=== PATIENT | male | born 1990 | race Caucasian/White ===

== ENCOUNTER 2020-11-21 18:09 | Emergency (ER) | payer OTHER, SELFPAY ==
--- NOTE | 2020-11-21 18:14 | ED.EYEPROB ---
HPI - Eye Problem General Chief complaint: Eye Problems Stated complaint: left eye Time Seen by Provider: 11/21/20 18:14 Source: patient and RN notes reviewed History of Present Illness HPI Narrative: Patient is a 30-year-old male who presents the urgent care with complaints of left eye redness and matted shut when he woke up this morning. Patient states he did not have time to be seen in the clinic earlier because he worked all day . Patient has not taken anything [id number] for his symptoms. States that he is having pain to the left eye. Denies of any known trauma or injury. No other acute complaints. No acute distress noted. Patient aware of the plan of care. Some parts of this dictation were generated by voice recognition software and may contain typographical and/or grammatical inaccuracies. Related Data Home Medications Medication Instructions Recorded Confirmed doxycycline hyclate 100 mg PO DAILY 11/21/20 11/21/20 ibuprofen 600 mg PO PRN PRN 11/21/20 11/21/20 sulfamethoxazole-trimethoprim 80 tablet PO DAILY 11/21/20 11/21/20 Allergies Allergy/AdvReac Type Severity Reaction Status Date / Time Penicillins Allergy Hives Verified 11/21/20 18:22 Review of Systems Review of Systems: CONSTITUTIONAL: Denies fever, chills, or sweats. EYES: Reports of redness, matting and pain to the left eye ENT: Denies rhinorrhea, congestion, sore throat, or otalgia. CARDIOVASCULAR: Denies chest pain, palpitations, or edema. RESPIRATORY: Denies cough or dyspnea. GASTROINTESTINAL: Denies abdominal pain, nausea, vomiting, or diarrhea. GENITOURINARY: Denies dysuria or hematuria. SKIN: Denies rash or itching. MUSCULOSKELETAL: Denies back pain, joint pain, or myalgia. NEUROLOGIC: Denies headache, numbness, or weakness. All other systems reviewed are negative, except as documented in HPI. PMFSH Comments At the time of my signature, I reviewed and agree with the nursing past medical, surgical, social, and family history. There is no relevant family history pertinent to the patient complaint. Exam Narrative: GENERAL: This is a well-nourished, well-developed patient, in no apparent distress. HEAD: normocephalic, atraumatic. EYES: PERRL. Sclera clear/white. Vision is grossly intact. Mild injected left conjunctive a with clear to yellow drainage from inner canthus lower lid hordeolum EARS: External ears normal NOSE: External nose normal with no obvious nasal discharge, nares without redness, no rhinorrhea. THROAT: Mucous membranes moist NECK: Neck supple CARDIOVASCULAR: Regular rate and rhythm without murmurs, gallops, or rubs. RESPIRATORY: Clear to auscultation. Breath sounds equal bilaterally. No wheezes, rales, or rhonchi. SKIN: warm, intact with no suspicious lesions or rash, good texture and turgor. NEURO: awake, alert, and oriented to person, place and time. There were no obvious focal neurologic abnormalities. EXTREMITIES: No clubbing, cyanosis, or edema. Course Vital Signs Vital signs: Vital Signs Temperature 99.3 F 11/21/20 18:25 Pulse Rate 78 11/21/20 18:25 Respiratory Rate 16 11/21/20 18:25 Blood Pressure 141/78 H 11/21/20 18:25 Pulse Oximetry 100 11/21/20 18:25 Temperature 99.3 F 11/21/20 18:25 Pulse Rate 78 11/21/20 18:25 Respiratory Rate 16 11/21/20 18:25 Blood Pressure 141/78 H 11/21/20 18:25 Pulse Oximetry 100 11/21/20 18:25 Reviewed-patient is informed that they may have pre-hypertension or hypertension based on a blood pressure reading in the department. I recommend the patient call the primary care provider listed on their discharge instructions or a physician of their choice this week to arrange follow-up for further evaluation of possible pre-hypertension or hypertension. MDM - Eye Problem MDM Narrative Medical decision making narrative: Advised patient to use a warm compress to the left eye. Make sure you are using a new wash rag with each application. Use the drops to
[2020-11-21 18:25] VITALS: BP 141/78; PULSE 78; RESP 16; TEMP 37.4; O2SAT 100
== END 2020-11-21 18:48 | disposition home or self-care (01) ==
PROVIDERS: Emergency Provider Nurse Practitioner Family
DX: H00.015 Hordeolum externum left lower eyelid (principal); Z79.1 Long term (current) use of non-steroidal anti-inflammatories (NSAID)
CPT/HCPCS: 99213; G0463

== ENCOUNTER 2021-07-12 18:15 | Emergency (ER) | payer OTHER, SELFPAY ==
--- NOTE | ~2021-07-12 | XR_ITS ---
EXAMINATION: XR chest 2V DATE: 07/12/2021 18:58 INDICATION: Cough and fever TECHNIQUE: PA and lateral views of the chest are obtained. COMPARISON: None available FINDINGS: There are minimal patchy bilateral airspace opacities in the mid and lower lung zones. Ther e is no pleural effusion or pneumothorax. The cardiomediastinal silhouette is normal. The visualized bones and soft tissues are unremarkable. IMPRESSION: 1. Minimal patchy airspace opacities of the mid and lower lung zones, consistent with atelectasis [place] pneumonia. Reviewed, dictated and finalized at location F. IMPRESSION: 1. Minimal patchy airspace opacities of the mid and lower lung zones, consisten t with atelectasis versus pneumonia.
[2021-07-12 18:20] VITALS: BP 140/86; PULSE 101; RESP 14; TEMP 37.6; O2SAT 98
--- NOTE | 2021-07-12 18:21 | ED.URI ---
HPI - URI/Sore Throat General Chief Complaint: Upper Respiratory Infection Stated Complaint: Fever/Sore Throat Time Seen by Provider: 07/12/21 18:44 Source: patient and RN notes reviewed Mode of arrival: ambulatory Limitations: no limitations History of Present Illness HPI Narrative: 30-year-old male presents with concern for fever up to 103, cough, chest tightness, sweats shortness of breath, scratchy throat. Reports he coughed 2 days ago causing a sudden pain in his mid upper back. Reports back pain is exacerbated by certain movements. Reports is relieved by laying on his side. He reports he has been taking DayQuil with minimal relief. He is a heavy smoker. MD elicited complaint: fever and cough Related Data Home Medications Medication Instructions Recorded Confirmed diazepam [Valium] 5 mg PO DAILY 07/12/21 07/12/21 divalproex [Depakote] 125 mg PO DAILY 07/12/21 07/12/21 Allergies Allergy/AdvReac Type Severity Reaction Status Date / Time Penicillins Allergy Hives Verified 07/12/21 18:39 Review of Systems Review of Systems: CONSTITUTIONAL: Reports malaise, chills, sweats, fever. EYES: Denies visual changes, redness, or discharge. ENT: Reports rhinorrhea, congestion, scratchy throat. Denies sinus pain, otalgia and sore throat. CARDIOVASCULAR: Denies chest pain, palpitations, or edema. RESPIRATORY: Reports cough. Denies dyspnea. GASTROINTESTINAL: Denies abdominal pain, nausea, vomiting, diarrhea SKIN: Denies rash or itching. MUSCULOSKELETAL: Denies myalgia. Reports back pain NEUROLOGIC: Denies headache. All systems reviewed & are unremarkable except as noted in HPI and below PMFSH Comments At time of signature, agree with nursing past medical, surgical, social and family history. There is no relevant family history pertinent to the presenting complaint Exam Narrative: GENERAL: Nontoxic-appearing and in no acute distress. HEAD: Normocephalic EYES: PERRLA, conjunctivae clear ENT: Nares clear, clear discharge. Mucous membranes moist. TM pearly morales with dull light reflex bilaterally; no tragal tenderness. Oropharynx erythematous without lesions. Tonsils enlarged and without exudate, no drooling, no hoarseness, no trismus, uvula midline. NECK: Supple. No lymphadenopathy CHEST: Clear to auscultation, breath sounds equal. No wheezing, rhonchi, rales, or stridor. No respiratory distress, speaks in full sentences. HEART: Regular rate and rhythm. No murmur heard. SKIN: Warm, no rash. Diaphoresis noted NEURO: Alert and oriented x3. PSYCH: Normal mood and affect Course Course Emergency Course: Patient is aware of diagnosis, understands and agrees to treatment plan. Anticipatory guidance given. Patient agrees to follow-up as directed and is aware of reasons to seek care at the emergency department. Portions of this record may have been created with voice recognition software Level of Care: Express Care Visit Vital Signs Vital signs: Reviewed. MDM - URI/Sore Throat MDM Narrative Medical decision making narrative: Differential diagnosis considered: Diallo virus, strep pharyngitis, allergic rhinitis, upper respiratory tract infection, sinusitis, rhinosinusitis, nasopharyngitis. viral pharyngitis, otitis media, otitis externa, pneumonia, bronchitis, viral cough syndrome, viral syndrome, and influenza. Exam findings show no acute concerns or changes; patient is non-toxic appearing and is in no distress. Patient is appropriate for outpatient treatment and follow-up. Lab Data Attestation: I reviewed the patient's lab results. Imaging Data My impression: Images reviewed, interpreted by radiologist, agree, see report. Radiologist's impression: EXAMINATION: XR chest 2V DATE: 07/12/2021 18:58 INDICATION: Cough and fever TECHNIQUE: PA and lateral views of the chest are obtained. COMPARISON: None available FINDINGS: There are minimal patchy bilateral airspace opacities in the mid and lower lung zones. There is no pleural
== END 2021-07-12 19:23 | disposition home or self-care (01) ==
PROVIDERS: Emergency Provider Nurse Practitioner; PCP Nurse Practitioner Family
DX: J18.1 Lobar pneumonia, unspecified organism (principal); K21.9 Gastro-esophageal reflux disease without esophagitis; E11.9 Type 2 diabetes mellitus without complications; F41.9 Anxiety disorder, unspecified
CPT/HCPCS: 71046; 87804; 99213; G0463

== ENCOUNTER 2023-06-18 14:59 | Emergency (ER) | payer OTHER, SELFPAY ==
[2023-06-18 15:10] VITALS: BP 137/88; PULSE 73; RESP 18; TEMP 37.2; O2SAT 100
--- NOTE | 2023-06-18 15:20 | ED.EYEPROB ---
HPI - Eye Problem General Chief complaint: Eye Problems Stated complaint: Eye Problem History of Present Illness HPI Narrative: Pt is a 32 y/o male, presents to with right eye crusting, mattering and itching since waking this morning. He denies vision changes or pain to the eye, he has no photophobia and he does not wear contact lenses or have hx of injury. He is caring for his son with pink eye and feels he must have contaminated his own eye, prompting his visit. He has no other complaints. Related Data Allergies Allergy/AdvReac Type Severity Reaction Status Date / Time Penicillins Allergy Swelling Verified 06/18/23 15:16 of Lip/Tongue/Throat Review of Systems Eyes: Comments: refer to HPI Exam Const: General: healthy appearing and no acute distress Nutritional Appearance: well nourished Orientation/consciousness: patient oriented x3 Limitations: no limitations HENMT: Head: normal to inspection Ears: external ears normal and TM's normal bilaterally Face and sinus: normal facial exam and sinuses nontender Mouth: Yes Normal oral and palatal mucosa present Throat: posterior oropharynx normal and uvula midline Eyes: Conjunctivae: conjunctival abnormality right conjunctival injection and discharge purulent Other: no periorbital swelling or erythema, no TTP Neck: Neck: normal visual inspection, no lymphadenopathy and no meningeal signs Resp: Effort & Inspection: normal respiratory effort Auscultation: clear to auscultation bilaterally Cardio: Rate: regular rate Rhythm: regular rhythm Neuro: General: patient oriented x3, moves all extremities, no meningeal signs, no focal motor deficits and CN's II-XI intact bilaterally Cranial nerves: Yes Nystagmus not present Speech: normal speech Gait exam (Neuro): Normal gait present Extrem: General: normal to inspection Course Course Emergency Course: plan to treat with abx eye drops, good hand washing stressed, FU with optometry or PCP if symptoms are not resolving Level of Care: Express Care Visit ([id number]) MDM - Eye Problem MDM Narrative Medical decision making narrative: plan to treat with abx eye drops, good hand washing stressed, FU with optometry or PCP if symptoms are not resolving, ER if pain or vision changes arise Differential Diagnosis Differential diagnosis: Likely conjunctivitis Discharge Plan Discharge Clinical Impression: Bacterial conjunctivitis Patient Disposition: Home, Self-Care Condition: Stable Instructions: Antibiotic Form, Conjunctivitis (ED) Additional Instructions: WASH HANDS WELL BEFORE AND AFTER INSTILLING EYE DROPS, USE DIRECTED, SEE YOUR EYE DOCTOR FOR FOLLOW UP IF SYMPTOMS ARE NOT RESOLVING IN 2 DAYS Prescriptions: New tobramycin 0.3 % drops 1 drp RIGHT EYE Q4H 5 Days Qty: 5 0RF Follow-up/Referrals: Luevano,Arleth Brooke APN [Primary Care Provider] - Stand Alone Forms: Work/School Release IP Time of Disposition: 15:36
== END 2023-06-18 15:42 | disposition home or self-care (01) ==
PROVIDERS: Emergency Provider Nurse Practitioner Family; PCP Nurse Practitioner Family
DX: H10.9 Unspecified conjunctivitis (principal)
CPT/HCPCS: 99213; G0463

== ENCOUNTER 2023-10-28 08:40 | Emergency (ER) | payer OTHER, SELFPAY ==
[2023-10-28 08:45] VITALS: BP 151/79; PULSE 85; RESP 18; TEMP 36.7; O2SAT 100
--- NOTE | 2023-10-28 08:48 | ED.ABDPAIN ---
HPI - Abdominal Pain General Chief Complaint: Abdominal Pain Stated Complaint: Abdominal Pain Time Seen by Provider: 10/28/23 08:48 Source: patient and RN notes reviewed Mode of arrival: ambulatory Limitations: no limitations History of Present Illness HPI narrative: 33 year old male presented for complaint of left-sided abdominal pain for 5 days. At the onset he reports vomiting which has resolved. Endorses diarrhea over the last 2 days. He denies hematochezia or melena. Denies chest pain, palpitations, dizziness, fevers or chills. He has been able to tolerate oral intake. Pain is described as sharp and stabbing occurring every 5 minutes. Has not taken anything for symptoms. Related Data Allergies Allergy/AdvReac Type Severity Reaction Status Date / Time Penicillins Allergy Swelling Verified 06/18/23 15:16 of Lip/Tongue/Throat Review of Systems Review of Systems: CONSTITUTIONAL: Denies body aches, fever, chills ENT: Denies rhinorrhea, congestion CARDIOVASCULAR: Denies chest pain, palpitations, or edema. RESPIRATORY: Denies cough or dyspnea. GASTROINTESTINAL: Endorses abdominal pain, nausea, vomiting, diarrhea. Denies hematochezia, melena, hematemesis GENITOURINARY: Denies dysuria, hematuria, or CVA tenderness. SKIN: Denies rash, itching, or wounds. MUSCULOSKELETAL: Denies back pain, joint pain, or myalgia. NEUROLOGIC: Denies headache, numbness, tingling, or weakness. All systems reviewed & are unremarkable except as noted in HPI and below PMFSH Social History Social History (Updated 10/28/23 @ 09:40 by Flora Sr, YENIFER) Smoking status: Current every day smoker Tobacco type: cigarettes Substance use type: marijuana Comments At time of signature, I have reviewed and agree with nursing past medical, surgical, social and family history unless otherwise noted. Please see nursing chart for further information. There is no relevant family history pertinent to the presenting complaint Exam Narrative: GENERAL: Well-appearing, and in no acute distress. EYES: EOMI. Conjunctivae normal. ENT: Mucous membranes pink and moist. CHEST: No respiratory distress. Clear to auscultation. HEART: Regular rate and rhythm. No murmur appreciated. Normal peripheral pulses. ABDOMEN: abd soft, nondistended, normal active bowel sounds. Tender abdomen LUQ and LLQ; No guarding, rebound tenderness, asymmetry SKIN: Warm, dry, no rash. Capillary refill normal. Normal skin turgor. NEURO: No focal deficits. Alert and oriented x3. PSYCH: Normal affect. Course Course Emergency Course: Patient is aware of diagnosis, understands and agrees to treatment plan. Anticipatory guidance given. Patient agrees to follow-up as directed and is aware of reasons to seek care at the emergency department. Portions of this record may have been created with voice recognition software Level of Care: Express Care Visit Vital Signs Vital signs: Vital Signs Temperature 98.1 F 10/28/23 08:45 Pulse Rate 85 10/28/23 08:45 Respiratory Rate 18 10/28/23 08:45 Blood Pressure 151/79 H 10/28/23 08:45 Pulse Oximetry 100 10/28/23 08:45 Oxygen Delivery Room Air 10/28/23 08:45 Temperature 98.1 F 10/28/23 08:45 Pulse Rate 85 10/28/23 08:45 Respiratory Rate 18 10/28/23 08:45 Blood Pressure 151/79 H 10/28/23 08:45 Pulse Oximetry 100 10/28/23 08:45 Oxygen Delivery Room Air 10/28/23 08:45 Transfer Transfered to: [facility]) Transportation: Other ( Private vehicle) Transfer rationale: Pt is agreeable to transfer. Requests transfer to [facility] via private vehicle/ ambulance. Risks of transportation reviewed with pt including injury, worsening of condition and . v/u. Report called to hospital, spoke with Lisa Silva NP, accepting physician. Pt is in stable condition at time of transfer. Advised to remain NPO and go directly to the hospital. MDM -
== END 2023-10-28 09:09 | disposition short-term general hospital (02) ==
PROVIDERS: Emergency Provider Nurse Practitioner Family; PCP Nurse Practitioner Family
DX: R10.32 Left lower quadrant pain (principal); F17.210 Nicotine dependence, cigarettes, uncomplicated; F12.90 Cannabis use, unspecified, uncomplicated
CPT/HCPCS: 99212; G0463

== ENCOUNTER 2024-03-21 11:33 | Emergency (ER) | payer SELFPAY ==
[2024-03-21 11:40] VITALS: BP 145/91; PULSE 101; RESP 16; TEMP 37.3; O2SAT 100
--- NOTE | 2024-03-21 13:09 | ED.GENADULT ---
HPI - General Adult General Chief complaint: Upper Respiratory Infection Stated complaint: Sore Throat Source: patient Mode of arrival: ambulatory Limitations: no limitations History of Present Illness HPI narrative: Patient presents for evaluation of sick symptoms since yesterday. Symptoms include fever, nasal congestion, thick green nasal discharge, cough, sore throat, bilateral otalgia and nausea. No chills, vomiting, diarrhea, shortness of breath. He smokes 1 ppd. He is not taking any medication to assist with his symptoms. A few of his family members have been sick recently. Related Data Allergies Allergy/AdvReac Type Severity Reaction Status Date / Time Penicillins Allergy Swelling Verified 03/21/24 12:35 of Lip/Tongue/Throat Review of Systems Review of Systems: CONSTITUTIONAL: Reports fever. Denies chills, or sweats. EYES: Denies visual changes, redness, or discharge. ENT: Reports sinus congestion, thick green drainage from the nares, sore throat, bilateral otalgia CARDIOVASCULAR: Denies chest pain, palpitations, or edema. RESPIRATORY: Reports cough. Denies shortness of breath. GASTROINTESTINAL: Reports nausea. Denies abdominal pain, vomiting, or diarrhea. GENITOURINARY: Denies dysuria or hematuria. SKIN: Denies rash or itching. MUSCULOSKELETAL: Denies back pain, joint pain, or myalgia. NEUROLOGIC: Denies headache, numbness, dizziness, or weakness. PSYCHIATRIC: Denies anxiety or depression. [facility] Past Medical History Medical History No pertinent past medical history Surgical History Surgical History History of tonsillectomy Family History Family History Mother Family history non-contributory Social History Social History Smoking packs per day: 1 Smoking cigarettes per day: 20.0 Smoking status: Current every day smoker Tobacco type: cigarettes Substance use type: marijuana Living arrangements: with family Gender identity (if verbalized by the patient): Male Spiritual care concerns: No Exam Narrative: GENERAL: Well-appearing, well-nourished, and in no acute distress. HEAD: Normocephalic, atraumatic. EYES: PERRLA and EOMI. ENT: Nares clear, no rhinorrhea or epistaxis. Mucous membranes moist. There is posterior pharyngeal erythema. Bilateral TMs pearly morales nonbulging NECK: Supple. No adenopathy or masses. No carotid bruits or JVD CHEST: Clear to auscultation. No respiratory distress. No wheezes rales or rhonchi HEART: Regular rate and rhythm. No murmur heard. Normal peripheral pulses. ABDOMEN: Soft, nontender, nondistended, normal active bowel sounds. EXTREMITIES: Normal range of motion. No edema. SKIN: Warm, dry, no rash. NEURO: No focal deficits. Alert and oriented x3. PSYCH: Normal mood and affect. Course Course Emergency Course: This is a 33-year-old male who presented for evaluation of sick symptoms. He meets criteria for bacterial sinusitis based upon mucopurulent discharge. Will discharge with azithromycin due to penicillin allergy. Will avoid a cephalosporins as his reaction to penicillins is angioedema. Advised smoking cessation. Follow up with primary provider. Go to the ER for worsening symptoms. Patient in agreement with plan of care. Level of Care: Express Care Visit Vital Signs Vital signs: Vital Signs Temperature 37.3 C 03/21/24 11:40 Pulse Rate 101 H 03/21/24 11:40 Respiratory Rate 16 03/21/24 11:40 Blood Pressure 145/91 H 03/21/24 11:40 Pulse Oximetry 03/21/24 11:40 Oxygen Delivery Room Air 03/21/24 11:40 Temperature 37.3 C 03/21/24 11:40 Pulse Rate 101 H 03/21/24 11:40 Respiratory Rate 16 03/21/24 11:40 Blood Pressure 145/91 H 03/21/24 11:40 Pulse Oximetry 100 03/21/24 11:40 Oxygen Delivery Room Air 03/21/24 11:40 Medical Decision Making Vital Signs Vital Signs: Vital Signs Temperature 37.3 C 03/21/24 11:40 Pulse Rate 101 H 03/21/24 11:40 Respiratory Rate 16 03/21/24 11:40 Blood Pressure 145/91 H 03/21/24 11:40 Pulse Oximetry 100 03/21/24 11:40 Oxygen Delivery Room Air 03/21/24 11:40 Temperature 37.3 C 03/21/24 11:40 Pulse Rate 101 H 03/21/24 11:40 Respiratory Rate 16 03/21/24 11:40 Blood Pressure 145/91 H 03/21/24 11:40 Pulse Oximetry 100 03/21/24 11:40 Oxygen Delivery Room Air 03/21/24 11:40 Lab Data Labs: Lab Results 03/21/24 Range/Units 13:10 POC Grp A Strep Screen Negative (Negative) Discharge Plan Discharge Clinical Impression: Sinusitis Patient Disposition: Home, Self-Care Condition: Stable Instructions: Antibiotic Form, Sinusitis (ED) Patient Language: Macedonian Prescriptions: New azithromycin 250 mg tablet See Rx Instructions .ROUTE .COMPLEX Qty: 6 0RF Rx Instructions: For 250 mg dose pack: take 500 mg today (day 1), then 250 mg for 4 days (days 2-5) Follow-up/Referrals: Luevano,Arleth Brooke APN [Primary Care Provider] - Stand Alone Forms: Work/School Release IP Time of Disposition: 13:07
[2024-03-21 13:12] LABS: EDSTREPNEGPOS1 Negative (Negative)
--- OUTSIDE RECORDS SUMMARY | 2024-03-28 06:36 | XMS_ITS | Data Portability ---
Author Organization [facility] [place] [facility] Address [address] [facility] [place] [address] Care Team Providers Care Professor Of Anthropology Name Role Phone ARLETH PATEL Primary Care Provider Assessment No assessment recorded. Plan of Treatment Reminders Order Date Submit Date Provider Last Modified By Organization Details Last Modified Time Details Appointments None recorded. Lab HbA1c (hemoglobin A1c), blood 2021 022 LEATHA In-Office Order, Internal Use Only DO Not Attach Compendium DO Not Attach Compendium, Do Not Delete/merge, [id number] 12:18:51 amylase + lipase, serum 2021 022 LEAT[facility], [address] [facility], [facility] [address], [place], [address], 08:08:44 H pylori urea breath test, co2 infrared 2021 022 LEATHA [facility], [address] [facility], [facility], [place], [address], 08:08:42 CMP, serum or plasma 2021 022 LE[facility]HA [facility], [address] [facility], [facility], [place], [address], 08:08:42 CBC w/ auto diff 2021 022 LE[facility], [address] [facility], [facility], [place], [address], 10/02/202 2 08:08:43 TSH, ultra-sensi tive, serum 2022 023 [facility], [address], [place], [address], 3 04:20:50 CMP, serum or plasma 2022 023 [facility], [address], [place], [address], 3 20:08:58 lipid panel, serum 2022 023 [facility] [facility], [address], [place], [address], 3 20:08:58 CBC 2022 023 [facility], [address], [place], [address], 3 20:08:59 Referral general surgeon referral 2023 024 [email or web address] [facility], [address] [facility], [address], [facility] Medical Office [facility], [place], [address], 4 12:11:18 Procedures None recorded. Surgeries None recorded. Imaging XR, abdomen 2021 022 [email or web address] [facility]) Scheduling, 2 [place], [address], 3 08:32:37 XR, knee, 3 view 2022 023 LEATHA [facility] ([facility]) Scheduling, 2 [place], [address], 3 03:07:18 XR, chest, 2 view 2022 023 LEATHA [facility] ([facility]) Scheduling, 2 [facility] [place], [address], 3 03:07:09 Medication Orders neomycin-po lymyxin-hyd rocort 3.5 mg-10,000 unit/mL-1 % ear drops,susp 2021 022 [email or web address] [facility] [id number], [address], 3 11:28:54 butalbital- acetaminoph en-caffeine 50 mg-325 mg-40 mg tablet 2021 022 [email or web address] [facility] [id number] In [facility], [address] [place] [address], [address], 3 11:28:48 albuterol sulfate HFA 90 mcg/actuati on aerosol inhaler 2022 024 [facility] [id number], [address], 4 11:30:45 ondansetron HCl 8 mg tablet 2023 024 [facility] [id number], [address], 4 11:56:57 Patient TargetsNo targets recorded. Patient Instructions Encounter Date Encounter Id Patient Instructions Last Modified By Organization Details Last Modified Time 07/27/2021 [id number] Quitting Tobacco : Care Instructions Not available 07/27/2021 15:42:05 When You Want to Lose Weight: Care Instructions Not available 07/27/2021 15:42:05 Take all antibiotics prescribed to you. If any fever or increase in pain, call/return to office. Not available 07/27/2021 15:41:58 keep f/u as planned Not available 07/27/2021 15:42:03 10/26/2021 [id number] learning about high blood sugar Not available 10/26/2021 12:05:20 Quitting Tobacco : Care Instructions Not available 10/26/2021 12:05:20 Learning About Benefits of Quitting Smoking Not available 10/26/2021 12:05:20 tobacco cessation Not availabl e 10/26/2021 12:05:20 When You Want to Lose Weight: Care Instructions Not available 10/26/2021 12:05:20 back care and preventing injuries: care instructions Not available 10/26/2021 12:05:20 tension headache : care instructions Not available 10/26/2021 12:05:20 Cont on current medications. Not available 10/26/2021 12:05:36 f/u 6 months DWP barriers to care: none Not available 10/26/2021 12:05:45 12/18/2021 [id number] Quitting Tobacco : Care Instructions Not available 12/18/2021 15:55:56 When You Want to Lose Weight: Care Instructions Not available 12/18/2021 15:52:48 abdominal pain: care instructions Not available 12/18/2021 15:52:48 Increase clear fluids. BRAT (bananas, rice, applesauce, toast) diet. If pain increases or if fever, go to ER. May need to f/u with GI if persists medical terminologist. Keep log of foods/symptoms. Not available 12/18/2021 15:55:39 Plan pending imaging and lab results. f/u as needed DWP barriers to care: none Not available 12/18/2021 15:55:32 12/07/2022 [id number] A healthy lifestyle: care instructions Not available 12/07/2022 16:38:33 Quitting Tobacco : Care Instructions Not available 12/07/2022 11:51:20 cough: care instructions Not available 12/07/2022 11:51:19 Increase intake of fresh fruits,?? and vegetables. Avoid packaged foods and fast foods. ?? Follow a low salt diet, drink at least 8-10 8oz glasses of water a day, exercise most days of the week. Take all medications as prescribed. Keep appointments with PCP and all specialists. [facility] Not available 12/07/2022 11:53:17 Plan pending imaging results. f/u as needed DWP barriers to care: none [facility] Not available 12/07/2022 11:53:11 11/24/2023 [id number] nausea and vomiting: care instructions s4 Not available 11/24/2023 11:56:53 A healthy lifestyle: care instructions s4 Not available 11/24/2023 11:56:53 Quitting Tobacco : Care Instructions [facility] Not available 11/24/2023 11:59:50 How can you care for yourself at home? Eat many small meals and snacks each day instead of three large meals. Choose lean meats. Eat no more than 5 to 6?? ounces of meat a day. Cut off all fat you can see. Eat chicken and turkey without the skin. Many types of fish, such as salmon, lazo trout, tuna, and elkins, provide healthy omega-3 fat. But, avoid fish canned in oil, such as sardines in olive oil. Bake, broil, or grill meats, poultry, or fish instead of frying them in butter or fat. Drink or eat nonfat or low-fat milk, yogurt, cheese, or other milk products each day. Read the labels on cheeses, and choose those with less than 5 grams of fat an ounce. Try fat-free sour cream, cream cheese, or yogurt. Avoid cream soups and cream sauces on pasta. Eat low-fat ice cream, frozen yogurt, or sorbet. Avoid regular ice cream. Eat whole-grain cereals, breads, crackers, rice, or pasta. Avoid high-fat foods such as croissants, scones, biscuits, waffles, doughnuts, muffins, granola, and high-fat breads. Flavor your foods with herbs and spices (such as basil, tarragon, or mint), fat-free sauces, or lemon juice instead of butter. You can also use butter substitutes, fat-free mayonnaise, or fat-free dressing. Try applesauce, prune puree, or mashed bananas to replace some or all of the fat when you bake. Limit fats and oils, such as butter, margarine, mayonnaise, and salad dressing, to no more than 1 tablespoon a meal. Avoid high-fat foods, such as: Chocolate, whole milk, ice cream, and processed cheese. Fried or buttered foods. Sausage, salami, and nguyen. Cinnamon rolls, cakes, pies, cookies, and other pastries. Prepared snack foods, such as potato chips, nut and granola bars, and mixed nuts. Coconut and avocado. Learn how to read food labels for serving sizes and ingredients. Fast-food and convenience-food meals often have lots of fat. Not available 11/24/2023 11:59:32 follow up as needed Not available 11/24/2023 11:59:50 Reason for Referral General Surgeon Referral for Cholelithiasis without obstruction Referring Physician: Arleth Patel, Family Medicine, Encounter Date: 11/24/2023 Results Created Date Observation Date Name Description Value Unit Range Abnormal Flag Note LastModifiedBy Organization Detail LastModifiedTime 10/27/19 22 10/26/2021 HbA1c (hemo globi n A1c), blood HbA1c 5.6 Not Available In-Office Order Internal Use Only DO Not Attach Compendium DO Not Attach Compendium, Do Not Delete/merge, [id number] 10/26/2021 11:57:31 12/19/19 22 12/20/2021 H PYLOR I BREAT H TEST H pylori breath test Negati ve negati ve Not Available [facility] ([facility]) [address] [facility], [place], [address], 12/20/2021 08:08:42 12/19/19 22 12/19/2021 COMP. METAB OLIC PANEL (14) glucose 86 mg/dL 70-99 Ple ase note refer ence inter roxann stephany e Not Available [facility] ([facility]) [address] [facility], [place], [address], 12/20/2021 08:08:42 12/19/19 22 12/19/2021 COMP. METAB OLIC PANEL (14) BUN 12 mg/dL 6-20 Not Available [facility] ([facility]) [address] [facility], [place], [address], 12/20/2021 08:08:42 12/19/19 22 12/19/2021 COMP. METAB OLIC PANEL (14) creatinine 0.79 mg/dL 0.76-1 .27 Not Available [facility] ([facility]) [address] [facility], [place], [address], 12/20/2021 08:08:42 12/19/19 22 12/19/2021 COMP. METAB OLIC PANEL (14) eGFR 121 mL/mi n/1.7 3 >59 Not Available [facility] ([facility]) [address] [facility], [place], [address], 12/20/2021 08:08:42 12/19/19 22 12/19/2021 COMP. METAB OLIC PANEL (14) BUN/creatini ne ratio 15 9-20 Not Available [facility] ([facility]) [address] [facility], [place], [address], 12/20/2021 08:08:42 12/19/19 22 12/19/2021 COMP. METAB OLIC PANEL (14) sodium 145 mmol/ L 134-14 4 above high normal Not Available [facility] ([facility]) [address] [facility], [place], [address], 12/20/2021 08:08:42 12/19/19 22 12/19/2021 COMP. METAB OLIC PANEL (14) potassium 4.0 mmol/ L 3.5-5. 2 Not Available [facility] ([facility]) [address] [facility], [place], [address], 12/20/2021 08:08:42 12/19/19 22 12/19/2021 COMP. METAB OLIC PANEL (14) chloride 104 mmol/ L 96-106 Not Available [facility] ([facility]) [address] [place], [address], 12/20/2021 08:08:42 12/19/19 22 12/19/2021 COMP. METAB OLIC PANEL (14) carbon dioxide, total 23 mmol/ L 20-29 Not Available [facility] ([facility]) [address] [place], [address], 12/20/2021 08:08:42 12/19/19 22 12/19/2021 COMP. METAB OLIC PANEL (14) calcium 9.5 mg/dL 8.7-10 .2 Not Available [facility] ([facility]) [address] [place], [address], 12/20/2021 08:08:42 12/19/19 22 12/19/2021 COMP. METAB OLIC PANEL (14) protein, total 7.1 g/dL 6.0-8. 5 Not Available [facility] ([facility]) [address] [place], [address], 12/20/2021 08:08:42 12/19/19 22 12/19/2021 COMP. METAB OLIC PANEL (14) albumin 5.0 g/dL 4.0-5. 0 Not Available [facility] ([facility]) [address] [place], [address], 12/20/2021 08:08:42 12/19/19 22 12/19/2021 COMP. METAB OLIC PANEL (14) globulin, total 2.1 g/dL 1.5-4. 5 Not Available [facility] ([facility]) [address] [place], [address], 12/20/2021 08:08:42 12/19/19 22 12/19/2021 COMP. METAB OLIC PANEL (14) A/G ratio 2.4 1.2-2. 2 above high normal Not Available [facility] ([facility]) [address] [place], [address], 12/20/2021 08:08:42 12/19/19 22 12/19/2021 COMP. METAB OLIC PANEL (14) bilirubin, total 0.2 mg/dL 0.0-1. 2 Not Available [facility] ([facility]) [address] [place], [address], 12/20/2021 08:08:42 12/19/19 22 12/19/2021 COMP. METAB OLIC PANEL (14) alkaline phosphatase 81 IU/L 44-121 Not Available [facility] ([facility]) [address] [facility], [place], [address], 12/20/2021 08:08:42 12/19/19 22 12/19/2021 COMP. METAB OLIC PANEL (14) AST (SGOT) 14 IU/L 0-40 Not Available [facility] ([facility]) [address] [facility], [place], [address], 12/20/2021 08:08:42 12/19/19 22 12/19/2021 COMP. METAB OLIC PANEL (14) ALT (SGPT) 17 IU/L 0-44 Not Available [facility] ([facility]) [address] [facility], [place], [address], 12/20/2021 08:08:42 12/19/19 22 12/19/2021 CBC WITH DIFFE RENTI AL/PL ATELE T WBC 10.2 x10e3 /uL 3.4-10 .8 Not Available [facility] ([facility]) [address] [facility], [place], [address], 12/20/2021 08:08:43 12/19/19 22 12/19/2021 CBC WITH DIFFE RENTI AL/PL ATELE T RBC 5.03 x10e6 /uL 4.14-5 .80 Not Available [facility] ([facility]) [address] [facility], [place], [address], 12/20/2021 08:08:43 12/19/19 22 12/19/2021 CBC WITH DIFFE RENTI AL/PL ATELE T hemoglobin 14.9 g/dL 13.0-1 7.7 Not Available [facility] ([facility]) [address] [facility], [place], [address], 12/20/2021 08:08:43 12/19/19 22 12/19/2021 CBC WITH DIFFE RENTI AL/PL ATELE T hematocrit 45.0 % 37.5-5 1.0 Not Available [facility] ([facility]) [address] [facility], [place], [address], 12/20/2021 08:08:43 12/19/19 22 12/19/2021 CBC WITH DIFFE RENTI AL/PL ATELE T MCV 90 fL 79-97 Not Available [facility] ([facility]) [address] [facility], [place], [address], 12/20/2021 08:08:43 12/19/19 22 12/19/2021 CBC WITH DIFFE RENTI AL/PL ATELE T MCH 29.6 pg 26.6-3 3.0 Not Available [facility] ([facility]) [address] [facility], [place], [address], 12/20/2021 08:08:43 12/19/19 22 12/19/2021 CBC WITH DIFFE RENTI AL/PL ATELE T MCHC 33.1 g/dL 31.5-3 5.7 Not Available [facility] ([facility]) [address] [place], [address], 12/20/2021 08:08:43 12/19/19 22 12/19/2021 CBC WITH DIFFE RENTI AL/PL ATELE T RDW 13.1 % 11.6-1 5.4 Not Available [facility] ([facility]) [address] [facility], [place], [address], 12/20/2021 08:08:43 12/19/19 22 12/19/2021 CBC WITH DIFFE RENTI AL/PL ATELE T platelets 265 x10e3 /uL 150-45 0 Not Available [facility] ([facility]) [address] [facility], [place], [address], 12/20/2021 08:08:43 12/19/19 22 12/19/2021 CBC WITH DIFFE RENTI AL/PL ATELE T neutrophils 51 % notest ab. Not Available [facility] ([facility]) [address] [facility], [place], [address], 12/20/2021 08:08:43 12/19/19 22 12/19/2021 CBC WITH DIFFE RENTI AL/PL ATELE T lymphs 35 % notest ab. Not Available [facility] ([facility]) [address] [facility], [place], [address], 12/20/2021 08:08:43 12/19/19 22 12/19/2021 CBC WITH DIFFE RENTI AL/PL ATELE T monocytes 7 % notest ab. Not Available [facility] ([facility]) [address] [facility], [place], [address], 12/20/2021 08:08:43 12/19/19 22 12/19/2021 CBC WITH DIFFE RENTI AL/PL ATELE T eos 5 % notest ab. Not Available [facility] ([facility]) [address] [facility], [place], [address], 12/20/2021 08:08:43 12/19/19 22 12/19/2021 CBC WITH DIFFE RENTI AL/PL ATELE T basos 1 % notest ab. Not Available [facility] ([facility]) [address] [facility], [place], [address], 12/20/2021 08:08:43 12/19/19 22 12/19/2021 CBC WITH DIFFE RENTI AL/PL ATELE T neutrophils (absolute) 5.3 x10e3 /uL 1.4-7. 0 Not Available [facility] ([facility]) [address] [place], [address], 12/20/2021 08:08:43 12/19/19 22 12/19/2021 CBC WITH DIFFE RENTI AL/PL ATELE T lymphs (absolute) 3.6 x10e3 /uL 0.7-3. 1 above high normal Not Available [facility] ([facility]) [address] [place], [address], 12/20/2021 08:08:43 12/19/19 22 12/19/2021 CBC WITH DIFFE RENTI AL/PL ATELE T monocytes(ab solute) 0.7 x10e3 /uL 0.1-0. 9 Not Available [facility] ([facility]) [address] [place], [address], 12/20/2021 08:08:43 12/19/19 22 12/19/2021 CBC WITH DIFFE RENTI AL/PL ATELE T eos (absolute) 0.5 x10e3 /uL 0.0-0. 4 above high normal Not Available [facility] ([facility]) [address] [place], [address], 12/20/2021 08:08:43 12/19/19 22 12/19/2021 CBC WITH DIFFE RENTI AL/PL ATELE T baso (absolute) 0.1 x10e3 /uL 0.0-0. 2 Not Available [facility] ([facility]) [address] [place], [address], 12/20/2021 08:08:43 12/19/19 22 12/19/2021 CBC WITH DIFFE RENTI AL/PL ATELE T immature granulocytes 1 % notest ab. Not Available [facility] ([facility]) [address] [facility], [place], [address], 12/20/2021 08:08:43 12/19/19 22 12/19/2021 CBC WITH DIFFE RENTI AL/PL ATELE T immature grans (abs) 0.1 x10e3 /uL 0.0-0. 1 Not Available [facility] ([facility]) [address] [facility], [place], [address], 12/20/2021 08:08:43 12/19/19 22 12/19/2021 BISHOP+L IPASE amylase 24 U/L 31-110 below low normal Not Available [facility] ([facility]) [address] [facility], [place], [address], 12/20/2021 08:08:44 12/19/19 22 12/19/2021 BISHOP+L IPASE lipase 48 U/L 13-78 Not Available [facility] ([facility]) [address] [facility], [place], [address], 12/20/2021 08:08:44 12/10/19 23 12/09/2022 LIPID PANEL cholesterol, total 142 mg/dL 100-19 9 Not Available [facility] [address] [place], [address], 12/09/2022 20:08:58 12/10/19 23 12/09/2022 LIPID PANEL triglyceride s 104 mg/dL 0-149 Not Available [facility] Department [address] [place], [address], 12/09/2022 20:08:58 12/10/19 23 12/09/2022 LIPID PANEL HDL cholesterol 35 mg/dL 40-999 below low normal Not Available [facility] [address] [place], [address], 12/09/2022 20:08:58 12/10/19 23 12/09/2022 LIPID PANEL VLDL cholesterol faviola 21 mg/dL 5-40 Not Available [facility] Department [address] [place] [address], [address], 12/09/2022 20:08:58 12/10/19 23 12/09/2022 LIPID PANEL LDL chol calc (nih) 99 mg/dL 0-99 Not Available [facility] Department [address] [place] [address], [address], 12/09/2022 20:08:58 12/10/19 23 12/09/2022 COMP. METAB OLIC PANEL (14) glucose 118 mg/dL 70-99 above high normal Not Available [facility] [address] [place] [address], [address], 12/09/2022 20:08:58 12/10/19 23 12/09/2022 COMP. METAB OLIC PANEL (14) BUN 9 mg/dL 6-20 Not Available [facility] [address] [place] [address], [address], 12/09/2022 20:08:58 12/10/19 23 12/09/2022 COMP. METAB OLIC PANEL (14) creatinine 0.94 mg/dL 0.76-1 .27 Not Available [facility] [address] [place] [address], [address], 12/09/2022 20:08:58 12/10/19 23 12/09/2022 COMP. METAB OLIC PANEL (14) eGFR 110 >=60 Units for eGFR value s are mL/mi n/1.7 3 The eGFR Calcu latio n has not been valid ated for patie nts under the age of 18. If test resul ts are displ ayed for a patie nt under the age of 18, disre roly that value . Not Available [facility] Department [address] [place] [address], [address], 12/09/2022 20:08:58 12/10/19 23 12/09/2022 COMP. METAB OLIC PANEL (14) BUN/creatini ne ratio 10 9-20 Not Available [facility] Department [address] [place], [address], 12/09/2022 20:08:58 12/10/19 23 12/09/2022 COMP. METAB OLIC PANEL (14) sodium 141 mmol/ L 134-14 4 Not Available [facility] [address] [place], [address], 12/09/2022 20:08:58 12/10/19 23 12/09/2022 COMP. METAB OLIC PANEL (14) potassium 4.2 mmol/ L 3.5-5. 2 Not Available [facility] [address] [place], [address], 12/09/2022 20:08:58 12/10/19 23 12/09/2022 COMP. METAB OLIC PANEL (14) chloride 105 mmol/ L 96-106 Not Available [facility] [address] [place], [address], 12/09/2022 20:08:58 12/10/19 23 12/09/2022 COMP. METAB OLIC PANEL (14) carbon dioxide, total 25 mmol/ L 20-29 Not Available [facility] [address] [place], [address], 12/09/2022 20:08:58 12/10/19 23 12/09/2022 COMP. METAB OLIC PANEL (14) calcium 9.0 mg/dL 8.7-10 .2 Not Available [facility] [address] [place], [address], 12/09/2022 20:08:58 12/10/19 23 12/09/2022 COMP. METAB OLIC PANEL (14) protein, total 6.6 g/dL 6.0-8. 5 Not Available [facility] [address] [place], [address], 12/09/2022 20:08:58 12/10/19 23 12/09/2022 COMP. METAB OLIC PANEL (14) albumin 4.5 g/dL 4.1-5. 1 Not Available [facility] Department [address] [place] [address], [address], 12/09/2022 20:08:58 12/10/19 23 12/09/2022 COMP. METAB OLIC PANEL (14) globulin, total 2.1 g/dL 1.5-4. 5 Not Available [facility] [address] [place] [address], [address], 12/09/2022 20:08:58 12/10/19 23 12/09/2022 COMP. METAB OLIC PANEL (14) A/G ratio 2.0 1.2-2. 2 Not Available [facility] [address] [place] [address], [address], 12/09/2022 20:08:58 12/10/19 23 12/09/2022 COMP. METAB OLIC PANEL (14) bilirubin, total 0.3 mg/dL 0.0-1. 2 Not Available [facility] Department [address] [place] [address], [address], 12/09/2022 20:08:58 12/10/19 23 12/09/2022 COMP. METAB OLIC PANEL (14) alkaline phosphatase 79 IU/L 44-121 Not Available [facility] Department [address] [place] [address], [address], 12/09/2022 20:08:58 12/10/19 23 12/09/2022 COMP. METAB OLIC PANEL (14) AST (SGOT) 13 IU/L 0-40 Not Available [facility] Department [address] [place], [address], 12/09/2022 20:08:58 12/10/19 23 12/09/2022 COMP. METAB OLIC PANEL (14) ALT (SGPT) 18 IU/L 0-44 Not Available [facility] Department [address] [place], [address], 12/09/2022 20:08:58 12/10/1912/09/2022 CBC, NO DIFFE RENTI AL/PL ATELE T WBC 8.4 x10e3 /uL 3.4-10 .8 Not Available [facility] [address] [place], [address], 12/09/2022 20:08:59 12/10/19 23 12/09/2022 CBC, NO DIFFE RENTI AL/PL ATELE T RBC 5.07 x10e6 /uL 4.14-5 .80 Not Available [facility] Department [address] [place], [address], 12/09/2022 20:08:59 12/10/19 23 12/09/2022 CBC, NO DIFFE RENTI AL/PL ATELE T hemoglobin 14.9 g/dL 13.0-1 7.7 Not Available [facility] [address] [place], [address], 12/09/2022 20:08:59 12/10/1912/09/2022 CBC, NO DIFFE RENTI AL/PL ATELE T hematocrit 46.3 % 37.5-5 1.0 Not Available [facility] [address] [place], [address], 12/09/2022 20:08:59 12/10/1912/09/2022 CBC, NO DIFFE RENTI AL/PL ATELE T MCV 91 fL 79-97 Not Available [facility] [address] [place], [address], 12/09/2022 20:08:59 12/10/1912/09/2022 CBC, NO DIFFE RENTI AL/PL ATELE T MCH 29.4 pg 26.6-3 3.0 Not Available [facility] [address] [place], [address], 12/09/2022 20:08:59 12/10/19 23 12/09/2022 CBC, NO DIFFE RENTI AL/PL ATELE T MCHC 32.2 g/dL 31.5-3 5.7 Not Available [facility] [address] [place], [address], 12/09/2022 20:08:59 12/10/19 23 12/09/2022 CBC, NO DIFFE RENTI AL/PL ATELE T RDW 13.4 % 11.5-1 4.5 Not Available [facility] [address] [place], [address], 12/09/2022 20:08:59 12/10/19 23 12/09/2022 CBC, NO DIFFE RENTI AL/PL ATELE T NRBC 0 % 0-0 Not Available [facility] [address] [place], [address], 12/09/2022 20:08:59 12/10/19 23 12/11/2022 TSH RFX ON ABNOR MAL TO FREE T4 TSH 1.220 uIU/m L 0.450- 4.500 Not Available [facility] ([facility]) [address] [facility], [place], [address], 12/11/2022 04:20:50 12/11/19 23 12/08/2022 XR, chest , 2 view No observ ation record ed. [email or web address] [facility] [address] [place], [address], 12/20/2022 08:23:25 12/11/19 23 12/08/2022 XR, knee, 3 view No observ ation record ed. [address], [address], 12/14/2022 17:50:52 Result Notes None recorded. Problems Name Problem SNOMED Code Status Onset Date Resolution Date Notes Provider Name and Address Organization Details Recorded Time Tension-typ e headache 338173876 Active 2020 Arleth Patel APN ENTER[employer]ISE ACCOUNT MANAGER-C Attn: Princeelizabeth barboza,20[address] [facility], [place], [place], [address] [place] [address] 2, [facility] 1 11:49:24 Low back pain 559817001 Active 2020 Arleth Patel APN ENTERPRISE ACCOUNT MANAGER-C Attn: Vanessa tamra,20[address] [facility], [place], [place], [address] [place] [address] 2, [facility] - [facility] 1 11:49:44 Overweight 191634048 Active 2020 Arleth Patel APN ENTERPRISE ACCOUNT MANAGER-C Attn: Princeelizabeth barboza,20[address] [facility], [place], [place], [address] [place] [address] 2, [facility] - [facility] 1 11:51:08 Hyperglycem ia 54703297 Active 2021 Arleth Patel APN ENTER[employer]ISE ACCOUNT MANAGER-C Attn: Vanessa tamra,[address] [facility], [place], [place], [address] [place] [address] 2, [facility] - [facility] 2 12:44:23 Tobacco user 222801060 Active 2021 Arleth Patel APN ENTERPRISE ACCOUNT MANAGER-C Attn: Vanessa tamra,[address] [facility], [place], [place], [address] [place] [address] 2, [facility] - [facility] 2 12:44:32 Otitis externa of right ear 0184107037788 101 Active 2021 Arleth Patel APN ENTERPRISE ACCOUNT MANAGER-C Attn: Vanessa tamra,[address] [facility], [place], [place], [address] [place] [address] 2, [facility] - [facility] 2 15:42:11 Problem Notes None recorded. Procedures Surgical History Date Name Laterality Status Provider Name and Address Organization Details Recorded Time 01/31/2008 Knee arthroscop y/surgery completed Lonny Anne MA [facility] 03/09/2021 11:27:15 12/28/2006 Knee arthroscop y/surgery completed Lonny Anne MA [facility] 03/09/2021 11:27:02 Imaging Results Imaging Date Name Status LastModified by Organiz ation Details LastModified Time 12/08/2022 XR, chest, 2 view completed [email or web address] [facility] 1 [place], [address], 12/20/2022 08:23:25 12/08/2022 XR, knee, 3 view completed [facility] 1 [place], [address], 12/14/2022 17:50:52 Procedure Notes None recorded. Medical Equipment None Reported. Allergies Allergen ID Allergen Name Allergen Category Reaction Reaction Severity Criticality Documentation Date Start Date Code Code System Note Provider Name and Address Organization Details Recorded Time 933618 Medicinal product containin g penicilli n and acting as antibacte rial agent (product) medicatio n hives moderate Not available 03/09/2021 60934 05 SNOMED Lonny Anne MA [place], [place] - [facility] 11:19:59 Medications Name Sig Start Date Stop Date Status Note LastModified by Organization Details LastModified Time cyclobenzap rine 10 mg tablet Take 1 tablet as needed by oral route at bedtime. 07/27 completed Not Available Not Available Not Available doxycycline hyclate 100 mg capsule 03/09 completed Not Available Not Available Not Available azithromyci n 250 mg tablet TAKE 2 TABLETS BY MOUTH TODAY, THEN TAKE 1 TABLET DAILY FOR 4 DAYS 07/27 completed Not Available Not Available Not Available ondansetron HCl 8 mg tablet Take 1 tablet twice a day by oral route as needed, for nausea and vomiting. active Not Available Not Available No t Available sumatriptan 25 mg tablet 03/09 completed Not Available Not Available Not Available ondansetron HCl 4 mg tablet TAKE 1-2 TABLETS BY MOUTH EVERY 8 HOURS NEEDED FOR NAUSEA - 1ST LINE. 12/07 completed Not Available Not Available Not Available prednisone 20 mg tablet TAKE 3 TABLETS BY MOUTH DAILY FOR 5 DAYS 07/27 completed Not Available Not Available Not Available sulfamethox azole 800 mg-trimetho prim 160 mg tablet 03/09 completed Not Available Not Available Not Available butalbital- acetaminoph en-caffeine 50 mg-325 mg-40 mg tablet Take 1 tablet every 4 hours by oral route as needed. 12/07 completed Not Available Not Available Not Available dicyclomine 20 mg tablet TAKE 1 TABLET BY MOUTH EVERY 6 HOURS 12/07 completed Not Available Not Available Not Available tobramycin 0.3 % eye drops 1 DRP INTO RIGHT EYE EVERY 4 HOURS FOR 5 DAYS 11/23 completed Not Available Not Available Not Available divalproex 125 mg tablet,robert yed release 11/23 completed Not Available Not Available Not Available diclofenac sodium 50 mg tablet,robert yed release TAKE 1 TABLET BY MOUTH TWICE A DAY 11/23 completed Not Available Not Available Not Available ibuprofen 600 mg tablet 03/09 completed Not Available Not Available Not Available levofloxaci n 750 mg tablet TAKE 1 TABLET BY MOUTH EVERY DAY FOR 10 DAYS. 07/27 completed Not Available Not Available Not Available albuterol sulfate HFA 90 mcg/actuati on aerosol inhaler INHALE 2 PUFFS EVERY 4 HOURS BY INHALATIO N ROUTE NEEDED 11/23 completed Not Available Not Available Not Available sertraline 50 mg tablet 11/23 completed Not Available Not Available Not Available diazepam 5 mg tablet 12/07 completed Not Available Not Available Not Available hydroxyzine pamoate 25 mg capsule 11/23 completed Not Available Not Available Not Available neomycin-po lymyxin-hyd rocort 3.5 mg-10,000 unit/mL-1 % ear drops,susp INSTILL 4 DROPS INTO AFFECTED EAR(S) BY OTIC ROUTE 3 TIMES PER DAY FOR 7DAYS 12/07 completed Not Available Not Available Not Available COVID-19 test specimen collection TEST DIRECTED 03/09 completed Not Available Not Available Not Available Vitals Date Recorded Body height Body mass index (BMI) Body weight Oxygen saturation Oxygen saturation in Arterial blood by Pulse oximetry Heart rate Respiratory rate Body temperature Systolic blood pressure Diastolic blood pressure Provider Name and Address Organization Details Last Updated DateTime 2 180.34 cm 28.2 kg/m2 56787.6 6 g 98 % 98 % 78 /min 16 /min 97.7 [degF] 124 mm[Hg] 80 mm[Hg] Piper HOWELL - [facility] 2 15:14:02 Date Recorded Body height Body mass index (BMI) Body weight Oxygen saturation Oxygen saturation in Arterial blood by Pulse oximetry Heart rate Respiratory rate Body temperature Systolic blood pressure Diastolic blood pressure Provider Name and Address Organization Details Last Updated DateTime 2 180.34 cm 28.5 kg/m2 73004.2 8 g 97 % 97 % 99 /min 14 /min 97.3 [degF] 128 mm[Hg] 84 mm[Hg] Minnie Ortiz MA [facility] SI 2 11:54:18 Date Recorded Body height Body mass index (BMI) Body weight Oxygen saturation Oxygen saturation in Arterial blood by Pulse oximetry Respiratory rate Heart rate Body temperature Systolic blood pressure Diastolic blood pressure Provider Name and Address Organization Details Last Updated DateTime 2 180.34 cm 28.9 kg/m2 49577.7 2 g 98 % 98 % 16 /min 104 /min 97.3 [degF] 142 mm[Hg] 88 mm[Hg] Meravt Tanner MA [facility] SI 2 15:18:14 Date Recorded Systolic blood pressure Diastolic blood pressure Provider Name and Address Organization Details Last Updated DateTime 12/18/2021 138 mm[Hg] 88 mm[Hg] Arleth Patel APN, ENTERPRISE ACCOUNT MANAGER-C Attn: Accounting,[address] [place], [address], [facility] 12/18/2021 15:50:52 Date Recorded Body height Body mass index (BMI) Body weight Oxygen saturation Oxygen saturation in Arterial blood by Pulse oximetry Heart rate Respiratory rate Body temperature Systolic blood pressure Diastolic blood pressure Provider Name and Address Organization Details Last Updated DateTime 3 180.34 cm 26.6 kg/m2 83078.1 4 g 97 % 97 % 106 /min 16 /min 97.8 [degF] 124 mm[Hg] 84 mm[Hg] Piper Chauhan [facility] 3 11:32:05 Date Recorded Body height Body mass index (BMI) Body weight Oxygen saturation Oxygen saturation in Arterial blood by Pulse oximetry Respiratory rate Body temperature Heart rate Systolic blood pressure Diastolic blood pressure Provider Name and Address Organization Details Last Updated DateTime 4 180.34 cm 26.1 kg/m2 77240.7 7 g 99 % 99 % 16 /min 97.5 [degF] 66 /min 134 mm[Hg] 86 mm[Hg] Piper Gissel [place] - [facility] 11:33:35 Social History Question Answer Notes LastModified by Organizat ion Details LastModified Time Tobacco Smoking Status Current Every Day Smoker JULITA [place], [place] - [place] 03/09/2021 11:24:29 Do You Have An Advance Directive? No Information not available 03/09/2021 What Is Your Level Of Alcohol Consumption? Occasional Information not available 11/24/2023 Are You Blind Or Do You Have Difficulty Seeing? Yes Glasses Information not available 03/09/2021 What Is Your Level Of Caffeine Consumption? Heavy Soda, Tea Information not available 10/26/2021 In The 14 Days Before Symptom Onset, Have You Had Close Contact With A Laboratory-confi rmed COVID-19 While That Case Was Ill? Yes Son Tested Positive 11/14/23 Information not available 11/24/2023 In The 14 Days Before Symptom Onset, Have You Had Close Contact With A Person Who Is Under Investigation For COVID-19 While That Person Was Ill? Yes Information not available 11/24/2023 Have You Been To An Area Known To Be High Risk For COVID-19? No Information not available 03/09/2021 Are You Currently Employed? Yes Information not available 11/24/2023 Are You Deaf Or Do You Have Serious Difficulty Hearing? No Information not available 03/09/2021 What Type Of Diet Are You Following? REGULAR Information not available 03/09/2021 What Is Your Occupation? [employer] Information not available 11/24/2023 Are There Any Guns Present In Your Home? No Information not available 03/09/2021 What Was The Date Of Your Most Recent Tobacco Screening? 11/24/2023 Information not available 11/24/2023 How Many Children Do You Have? 2 Information not available 10/26/2021 What Is Your Current Pack Years? 10-19packyear s Information not available 03/09/2021 Do You Use Protection During Sex? No Information not available 03/09/2021 What Is Your Relationship Status? Domestic Partner Information not available 04/27/2021 Do You Use Your Seat Belt Or Car Seat Routinely? Yes Information not available 03/09/2021 Are You Sexually Active? Yes Information not available 03/09/2021 Do You Have Smoke And Carbon Monoxide Detectors In Your Home? Yes Information not available 03/09/2021 At What Age Did You Start Smoking Tobacco? 11 Information not available 03/09/2021 Are You Passively Exposed To Smoke? Yes Information not available 03/09/2021 How Much Tobacco Do You Smoke? 0.5 PPD 1.5 Pack Daily Information not available 11/24/2023 Do You Feel Stressed (tense, Restless, Nervous, Or Anxious, Or Unable To Sleep At Night)? [id number] [email or web address] Information not available 12/07/2022 Do You Use Any Illicit Or Recreational Drugs? Yes Lala [email or web address] Information not available 07/27/2021 Do You Use Sunscreen Routinely? No Information not available 03/09/2021 Has Tobacco Cessation Counseling Been Provided? Yes Information not available 10/26/2021 On What Date Was Tobacco Cessation Counseling Provided? 11/24/2023 Information not available 11/24/2023 How Many Years Have You Smoked Tobacco? 22 11/24/23 Information not available 11/24/2023 Do You Or Have You Ever Used Any Other Forms Of Tobacco Or Nicotine? No Information not available 03/09/2021 Sex: Male Functional Status Question Answer Note LastModified by Organization D etails LastModified Time Are you able to care for yourself? Yes Information n ot available 03/09/2021 What is your exercise level? None Information not available 10/26/2021 Mental Status None recorded. Family History Relationship Description Onset Age of this Age Resolved Age Notes LastModified by Organization Details LastModified Time Mother Depressive disorder trossma Not available 2020 11:21:39 Mother Hypertensive disorder trossma Not available 2020 11:22:12 Mother Disease of liver trossma Not available 2020 11:22:39 Father Malignant tumor of pharynx trossma Not available 2020 11:21:55 Medical History Condition Response Coronary Artery Disease N Other N Atrial Fibrillation N High Blood Pressure N Kidney or Bladder Problems N Thyroid Problems N GI Problems N Depression Y COPD N Blood Clots N Skin Problems N Eating Disorder N Anemia N Heart Attack (DE) N Anxiety Disorder Y Diabetes N Muscle, Joint, or Bone Problems Y Seizures/Epilepsy N Acid Reflux (GERD) N Cancer N Stroke N Asthma N Allergies N ADHD Y Substance Abuse N High Cholesterol N Hepatitis N Liver Disease N Schizophrenia N Headaches Y Osteoporosis N Heart Failure N Immunizations Vaccine Type Date Status Note Provider Nam e and Address Organization Details Recorded Time MMR 4 completed Arleth Patel PAIN MEDICINE PHYSICIAN, ENTERPRISE ACCOUNT MANAGER-C Attn: [employer]ing,[address] [place], [place], [address] [place] [address], [facility] 12/18/2021 15:37:04 IPV 1 completed Arleth Patel PAIN MEDICINE PHYSICIAN, ENTERPRISE ACCOUNT MANAGER-C Attn: Accounting,[address] [place], [place], [address] [place] [address], [facility] 12/18/2021 15:37:04 Hep A, ped/adol, 2 dose 5 completed Arleth Patel PAIN MEDICINE PHYSICIAN, ENTERPRISE ACCOUNT MANAGER-C Attn: Accounting,[address] [place], [place], [address] [place] [address], [facility] 12/18/2021 15:37:04 DTP 4 completed Arleth Patel PAIN MEDICINE PHYSICIAN, ENTERPRISE ACCOUNT MANAGER-C Attn: Accounting,[address] [place], [place], [address] [place] [address], [facility] 12/18/2021 15:37:04 IPV 4 completed Arleth Patel PAIN MEDICINE PHYSICIAN, ENTERPRISE ACCOUNT MANAGER-C Attn: Accounting,[address] [place], [place], [address] [place] [address], [facility] 12/18/2021 15:37:04 IPV 1 completed Arleth Patel, PAIN MEDICINE PHYSICIAN, ENTERPRISE ACCOUNT MANAGER-C Attn: Accounting,[address] [place], [place], [address] [place] [address], [facility] 12/18/2021 15:37:04 IPV 0 completed Arleth Patel, PAIN MEDICINE PHYSICIAN, ENTERPRISE ACCOUNT MANAGER-C Attn: Accounting,[address] [place], [place], [address] [place] [address], [facility] 12/18/2021 15:37:04 Hep B, adolescent or pediatric 7 completed Arleth Patel, PAIN MEDICINE PHYSICIAN, ENTERPRISE ACCOUNT MANAGER-C Attn: Accounting,[address] [place], [place], [address] [place] [address], [facility] 12/18/2021 15:37:04 influenza, whole 6 completed Arleth Patel, PAIN MEDICINE PHYSICIAN, ENTERPRISE ACCOUNT MANAGER-C Attn: Accounting,[address] [place], [place], [address] [place] [address], [facility] 12/18/2021 15:37:04 Hep B, adolescent or pediatric 6 completed Arleth Bassem, PAIN MEDICINE PHYSICIAN, ENTERPRISE ACCOUNT MANAGER-C Attn: Accounting,[address] [place], [place], [address] [place] [address], [facility] 12/18/2021 15:37:04 influenza, unspecified formulation 3 completed Arleth Patel, PAIN MEDICINE PHYSICIAN, ENTERPRISE ACCOUNT MANAGER-C Attn: Accounting,[address] [place], [place], [address] [place] [address], [facility] 12/18/2021 15:37:04 Td (adult), 2 Lf tetanus toxoid, preservative free, adsorbed 1 completed Arleth Patel, PAIN MEDICINE PHYSICIAN, ENTERPRISE ACCOUNT MANAGER-C Attn: Accounting,[address] [place], [place], [address] [place] [address] 12/18/2021 15:37:04 DTP 2 completed Arleth Patel, PAIN MEDICINE PHYSICIAN, ENTERPRISE ACCOUNT MANAGER-C Attn: Accounting,[address] [place], [place], [address] [place] [address], [facility] 12/18/2021 15:37:04 DTP 1 completed Arleth Patel, PAIN MEDICINE PHYSICIAN, ENTERPRISE ACCOUNT MANAGER-C Attn: Accounting,[address] [facility], [place], [place], [address] [place] [address], [facility] 12/18/2021 15:37:04 influenza, unspecified formulation 4 completed Arleth Patel, PAIN MEDICINE PHYSICIAN, ENTERPRISE ACCOUNT MANAGER-C Attn: Accounting,[address] [facility], [place], [place], [address] [place] [address], [facility] 12/18/2021 15:37:05 pneumococcal polysaccharide PPV23 6 completed Arleth Patel, PAIN MEDICINE PHYSICIAN, ENTERPRISE ACCOUNT MANAGER-C Attn: Accounting,[address] [facility], [place], [place], [address] [place] [address], [facility] 12/18/2021 15:37:05 DTP 1 completed Arleth Patel PAIN MEDICINE PHYSICIAN, ENTERPRISE ACCOUNT MANAGER-C Attn: Accounting,[address] [facility], [place], [place], [address] [place] [address], [facility] 12/18/2021 15:37:05 MMR 2 completed Arleth Patel, PAIN MEDICINE PHYSICIAN, ENTERPRISE ACCOUNT MANAGER-C Attn: Accounting,[address] [facility], [place], [place], [address] [place] [address], [facility] 12/18/2021 15:37:05 Hep B, adolescent or pediatric 7 completed Arleth Patel, PAIN MEDICINE PHYSICIAN, ENTERPRISE ACCOUNT MANAGER-C Attn: Accounting,[address] [facility], [place], [place], [address] [place] [address], [facility] 12/18/2021 15:37:05 Hib, unspecified formulation 2 completed Arleth Patel, PAIN MEDICINE PHYSICIAN, ENTERPRISE ACCOUNT MANAGER-C Attn: Accounting,[address] [facility], [place], [place], [address] [place] [address], [facility] 12/18/2021 15:37:05 DTP 0 completed Arleth Patel, PAIN MEDICINE PHYSICIAN, ENTERPRISE ACCOUNT MANAGER-C Attn: Accounting,[address] [facility], [place], [address], [place] [facility] 12/18/2021 15:37:05 Td (adult), 2 Lf tetanus toxoid, preservative free, adsorbed 1 completed Arleth Patel APN, FNP-C Attn: Accounting,[address], [place], [address], [place] [facility] 12/18/2021 15:37:05 COVID-19, mRNA, LNP-S, PF, 100 mcg/0.5mL dose or 50 mcg/0.25mL dose 2 completed Minnie Ortiz [place], [place] [facility] 04/30/2021 12:38:30 COVID-19, mRNA, LNP-S, PF, 100 mcg/0.5mL dose or 50 mcg/0.25mL dose 2 completed Mervat Tanner MA null, [place] - [facility] 05/28/2021 11:26:46 Past Encounters Encounter ID Performer Location Encounter Start Date Encounter Closed Date Diagnosis/Indication Diagnosis SNOMED-CT Code Diagnosis ICD10 Code Diagnosis Note [id number] Arleth Patel APN, FNP-C [facility] (Adult Med) [address] [place] [address] 03/09/2021 10:57:57 03/16/2021 10:37:36 Adult health examination 229989721 Z00.01 Encouraged patient to eat well balanced meals, live active lifestyle and attend routine vision/den gunner apts. Tobacco user 764837380 Z 72.0 Smoking cessation encouraged . Overweight 621395040 E66 .3 advised low fat, low cholestero l diet, regular exercise and weight reduction. Tension-type headache 39 1554484 G44.209 dwp types of headaches and prevention strategy, will try fioricet Low back pain 669510389 M54.50 r/t sleeping in softer bed [id number] Arleth Patel APN, FNP-C [facility] ([facility]ult [facility]) [address] [place] [address] 04/27/2021 11:25:29 04/28/2021 07:16:31 Tension-type headache 916638218 G44.209 dwp types of headaches and prevention strategy, will try fioricet Overweight 508063735 E66 .3 advised low fat, low cholestero l diet, regular exercise and weight reduction. Low back pain 638785556 M54.50 r/t sleeping in softer bed Tobacco user 473978664 Z 72.0 Smoking cessation encouraged . Hyperglycemia 89019033 R 73.9 elevated glucose and triglyceri vandana on [facility] hx of DMa1c 5.8dwp: lab falls into pre diabetic range, need to make diet changes and increase exercise as well;Work on decreasing carbs, white flour, pasta, sugars. Postviral cough 78595881 4 R05.9 rhonchi clearing with cough, start pablo richardson r/b/se [id number] [facility] [address] [facility] [place] [address] 04/30/2021 10:52:19 05/04/2021 07:33:59 Administration of SARS-CoV-2 mRNA vaccine 1966780232 Z23 [id number] [facility] [address] [place] [address] 05/28/2021 10:56:57 05/29/2021 11:43:23 Administration of SARS-CoV-2 mRNA vaccine 5130180882 Z23 [id number] Arleth Patel APN, [facility] [address] [facility] [place] [address] 07/27/2021 15:01:07 07/28/2021 08:38:20 Overweight 859475934 E66.3 advised low fat, low cholestero l diet, regular exercise and weight reduction. Tobacco user 117624151 Z 72.0 Smoking cessation encouraged . Otitis ext emily of right ear 9006374756 932258 H60.91 right canal erythemadw p topical abx, call if not improving [id number] Arleth Patel APN, JOCELYN [facility] (Adult Med) [address] [place] [address] 10/26/2021 11:41:08 10/27/2021 08:08:16 Tension-type headache 042521030 G44.209 dwp types of headaches and prevention strategy, prn fioricet Overweight 519337617 E66 .3 advised low fat, low cholestero l diet, regular exercise and weight reduction. Hyperglycemia 50767543 R 73.9 elevated glucose and triglyceri vandana on [facility] hx of DMa1c 5.8dwp: lab falls into pre diabetic range, need to make diet changes and increase exercise as well;Work on decreasing carbs, white flour, pasta, sugars. Tobacco user 265909486 Z 72.0 Smoking cessation encouraged . Low back pain 610040121 M54.50 r/t sleeping in softer bed [id number] Arleth Patel APN, JOCELYN [facility] (Adult Med) [address] [place] [address] 12/18/2021 14:54:35 12/21/2021 08:10:59 Left lower quadrant pain 227239292 R10.32 ttp, will get labs/ kub Overweight 666949079 E66 .3 advised low fat, low cholestero l diet, regular exercise and weight reduction. Left upper quadrant pain 813838237 R10.12 ttp, will get labs Tobacco user 477905697 Z 72.0 Smoking cessation encouraged . [id number] Arleth Patel APN, FNP-C [facility] (Adult Med) [address] [place] [address] 12/07/2022 11:20:38 12/14/2022 16:01:54 Adult health examination 241157932 Z00.01 Encouraged patient to eat well balanced meals, live active lifestyle and attend routine vision/den gunner apts. Pain of le ft knee joint 4511445725 12592 M25.562 hx of repair with hardware, was swollen and after the swelling went down the pain started;dw p xray and possible referral pending results Smoker 65081640 F17.200 Smoking cessation encouraged . Cough 65016240 R05.9 still has cough, increased with weather change, will refill inhaler and advised pt to get xray that he did not due prior Depression screening 171 714734 Z13.31 depression screening positive-r epeat at followup, pt declines meds or referral at this time Overweight 396982870 E66 .3 advised low fat, low cholestero l diet, regular exercise and weight reduction. [id number] Arleth Patel APN, FNP-C [facility] (Adult Med) [address] [place] [address] 11/24/2023 11:24:12 11/29/2023 10:45:09 Cholelithiasis without obstruction 88573011 K80.[address] at er, will send referral Overweight 520529796 E66 .3 advised low fat, low cholestero l diet, regular exercise and weight reduction. Nausea 595831525 R11.0 prn zofran Smoker 19822474 F17.200 Smoking cessation encouraged . Health Concerns Section Related Observation LastModified by Organization Detai ls LastModified Time None Recorded Concern Status LastModified by Organization Details LastModified Time None Recorded Advance Directives Directive N: Payers Encounter Date Sequence Insurance Name Policy Number Policy Mccormick Covered Member ID Mccormick Member ID Guarantor Name 07/27/2021 1 [facility] (MEDICAID HMO) [id number] Yaya Greyson [id number] Yaya Greyson 10/26/2021 1 [facility] (MEDICAID HMO) [id number] Yaya Greyson [id number] Yaya Greyson 12/18/2021 1 [facility] (MEDICAID HMO) [id number] Yaya Greyson [id number] Yaya Greyson 12/07/2022 1 [facility] (MEDICAID HMO) [id number] Yaya Greyson [id number] Yaya Greyson 11/24/2023 1 [facility] (MEDICAID HMO) [id number] Yaya Greyson [id number] Yaya Greyson Notes Date Note Type Note Provider Name and Address Organization Details Recorded Time 07/27/2021 text/html Here for follow up from flu and pneumonia;has ear pain to right ear now; Arleth Patel APN, FNP-C Attn: Accounting,[address] [facility], [place], [address], [facility] 07/27/2021 15:49:17 10/26/2021 text/html Here for follow up, stress high with baby in NICU, lost job,feels ok, trying to watch his diet Arleth Patel APN, FNP-C Attn: Accounting,[address] [facility], [place], [address], [facility] 10/26/2021 12:23:10 12/18/2021 text/html LLQ pain for 1 week no constipation, no n/v/d, no fever, no known trigger, comes and goes, nothing helped it go away either, went away on own,has home from nicu, new job stressors Arleth Patel APN, FNP-C Attn: Accounting,[address] [facility], [place], [address], [facility] 12/18/2021 15:56:15 12/07/2022 text/html Here for annual exam, pt states normally in the morning he wakes up with SOB and coughing for a month. pt had surgery on left knee in 2006 and has screws- pt c/o pain and swelling for 2 weeks Arleth Patel APN, FNP-C Attn: Accounting,[address] [facility], [place], [address], [facility] 12/07/2022 16:38:55 11/24/2023 text/html went to ER 10/28/23 and was told he has gallstones. ER told him to pass them on his own and f/u with pcp. Since tuesday pt c/o diarrhea and nausea. was also exposed to covid 2 weeks ago but no symptoms Arleth Patel APN, FNP-C Attn: Accounting,[address] [facility], [place], [address], [facility] 11/24/2023 12:01:20
--- OUTSIDE RECORDS SUMMARY | 2024-03-28 06:37 | XMS_ITS | Encounter Summary ---
Author Organization [employer] Care Team Providers Care Senior Net Programmer Name Role Phone Arleth Luevano APRN, CNP Primary Care Provider [phone] Encounter Details Date Type Department Care Team (Latest Contact Info) Description 12/08/2022 Travel Social History Tobacco Use Types Packs/Day Years Used Date Smoking Tobacco: Every Day Cigarettes Smokeless Tobacco: Never Alcohol Use Standard Drinks/Week Comments Not Currently 0 (1 standard drink = 0.6 oz pur e alcohol) AUDIT-C Answer Date Recorded Frequency of Alcohol Consumption Never 02/12/2019 Average Number of Drinks Not on file 019 Frequency of Binge Drinking Not on file 01/20 Sex and Gender Information Value Date Recorded Sex Assigned at Not on file Legal Sex Male 9:32 PM CDT Gender Identity Not on file Sexual Orientation Not on file COVID-19 Exposure Response Date Recorded In the last 10 days, have yo u been in contact with someone who was confirmed or suspected to have Coronavirus/COVID-19? No / Unsure 12/08/2022 10:33 AM CDT documented as of this encounter Plan of Treatment Not on file documented as of this encounter Visit Diagnoses Not on filedocumented in this encounter Care Teams Senior Net Programmer Relationship Specialty Start Date End Date Arleth Luevano APRN, CNP [address] [place] [address] PCP - General Family Medicine 04/16/21 documented as of this encounter
--- OUTSIDE RECORDS SUMMARY | 2024-03-28 06:37 | XMS_ITS | Encounter Summary ---
Author Organization [facility] Address [address] [place] [address] Phone Care Team Providers Care Marine Insurance Claim Examiner Name Role Phone Dasha Mary APRN, NUCLEAR ENGINEERING TECHNICIAN Primary Care Provider Reason for Visit * Reason Onset Date Comments Medication Refill 04/12/2019 Encounter Details Date Type Department Care Team (Late st Contact Info) Description 04/12/2019 Refill [facility] [address] [place] [address] Dasha Mary APRN, NUCLEAR ENGINEERING TECHNICIAN [address] [place] [address] Medication Refill Social History Tobacco Use Types Packs/Day Years [...] on file Sexual Orientation Not on file documented as of this encounter Miscellaneous Notes * Telephone Encounter - Korin Hunt RN - 04/13/2019 2:02 PM CST Notified pharmacist. Voiced understanding. INIA LINE ATTENDANT * Telephone Encounter - Dasha Mary APN, CNP - 04/13/2019 12:26 PM [place] [employer] ATTENDANT Dispense a 7 day supply. [employer]IA LINE ATTENDANT * Telephone Encounter - Tammie Dodson RN - 04/13/2019 10:06 AM [place] [employer] ATTENDANT Pharmacy calling states the insurance will only pay for a 7 day supply without a PA. Pharmacy is asking if PCP would like them to dispense the 7 day supply or does PCP want to try for the PA? Please advise INIA LINE ATTENDANT * Telephone Encounter - Korin Hunt RN - 04/13/2019 10:00 AM [place] LINE ATTENDANT Notified patient. Voiced understanding. States that ortho wants him to get the MRI done first and his insurance has not approved the MRI yet. States that he will see ortho as soon as he gets the MRI done. Just FYI. INIA LINE ATTENDANT * Telephone Encounter - America Cohen RN - 04/13/2019 9:51 AM [place] LINE ATTENDANT Tamia, mother not on PRD, per chart review, no PRD form noted, calling and checking on Drayden prescription. Advised mother to have patient call office. Mother verbalized understanding. INIA LINE ATTENDANT * Telephone Encounter - Dasha Mary APN, CNP - 04/13/2019 8:47 AM [place] LINE ATTENDANT Approved. Please advise patient that he needs to get into an orthopedic as I will not continue to prescribe this medication on a long-term basis. INIA LINE ATTENDANT * Telephone Encounter - Dasha Wick RN - 04/12/2019 3:54 PM [place] LINE ATTENDANT Requested Prescriptions Pending Prescriptions Disp Refills HYDROcodone-acetaminophen (NORCO) 5-325 MG Tablet 90 Tab 0 Sig: Take 1 Tab by mouth every 8 hours as needed for Moderate or more severe pain. Not Delegated - Analgesics: Opioid Agonist Combinations Failed - 04/12/2019 2:56 PM Failed - This refill cannot be delegated Passed - Valid encounter within last 6 months Past Office Visits Recent Outpatient Visits 1 month ago Acute pain of left knee [facility] - Dasha Delcid, [employer], NUCLEAR ENGINEERING TECHNICIAN Upcoming Appointments Future Appointments In 3 weeks Dasha Mary, [employer], NUCLEAR ENGINEERING TECHNICIAN [facility] [address] INIA LINE ATTENDANT * Telephone Encounter - Zoraida Gomez RN - 04/12/2019 2:55 PM [place] LINE ATTENDANT Mother requesting refill on Drayden. Med pended. Pharmacy verified. INIA LINE ATTENDANT documented in this encounter Plan of Treatment Not on file documented as of this encounter Visit Diagnoses Not on filedocumented in this encounter Care Teams Marine Insurance Claim Examiner Relationship Specialty Start Date End Date Dasha Mary APRN, NUCLEAR ENGINEERING TECHNICIAN [address] [place] [id number] PCP - General Advanced Practice Nurse 03/07/19 documented as of this encounter
--- OUTSIDE RECORDS SUMMARY | 2024-03-28 06:37 | XMS_ITS | Encounter Summary ---
Author Organization [facility] Address [address] [place] [address] Phone Care Team Providers Care Hospital Educator Name Role Phone Bassem Arle[address] CNP Primary Care Provider [phone] Reason for Visit * Reason Comments Shoulder Injury Encounter Details Date Type Department Care Team (Late st Contact Info) Description 07/14/2023 10:31 AM CDT - 07/14/2023 11:33 AM CDT Emergency [facility] Emergency [address] [place] [address] Dasha Mancia, PAC [address] [place] [address] Right shoulder strain Discharge Disposition: Discharged to home or Selfcare Social History Tobacco Use Types Packs/Day Years [...] on file documented as of this encounter Last Filed Vital Signs Vital Sign Reading Time Taken Comments Blood Pressure 133/80 07/14/2023 11:15 AM CDT Pulse 65 07/14/2023 11:15 AM CDT Temperature 36 ??C (96.8 ??F) 07/14/2023 10:29 AM CDT Respiratory Rate 13 07/14/2023 10:30 AM CDT Oxygen Saturation 97% 07/14/2023 11:15 AM CDT Inhaled Oxygen Concentration - - Weight 95.3 kg (210 lb) 07/14/2023 10:30 AM CDT Height 180.3 cm (5' 11 ) 07/14/2023 10:30 AM CDT Body Mass Index 29.29 07/14/2023 10:30 AM CDT documented in this encounter Discharge Instructions * Discharge Instructions* Dasha Mancia PAC - 07/14/2023 11:09 AM CDT Please follow up with an orthopedist if your pain persists. Apply ice 20 minutes off and on. Returnfor reevaluation if your symptoms change or worsen. documented in this encounter Medications at Time of Discharge diazePAM (VALIUM PO) Take by mouth. diclofenac (VOLTAREN) 50 MG Tablet Delayed Response Take 1 Tablet by mouth 2 times daily. 30 Tablet 07/14/2023 dicyclomine (BENTYL) 20 MG Tablet Take 1 Tablet by mouth every 6 hours. 30 Tablet 05/04/2021 dicyclomine (BENTYL) 20 MG Tablet Take 1 Tab by mouth every 6 hours. 30 Tab 03/09/2019 divalproex (Depakote) 125 MG Tablet Delayed Response Take 125 mg by mouth 2 times daily. HYDROcodone-aceta minophen (NORCO) 5-325 MG Tablet Take 1 Tab by mouth every 8 hours as needed for Moderate or more severe pain. 90 Tab 04/13/2019 ibuprofen (MOTRIN) 600 MG Tablet Take 1 Tablet by mouth every 6 hours as needed for Moderate or more severe pain or Fever. 60 Tablet 11/20/2020 ibuprofen (MOTRIN) 600 MG Tablet Take 1 Tab by mouth every 8 hours as needed for Moderate or more severe pain. 60 Tab 10/29/2019 ibuprofen (MOTRIN) 600 MG Tablet Take 1 Tab by mouth every 8 hours. 30 Tab 02/12/2019 ondansetron (ZOFRAN) 4 MG Tablet Take 1-2 Tablets by mouth every 8 hours as needed for Nausea - 1st line. 20 Tablet 05/04/2021 ondansetron (ZOFRAN) 4 MG Tablet Take 1 Tab by mouth every 8 hours as needed for Nausea - 1st line. 10 Tab 03/09/2019 predniSONE (DELTASONE) 50 MG Tablet Take 1 Tab by mouth daily. 4 Tab 10/29/2019 SUMAtriptan (Imitrex) 25 MG Tablet Take 1 Tablet by mouth once as needed for Migraine for up to 1 dose. Use as directed. May repeat dose in 2 hours if headache recurs. 9 Tablet 01/26/2021 traMADol (ULTRAM) 50 MG Tablet Take 1 Tab by mouth every 6 hours as needed for Moderate or more severe pain. 15 Tab 02/12/2019 documented as of this encounter ED Notes * Dasha Mancia, PAC - 07/14/2023 10:53 AM CDT Chief Complaint Patient presents with Shoulder Injury HPI Yaya Rubi is a 32 y.o. male who presents from home due to R shoulder pain which has been occurring since yesterday evening. He states that he was jumping on a trampoline when he fell withhis arm raised up and landed on his axillary region. He states that he felt a pop. He reports that today the pain has increased and his experiencing difficulty raising his R arm. He denies a hx of shoulder related problems in the past. He did not take anything for pain prior to arrival. He denies any numbness. He denies any other injury as a result of the fall. PMH includes depression. He states that he takes depakote on a daily basis. His provider is Arleth Luevano. No current facility-administered medications for this encounter. Current Outpatient Medications Medication Sig Dispense Refill diazePAM (VALIUM PO) Take by mouth. diclofenac (VOLTAREN) 50 MG Tablet Delayed Response Take 1 Tablet by mouth 2 times daily. 30 Tablet0 dicyclomine (BENTYL) 20 MG Tablet Take 1 Tablet by mouth every 6 hours. 30 Tablet 0 dicyclomine (BENTYL) 20 MG Tablet Take 1 Tab by mouth every 6 hours. 30 Tab 0 divalproex (Depakote) 125 MG Tablet Delayed Response Take 125 mg by mouth 2 times daily. HYDROcodone-acetaminophen (NORCO) 5-325 MG Tablet Take 1 Tab by mouth every 8 hours as needed for Moderate or more severe pain. 90 Tab 0 ibuprofen (MOTRIN) 600 MG Tablet Take 1 Tablet by mouth every 6 hours as needed for Moderate or more severe pain or Fever. 60 Tablet 0 ibuprofen (MOTRIN) 600 MG Tablet Take 1 Tab by mouth every 8 hours as needed for Moderate or more severe pain. 60 Tab 0 ibuprofen (MOTRIN) 600 MG Tablet Take 1 Tab by mouth every 8 hours. 30 Tab 0 ondansetron (ZOFRAN) 4 MG Tablet Take 1-2 Tablets by mouth every 8 hours as needed for Nausea - 1stline. 20 Tablet 0 ondansetron (ZOFRAN) 4 MG Tablet Take 1 Tab by mouth every 8 hours as needed for Nausea - 1st line.10 Tab 0 predniSONE (DELTASONE) 50 MG Tablet Take 1 Tab by mouth daily. 4 Tab 0 SUMAtriptan (Imitrex) 25 MG Tablet Take 1 Tablet by mouth once as needed for Migraine for up to 1 dose. Use as directed. May repeat dose in 2 hours if headache recurs. 9 Tablet 0 traMADol (ULTRAM) 50 MG Tablet Take 1 Tab by mouth every 6 hours as needed for Moderate or more severe pain. (Patient not taking: Reported on 03/07/2019) 15 Tab 0 Allergies Allergen Reactions Penicillins Hives History reviewed. No pertinent past medical history. Past Surgical History: Procedure Laterality Date KNEE SURGERY TONSILLECTOMY Social History Socioeconomic History Marital status: Single Spouse name: Not on file Number of children: Not on file Years of education: Not on file Highest education level: Not on file Occupational History Not on file Tobacco Use Smoking status: Every Day Packs/day: 1 Types: Cigarettes Smokeless tobacco: Never Vaping Use Vaping Use: Some days Substance and Sexual Activity Alcohol use: Not Currently Drug use: Yes Types: Marijuana Sexual activity: Not on file Other Topics Concern Not on file Social History Narrative Not on file Social Determinants of Health Financial Resource Needs: Not on file Food Insecurity Needs: Not on file Transportation Needs: Not on file Physical Activity: Not on file Stress: Not on file Social Integration: Not on file Intimate Partner Violence: Not on file Housing Stability: Not on file BP 151/87 Pulse 83 Temp 96.8 ??F (36 ??C) (Tympanic) Resp 13 Ht 5' 11 (1.803 m) Wt 210 lb (95.3 kg) SpO2 100% BMI 29.29 kg/m?? Review of Systems Constitutional: Negative for chills and fever. HENT: Negative for congestion, ear pain, rhinorrhea and sore throat. Eyes: Negative for discharge. Respiratory: Negative for cough, chest tightness, shortness of breath and wheezing. Cardiovascular: Negative for chest pain and palpitations. Gastrointestinal: Negative for abdominal pain, diarrhea, nausea and vomiting. Genitourinary: Negative for flank pain and testicular pain. Musculoskeletal: Positive for arthralgias (R shoulder pain). Negative for back pain and myalgias. Skin: Negative for rash and wound. Neurological: Negative for syncope and headaches. All other systems reviewed and are negative. Physical Exam Vitals and nursing note reviewed. Constitutional: General: He is not in acute distress. Appearance: He is well-developed. HENT: Head: Normocephalic and atraumatic. Right Ear: External ear normal. Left Ear: External ear normal. Nose: Nose normal. Eyes: Conjunctiva/sclera: Conjunctivae normal. Cardiovascular: Rate and Rhythm: Normal rate and regular rhythm. Heart sounds: Normal heart sounds. Pulmonary: Effort: Pulmonary effort is normal. Breath sounds: Normal breath sounds. Abdominal: General: There is no distension. Palpations: Abdomen is soft. Tenderness: There is no abdominal tenderness. Musculoskeletal: General: Tenderness (tenderness to R posterior shoulder with limited abduction. Radial pulse intact. No edema, contusion, or deformity. Radial pulse intact.) present. Normal range of motion. Cervical back: Normal range of motion and neck supple. Skin: General: Skin is warm and dry. Neurological: Mental Status: He is alert and oriented to person, place, and time. Cranial Nerves: No cranial nerve deficit. Psychiatric: Behavior: Behavior normal. Labs Reviewed - No data to display XR SHOULDER COMPLETE RIGHT Final Result IMPRESSION: 1. No acute osseous abnormality. Procedures Sling applied to R upper extremity by prosthetics lab technician. Pre and post application neurovascular intact. No results found for this or any previous visit (from the past 24 hour(s)). Imaging Results XR SHOULDER COMPLETE RIGHT (Final result) Result time 07/14/23 11:07:26 Final result by Ramón Cordova MD (07/14/23 11:07:26) Impression: IMPRESSION: 1. No acute osseous abnormality. Narrative: EXAM DESCRIPTION: XR SHOULDER COMPLETE RIGHT REASON FOR STUDY: R shoulder pain after patient had a fall while jumping on the trampoline with his kids last night TECHNIQUE: 5 view(s) of the right shoulder COMPARISON: 12/08/2022 FINDINGS: The alignment is normal. There is no fracture. The glenohumeral and acromioclavicular joint spaces are normal. The coracoclavicular interval is normal. No focal bone lesions. Normal bone mineralization. THIS IS AN ELECTRONICALLY VERIFIED FINAL REPORT 07/14/2023 11:04 AM - Electronically signed by Ramón Cordova M.D. AT: AT Report ID: [id number] Reading Location: [place] [address] Medical Decision Making Clinical Impression 1. Right shoulder strain Disposition: Discharge Encouraged rest, ice, elevation, NSAID, and close f/u with an orthopedist if pain persists. Patientexpressed understanding and agreement to the tx plan. Discussed with patient that he may need an MRI if pain persists. Cosigned by Jose Patiño DO at 07/14/2023 4:55 PM CDT * Angelita Garibay RN - 07/14/2023 10:30 AM CDT Patient ambulatory to triage with c/o right shoulder injury. Reports he was jumping on the trampoline with his kids last night when he fell landing on his shoulder. Reports hearing a pop. States painis worse upon waking up this morning and he can't lift his arm up. Denies any other complaints at this time. documented in this encounter Miscellaneous Notes * PatientPass Patient Instructions - Dasha Mancia PAC - 07/14/2023 11:09 AM CDT Images from the original note were not included. Patient Education Table of Contents Muscle Strain To view videos and all your education online visit, [email or web address] or scan this QR code with your smartphone. Access to this content will in one year. Muscle Strain A muscle strain, or pulled muscle, happens when a muscle is stretched beyond its normal length. This can tear some muscle fibers and cause pain. Usually, it takes 1?2 weeks to heal from a muscle strain. Full healing normally takes 5?6 weeks. What are the causes? This condition is caused when a sudden force is placed on a muscle and stretches it too far. This can happen with a fall, while lifting, or during sports. What increases the risk? You are more likely to develop a muscle strain if you are an athlete or you do a lot of physical activity. What are the signs or symptoms? Pain. Tenderness. Bruising. Swelling. Trouble using the muscle. How is this treated? This condition is first treated with MELO therapy. This involves: Protecting your muscle from being injured again. Resting your injured muscle. Icing your injured muscle. Putting pressure (compression) on your injured muscle. This may be done with a splint or elastic bandage. Raising (elevating) your injured muscle. Your doctor may also recommend medicine for pain. Follow these instructions at home: If you have a splint that can be taken off: Wear the splint as told by your doctor. Take it off only as told by your doctor. Check the skin around the splint every day. Tell your doctor if you see problems. Loosen the splint if your fingers or toes: ? Tingle. ? Become numb. ? Turn cold and blue. Keep the splint clean. If the splint is not waterproof: ? Do not let it get wet. ? Cover it with a watertight covering when you take a bath or a shower. Managing pain, stiffness, and swelling If told, put ice on your injured area. To do this: ? If you have a removable splint, take it off as told by your doctor. ? Put ice in a plastic bag. ? Place a towel between your skin and the bag. ? Leave the ice on for 20 minutes, 2?3 times a day. ? Take off the ice if your skin turns bright red. This is very important. If you cannot feel pain, heat, or cold, you have a greater risk of damage to the area. Move your fingers or toes often. Raise the injured area above the level of your heart while you are sitting or lying down. Wear an elastic bandage as told by your doctor. Make sure it is not too tight. General instructions Take [id number]-[id number]-[id number] and prescription medicines only as told by your doctor. This may include: ? Medicines for pain and swelling that are taken by mouth or put on the skin. ? Medicines to help relax your muscles. Limit your activity. Rest your injured muscle as told by your doctor. Your doctor may say that gentle movements are okay. If physical therapy was prescribed, do exercises as told by your doctor. Do not put pressure on any part of the splint until it is fully hardened. This may take many hours. Do not smoke or use any products that contain nicotine or tobacco. If you need help quitting, ask your doctor. Ask your doctor when it is safe to drive if you have a splint. Keep all follow-up visits. How is this prevented? Warm up before you exercise. This helps to prevent more muscle strains. Contact a doctor if: You have more pain or swelling in the injured area. Get help right away if: You have any of these problems in your injured area: ? Numbness. ? Tingling. ? Less strength than normal. Summary A muscle strain is an injury that happens when a muscle is stretched beyond normal length. This condition is first treated with MELO therapy. This includes protecting, resting, icing, adding pressure, and raising your injury. Limit your activity. Rest your injured muscle as told by your doctor. Your doctor may say that gentle movements are okay. Warm up before you exercise. This helps to prevent more muscle strains. This information is not intended to replace advice given to you by your health care provider. Make sure you discuss any questions you have with your health care provider. Document Released: 2008-12-14 Document Updated: 2021-05-25 Document Reviewed: 2021-05-25 [employer] Patient Education ? 2023 [employer] documented in this encounter Plan of Treatment Not on file documented as of this encounter Procedures Procedure Name Priority Date/Time Associated Diagnosis Comments XR SHOULDER COMPLETE RIGHT STAT 07/14/2023 10:52 AM CDT documented in this encounter Results * XR SHOULDER COMPLETE RIGHT (07/14/2023 10:52 AM CDT) Anatomical Region Laterality Modality UPPER EXTREMITY, shoulder Right Digita l Radiography 07/14/2023 11:0 4 AM CDT Impressions 07/14/2023 11:07 AM CDT IMPRESSION: 1. ??No acute osseous abnormality. Narrative 07/14/2023 11:07 AM CDT EXAM DESCRIPTION: XR SHOULDER COMPLETE RIGHT REASON FOR STUDY: R shoulder pain after patient had a fall while jumping on the trampoline with his kids last night ?? TECHNIQUE: 5 view(s) of the ??right shoulder COMPARISON: 12/08/2022 FINDINGS: The alignment is normal. ??There is no fracture. ??The glenohumeral and acromioclavicular joint spaces are normal. ??The coracoclavicular interval is normal. ??No focal bone lesions. ??Normal bone mineralization. THIS IS AN ELECTRONICALLY VERIFIED FINAL REPORT 07/14/2023 11:04 AM - Electronically signed by ??Ramón Cordova M.D. AT: AT D: ??07/14/2023 11:04 AM T: ??07/14/2023 11:04 AM Report ID: [id number] Reading Location: ??[id number] Procedure Note Ramón Cordova MD - 07/14/2023 EXAM DESCRIPTION: XR SHOULDER COMPLETE RIGHT REASON FOR STUDY: R shoulder pain after patient had a fall while jumping on the trampoline with his kids last night TECHNIQUE: 5 view(s) of the right shoulder COMPARISON: 12/08/2022 FINDINGS: The alignment is normal. There is no fracture. The glenohumeral and acromioclavicular joint spaces are normal. The coracoclavicular interval is normal. No focal bone lesions. Normal bone mineralization. THIS IS AN ELECTRONICALLY VERIFIED FINAL REPORT 07/14/2023 11:04 AM - Electronically signed by Ramón Cordova M.D. AT: AT Report ID: [id number] Reading Location: [id number] IMPRESSION: 1. No acute osseous abnormality. us Dasha Guerrero Page PAC IMG DIAGNOSTIC ORDERABLES Fi nal Result documented in this encounter Visit Diagnoses Diagnosis Right shoulder strain- Primary Sprain and strain of unspecified site of shoulder and upper arm documented in this encounter Administered Medications Inactive Administered Medications - up to 3 most recent administrations Medication Order MAR Action Action Date Dose Rate Site traMADol (ULTRAM) tablet 50 mg 50 mg, Oral, ONCE, 1 dose, On Yael 07/14/23 at 1100 Given 07/14/2023 11:04 AM CDT 50 mg documented in this encounter Active and Recently Administered Medications Times are shown in CDT. Scheduled Medication Order 07/12/2023 07/13/2023 07/14/2023 traMADol (ULTRAM) tablet 50 mg (COMPLETED) 50 mg, Oral, ONCE, 1 dose, On Yael 07/14/23 at 1100 1104 (Given - Provid er: Madison Benavides RN) documented in this encounter Care Teams Hospital Educator Relationship Specialty Start Date End Date Arleth Luevano APRN, CNP [address] [place] [address] PCP - General Family Medicine 04/16/21 documented as of this encounter
--- OUTSIDE RECORDS SUMMARY | 2024-03-28 06:37 | XMS_ITS | Encounter Summary ---
Author Organization [facility] Address [address] [place] [address] Phone Care Team Providers Care Nanotechnician Name Role Phone Dasha Mary APRN, CHELA Primary Care Provider Reason for Visit * Reason Comments Headache Encounter Details Date Type Department Care Team ([facility] st Contact Info) Description 01/26/2021 8:08 AM MECHANICAL COMMISSIONING ENGINEER - 01/26/2021 10:53 AM MECHANICAL COMMISSIONING ENGINEER Emergency [facility] Emergency [address] [place] [address] Trevor Shah MD [address] [place] [address] Migraine without aura and without status migrainosus, not intractable Discharge Disposition: Discharged to home or Selfcare [...] Exposure Response Date Recorded In the last month, have you been in contact with someone who was confirmed or suspected to have Coronavirus / COVID-19? No / Unsure 01/26/2021 8:05 AM MECHANICAL COMMISSIONING ENGINEER documented as of this encounter Last Filed Vital Signs Vital Sign Reading Time Taken Comments Blood Pressure 120/72 01/26/2021 10:51 AM MECHANICAL COMMISSIONING ENGINEER Pulse 61 01/26/2021 10:51 AM MECHANICAL COMMISSIONING ENGINEER Temperature 36.7 ??C (98.1 ??F) 01/26/2021 8:05 AM CS T Respiratory Rate 16 01/26/2021 10:51 AM MECHANICAL COMMISSIONING ENGINEER Oxygen Saturation 97% 01/26/2021 10:51 AM MECHANICAL COMMISSIONING ENGINEER Inhaled Oxygen Concentration - - Weight 93 kg (205 lb) 01/26/2021 8:05 AM MECHANICAL COMMISSIONING ENGINEER Height 180.3 cm (5' 11 ) 01/26/2021 8:05 AM MECHANICAL COMMISSIONING ENGINEER Body Mass Index 28.59 01/26/2021 8:05 AM MECHANICAL COMMISSIONING ENGINEER documented in this encounter Discharge Instructions * Attachments The following attachments cannot be sent through Care Everywhere. * Headache, Migraine: Stages and Treatment ([place]) documented in this encounter Medications at Time of Discharge diazePAM (VALIUM PO) Take by mouth. dicyclomine (BENTYL) 20 MG Tablet Take 1 [...] 02/12/2019 ondansetron (ZOFRAN) 4 MG Tablet Take 1 [...] as of this encounter ED Notes * Estefany Rojas RN - 01/26/2021 10:52 AM CST Patient discharged. Discharge instructions and patient educational material reviewed with patient; questions and concerns addressed; patient verbalizes understanding, using teach back. Patient was given 1 prescription. Patient ambulated to exit with steady gait. ANICAL COMMISSIONING ENGINEER * Estefany Rojas RN - 01/26/2021 10:00 AM CST Patient resting on stretcher. Patient denies pain after medication. Patient updated on status in ER. Call light within reach. ANICAL COMMISSIONING ENGINEER * Estefany Rojas RN - 01/26/2021 9:03 AM CST Patient medicated per provider orders. Patient educated on intended effects and side effects of medication and verbalized understanding, able to provide teach back of education. Call light within reach. ANICAL COMMISSIONING ENGINEER * Trevor Shah MD - 01/26/2021 8:57 AM CST Chief Complaint Patient presents with ??? Headache Patient presents with a complaint of a headache. He states that for the last 4 days she has had a right-sided headache, localized initially around his right eye then radiating into the right occipital area. He describes the pain as achy, 8/10 intensity, radiating as described. Patient also reports photophobia, no other aggravating factors. He denies any nausea, vomiting, numbness, tingling, vision changes or any other complaints. Patient states that he has a history of migraines but this 1 is just not going away although this does feel similar. He has tried ibuprofen without any relief. No other complaints currently. No current facility-administered medications for this encounter. Current Outpatient Medications Medication Sig Dispense Refill ??? diazePAM (VALIUM PO) Take by mouth. ??? dicyclomine (BENTYL) 20 MG Tablet Take 1 Tab by mouth every 6 hours. 30 Tab 0 ??? divalproex (Depakote) 125 MG Tablet Delayed Response Take 125 mg by mouth 2 times daily. ??? HYDROcodone-acetaminophen (NORCO) 5-325 MG Tablet Take 1 Tab by mouth every 8 hours as needed for Moderate or more severe pain. 90 Tab 0 ??? ibuprofen (MOTRIN) 600 MG Tablet Take 1 Tablet by mouth every 6 hours as needed for Moderate ormore severe pain or Fever. 60 Tablet 0 ??? ibuprofen (MOTRIN) 600 MG Tablet Take 1 Tab by mouth every 8 hours as needed for Moderate or more severe pain. 60 Tab 0 ??? ibuprofen (MOTRIN) 600 MG Tablet Take 1 Tab by mouth every 8 hours. 30 Tab 0 ??? ondansetron (ZOFRAN) 4 MG Tablet Take 1 Tab by mouth every 8 hours as needed for Nausea - 1st line. 10 Tab 0 ??? predniSONE (DELTASONE) 50 MG Tablet Take 1 Tab by mouth daily. 4 Tab 0 ??? SUMAtriptan (Imitrex) 25 MG Tablet Take 1 Tablet by mouth once as needed for Migraine for up to1 dose. Use as directed. May repeat dose in 2 hours if headache recurs. 9 Tablet 0 ??? traMADol (ULTRAM) 50 MG Tablet Take 1 Tab by mouth every 6 hours as needed for Moderate or moresevere pain. (Patient not taking: Reported on 03/07/2019) 15 Tab 0 Allergies Allergen Reactions ??? Penicillins Hives History reviewed. No pertinent past medical history. Past Surgical History: Procedure Laterality Date ??? KNEE SURGERY Social History Socioeconomic History ??? Marital status: Single Spouse name: Not on file ??? Number of children: Not on file ??? Years of education: Not on file ??? Highest education level: Not on file Occupational History ??? Not on file Tobacco Use ??? Smoking status: Current Every Day Smoker Packs/day: 1.00 Types: Cigarettes ??? Smokeless tobacco: Never Used Vaping Use ??? Vaping Use: Some days Substance and Sexual Activity ??? Alcohol use: Not Currently ??? Drug use: Not Currently ??? Sexual activity: Not on file Other Topics Concern ??? Not on file Social History Narrative ??? Not on file Social Determinants of Health Social determinant risk not applicable to this patient. BP 134/80 Pulse 88 Temp 98.1 ??F (36.7 ??C) (Tympanic) Resp 16 Ht 5' 11 (1.803 m) Wt 205lb (93 kg) SpO2 97% BMI 28.59 kg/m?? Review of Systems Constitutional: Negative. HENT: Negative. Gastrointestinal: Negative. Neurological: Positive for headaches. Negative for dizziness, tremors, seizures, syncope, facial asymmetry, speech difficulty, weakness and numbness. All other systems reviewed and are negative. Physical Exam Vitals and nursing note reviewed. Constitutional: General: He is not in acute distress. Appearance: He is well-developed. He is not diaphoretic. HENT: Head: Normocephalic and atraumatic. Right Ear: External ear normal. Left Ear: External ear normal. Eyes: General: No scleral icterus. Extraocular Movements: Extraocular movements intact. Conjunctiva/sclera: Conjunctivae normal. Pupils: Pupils are equal, round, and reactive to light. Neck: Trachea: No tracheal deviation. Cardiovascular: Rate and Rhythm: Normal rate and regular rhythm. Heart sounds: Normal heart sounds. No murmur heard. Pulmonary: Effort: Pulmonary effort is normal. No respiratory distress. Breath sounds: Normal breath sounds. No wheezing or rales. Abdominal: General: There is no distension. Tenderness: There is no abdominal tenderness. There is no guarding or rebound. Musculoskeletal: General: Normal range of motion. Cervical back: Normal range of motion and neck supple. Skin: General: Skin is warm and dry. Neurological: Mental Status: He is alert and oriented to person, place, and time. Cranial Nerves: No cranial nerve deficit. Motor: No weakness. Coordination: Coordination normal. Procedures Imaging Results None MDM Number of Diagnoses or Management Options Risk of Complications, Morbidity, and/or Mortality Presenting problems: moderate Coding Clinical Impression 1. Migraine without aura and without status migrainosus, not intractable ED Course as of Jan 26 1007TueJan 26, 2021 1005 Patient reports that his headache is resolved. Will be discharged home. [DK] ED Course User Index [DK] Trevor Shah MD ANICAL COMMISSIONING ENGINEER * Estefany Rojas RN - 01/26/2021 8:07 AM CST Patient ambulatory to triage with c/o headache with light sensitivity starting 4 days ago. Patient denies history of migraines. Denies injury. Patient reports taking Ibuprofen at home without relief.Patient alert and oriented x 4. ANICAL COMMISSIONING ENGINEER documented in this encounter Plan of Treatment Not on file documented as of this encounter Visit Diagnoses Diagnosis Migraine without aura and without status migrainosus, not intractable- Primary Migraine without aura, without mention of intractable migraine without mention of status migrainosus documented in this encounter Administered Medications Inactive Administered Medications - up to 3 most recent administrations Medication Order MAR Action Action Date Dose Rate Site diphenhydrAMINE (BENADRYL) injection 25 mg 25 mg, Intravenous, ONCE, 1 dose, On Tue01/26/21 at 0900 Given 01/26/2021 9:02 AM MECHANICAL COMMISSIONING ENGINEER 25 mg ketorolac (TORADOL) injection 15 mg 15 mg, Intravenous, ONCE, 1 dose, On Tue01/26/21 at 0900 Given 01/26/2021 9:02 AM MECHANICAL COMMISSIONING ENGINEER 15 mg metoclopramide (REGLAN) injection 10 mg 10 mg, Intravenous, ONCE, 1 dose, On Tue01/26/21 at 0900 Given 01/26/2021 9:02 AM MECHANICAL COMMISSIONING ENGINEER 10 mg documented in this encounter Active and Recently Administered Medications Due to Daylight Saving Time, this section may contain times in both CDT and MECHANICAL COMMISSIONING ENGINEER. Scheduled Medication Order 01/24/2021 01/25/2021 01/26/2021 diphenhydrAMINE (BENADRYL) injection 25 mg (COMPLETED) 25 mg, Intravenous, ONCE, 1 dose, On Tue01/26/21 at 0900 0902 (Given - Provid er: Estefany Rojas RN) ketorolac (TORADOL) injection 15 mg (COMPLETED) 15 mg, Intravenous, ONCE, 1 dose, On Tue01/26/21 at 0900 0902 (Given - Provid er: Estefany Rojas RN) metoclopramide (REGLAN) injection 10 mg (COMPLETED) 10 mg, Intravenous, ONCE, 1 dose, On Tue01/26/21 at 0900 0902 (Given - Provid er: Estefany Rojas RN) documented in this encounter Care Teams Nanotechnician Relationship Specialty Start Date End Date Dasha Mary, RECOVERY ANALYST, MATERIAL HANDLING CREW SUPERVISOR [address] [place] [address] PCP - General Advanced Practice Nurse 03/07/19 documented as of this encounter
--- OUTSIDE RECORDS SUMMARY | 2024-03-28 06:37 | XMS_ITS ---
Author Organization [facility] Address [address] [place] [address] Care Team Providers Care Teletype Clerk Name Role Phone Reyes Colon Primary Care Provider Melisa Mejia Unavailable [phone] REASON FOR VISIT new eval Encounters Encounter Location Date Provider Diagnosis [address] [place] [address] 12/13/2022 Melisa Mejia Plan Of Treatment No Information Progress Notes * Yaya RUBIDOB:[birth year] (32 yo M)Acc No.[id number]:12/13/2022 Patient:?Yaya Rubi :1990???Age:32 Y???Sex:Male Address:[address] [place], [address] * true * Date:? Generated for Nicole arauz/Calderon/eTransmitting on:?03/28/2024 06:36 AM PRESS FEEDER BROOMCORN
--- OUTSIDE RECORDS SUMMARY | 2024-03-28 06:37 | XMS_ITS | Encounter Summary ---
Author Organization [facility] Care Team Providers Care Jailer Chief Name Role Phone Arleth Luevano APRN, CNP Primary Care Provider [phone] Encounter Details Date Type Department Care Team (Latest Contact Info) Description 10/28/2023 Travel Social History Tobacco Use Types Packs/Day [...] on file documented as of this encounter Plan of Treatment Not on file documented as of this encounter Visit Diagnoses Not on filedocumented in this encounter Care Teams Jailer Chief Relationship Specialty Start Date End Date Arleth Luevano APRN, CNP [address] [place] [address] PCP - General Family Medicine 04/16/21 documented as of this encounter
--- OUTSIDE RECORDS SUMMARY | 2024-03-28 06:37 | XMS_ITS ---
Author Organization [facility] Address [address] [place] [address] Care Team Providers Care Ship Pilot Name Role Phone Reyes Colon Primary Care Provider [phone] Melisa Mejia Unavailable [phone] REASON FOR VISIT 1 Month Psych F/U & Med Refill Encounters Encounter Location Date Provider Diagnosis [address] [place] [address] 01/12/2023 Melisa Mejia Plan Of Treatment No Information Progress Notes * Yaya RUBIDOB:[birth year] (33 yo M)Acc No.[id number]:01/12/2023 UNLOCKED PROGRESS NOTE Patient:?Yaya RUBI Provider:?Melisa Mejia, MONA, SEED TECHNICIAN-BC, PMHNP-BC :1990???Age:32 Y???Sex:Male Jose F e:01/12/2023 [address]:[facility] [place]note 2[address] [facility] Pcp:Reyes Colon Subjective: * Chief Complaints: * ???1. 1 Month Psych F/U & Me d Refill. * Medical History:? Objective: * Vitals:? Assessment: Plan: * Treatment: * * Electronic signature of Melisa Mejia , [id number] on 03/28/2024 at 06:36 AM MANAGER BALANCE Sign off status: Pending * Provider:?Deacon Fernández, SEED TECHNICIAN-BC, PMHNP-BC Date:?01/12/2023 Generated for Nicole arauz/Calderon/Anne Marieitting on:?03/28/2024 06:36 AM MANAGER BALANCE
--- OUTSIDE RECORDS SUMMARY | 2024-03-28 06:37 | XMS_ITS | Encounter Summary ---
Author Organization [facility] Address [address] [place] [address] Phone Care Team Providers Care Sole Tier Name Role Phone Dasha Mary APRN, CHELA Primary Care Provider Reason for Visit * Reason Comments Eye Pain Encounter Details Date Type Department Care Team (Late st Contact Info) Description 11/20/2020 8:03 AM CDT - 11/20/2020 8:42 AM CDT Emergency [facility] Emergency [address] [place] [address] Rudy Trevino MD Periorbital cellulitis of left eye Discharge Disposition: Discharged to home or Selfcare [...] have Coronavirus / COVID-19? No / Unsure 11/20/2020 8:02 AM CDT documented as of this encounter Last Filed Vital Signs Vital Sign Reading Time Taken Comments Blood Pressure 124/94 11/20/2020 8:01 AM CDT Pulse 89 11/20/2020 8:01 AM CDT Temperature 36.2 ??C (97.1 ??F) 11/20/2020 8:01 AM CD T Respiratory Rate 18 11/20/2020 8:01 AM CDT Oxygen Saturation 99% 11/20/2020 8:01 AM CDT Inhaled Oxygen Concentration - - Weight 88.5 kg (195 lb) 11/20/2020 8:01 AM CDT Height 180.3 cm (5' 11 ) 11/20/2020 8:01 AM CDT Body Mass Index 27.2 11/20/2020 8:01 AM CDT documented in this encounter Discharge Instructions * Attachments The following attachments cannot be sent through Care Everywhere. * Periorbital Cellulitis ([place] Islander) documented in this encounter Medications at Time of Discharge dicyclomine (BENTYL) 20 MG Tablet Take 1 Tab by mouth every 6 hours. 30 Tab 03/09/2019 divalproex (Depakote) 125 MG Tablet Delayed Response Take 125 mg by mouth 2 times daily. HYDROcodone-acet aminophen (NORCO) 5-325 MG Tablet Take 1 Tab [...] Tab by mouth daily. 4 Tab 10/29/2019 traMADol (ULTRAM) 50 MG Tablet Take 1 Tab by mouth every 6 hours as needed for Moderate or more severe pain. 15 Tab 02/12/2019 doxycycline hyclate (VIBRAMYCIN) 100 MG Capsule Take 1 Capsule by mouth 2 times daily for 10 days. 20 Capsule 11/20/2020 11/30/2020 sulfamethoxazole -trimethoprim DS (Bactrim DS) 800-160 MG Tablet Take 1 Tablet by mouth 2 times daily for 10 days. 20 Tablet 11/20/2020 11/30/2020 documented as of this encounter ED Notes * Rocio Hoover RN - 11/20/2020 8:42 AM CDT Patient discharged. Discharge instructions and patient educational material reviewed with patient; questions and concerns addressed; patient verbalizes understanding, using teach back. Patient was given 3 prescriptions. Patient was informed no drinking alcohol, driving or operating heavy machinery while taking narcotics or muscle relaxants. Patient discharged per ambulatory mode. * Rocio Hoover RN - 11/20/2020 8:37 AM CDT Pt medicated per provider orders. Pt educated on intended effects and side effects of medication and verbalized understanding, able to provide teach back of education. * Rudy Trevino MD - 11/20/2020 8:18 AM CDT Chief Complaint Patient presents with ??? Eye Pain The patient is a he 30-year-old male who presents to the emergency department with complaints of left eye discomfort with redness beginning yesterday. This a.m. he woke and noted that there was some associated swelling. He tried to use some stye medication but this is ineffective. The patient has asignificant allergy to penicillins and that he developed hives and swelling in his throat. He denies fevers or chills. He states that the pain is moderate severity. He does not use contact lenses does not recall any ocular trauma Current Facility-Administered Medications Medication Dose Route Frequency Provider Last Rate Last Admin ??? doxycycline hyclate (VIBRA-TABS) tablet 100 mg 100 mg Oral Once Rudy Trevino MD ??? ibuprofen (MOTRIN) tablet 600 mg 600 mg Oral Once Rudy Trevino MD ??? sulfamethoxazole-trimethoprim DS (BACTRIM DS, SEPTRA DS) 800-160 MG per tablet 1 Tablet 1 Tablet Oral Once Rudy Trevino MD Current Outpatient Medications Medication Sig Dispense Refill ??? dicyclomine (BENTYL) 20 MG Tablet Take 1 Tab by mouth every 6 hours. 30 Tab 0 ??? divalproex (Depakote) 125 MG Tablet Delayed Response Take 125 mg by mouth 2 times daily. ??? doxycycline hyclate (VIBRAMYCIN) 100 MG Capsule Take 1 Capsule by mouth 2 times daily for 10 days. 20 Capsule 0 ??? HYDROcodone-acetaminophen (NORCO) 5-325 MG Tablet Take [...] by mouth daily. 4 Tab 0 ??? sulfamethoxazole-trimethoprim DS (Bactrim DS) 800-160 MG Tablet Take 1 Tablet by mouth 2 times daily for 10 days. 20 Tablet 0 ??? traMADol (ULTRAM) 50 MG [...] risk not applicable to this patient. BP (!) 124/94 Pulse 89 Temp 97.1 ??F (36.2 ??C) (Tympanic) Resp 18 Ht 5' 11 (1.803 m) Wt195 lb (88.5 kg) SpO2 99% BMI 27.20 kg/m?? Review of Systems Constitutional: Negative. HENT: Negative. Eyes: Positive for photophobia, pain, redness and visual disturbance. Cardiovascular: Negative. Gastrointestinal: Negative. Genitourinary: Negative. Musculoskeletal: Negative. Neurological: Negative. All other systems reviewed and are negative. Physical Exam Vitals and nursing note reviewed. Constitutional: General: He is not in acute distress. Appearance: Normal appearance. HENT: Head: Normocephalic and atraumatic. Right Ear: External ear normal. Left Ear: External ear normal. Nose: Nose normal. Mouth/Throat: Mouth: Mucous membranes are moist. Eyes: General: Right eye: No discharge. Left eye: No discharge. Extraocular Movements: Extraocular movements intact. Conjunctiva/sclera: Conjunctivae normal. Pupils: Pupils are equal, round, and reactive to light. Comments: Periorbital swelling most prominent in the lower medial lid Cardiovascular: Rate and Rhythm: Normal rate and regular rhythm. Heart sounds: Normal heart sounds. No murmur heard. Pulmonary: Effort: Pulmonary effort is normal. Breath sounds: Normal breath sounds. No wheezing or rales. Abdominal: Palpations: Abdomen is soft. Tenderness: There is no abdominal tenderness. There is no guarding. Musculoskeletal: General: Normal range of motion. Cervical back: Normal range of motion and neck supple. Right lower leg: No edema. Left lower leg: No edema. Skin: General: Skin is warm and dry. Neurological: General: No focal deficit present. Mental Status: He is oriented to person, place, and time. Mental status is at baseline. Psychiatric: Mood and Affect: Mood normal. Behavior: Behavior normal. Procedures Imaging Results None MDM Number of Diagnoses or Management Options Periorbital cellulitis of left eye: new, needed workup Diagnosis management comments: Differential diagnostic considerations include conjunctivitis, allergic reaction, preseptal or postseptal cellulitis or ocular trauma to name a few. Amount and/or Complexity of Data Reviewed Decide to obtain previous medical records or to obtain history from someone other than the patient:yes Review and summarize past medical records: yes Risk of Complications, Morbidity, and/or Mortality Presenting problems: low Diagnostic procedures: minimal Management options: low General comments: History of significant beta-lactam allergy complicates this antibiotic choices. We will use Bactrim and doxycycline. Coding Clinical Impression 1. Periorbital cellulitis of left eye The patient remained stable throughout their ED stay. My clinical impression was discussed with thepatient. I gave him the opportunity to ask questions, and addressed them as completely as possible given the information available at present. The therapeutic plan was discussed, instructions were given and the importance of primary care follow up was stressed and encouraged. The patient voiced understanding of the plan, indications to return, and the need for follow up. * Estefany Rojas RN - 11/20/2020 8:03 AM CDT Patient ambulatory to triage with c/o left eye pain and redness starting yesterday. Patient denies injury. Patient reports swelling starting this morning. Denies drainage. documented in this encounter Plan of Treatment Not on file documented as of this encounter Visit Diagnoses Diagnosis Periorbital cellulitis of left eye- Primary documented in this encounter Administered Medications Inactive Administered Medications - up to 3 most recent administrations Medication Order MAR Action Action Date Dose Rate Site doxycycline hyclate (VIBRA-TABS) tablet 100 mg 100 mg, Oral, ONCE, 1 dose, On Yael 11/20/20 at 0900, For oral use, administer tablet with at least 8 ounces (240 mL) of water and have patient sit up for at least 30 minutes to reduce the risk of esophageal irritation and ulceration.Notify provider if patient unable to cooperate. For enteral tube administration, tablet may be crushed., Indications: Periorbital cellulitisIndications:Periorbita l cellulitis Given 11/20/2020 8:36 AM CDT 100 mg ibuprofen (MOTRIN) tablet 600 mg 600 mg, Oral, ONCE, 1 dose, On Yael 11/20/20 at 0900 Given 11/20/2020 8:36 AM CDT 600 mg sulfamethoxazole-trimethoprim DS (BACTRIM DS, SEPTRA DS) 800-160 MG per tablet 1 Tablet 1 Tablet, Oral, ONCE, 1 dose, On Yael 11/20/20 at 0900, Dose based on trimethoprim component, Indications: periorbital cellulitisIndications:periorbita l cellulitis Given 11/20/2020 8:36 AM CDT 1 Tablet documented in this encounter Active and Recently Administered Medications Times are shown in CDT. Scheduled Medication Order 11/18/2020 11/19/2020 11/20/2020 doxycycline hyclate (VIBRA-TABS) tablet 100 mg (COMPLETED) 100 mg, Oral, ONCE, 1 dose, On Yael 11/20/20 at 0900, For oral use, administer tablet with at least 8 ounces (240 mL) of water and have patient sit up for at least 30 minutes to reduce the risk of esophageal irritation and ulceration.Notify provider if patient unable to cooperate. For enteral tube administration, tablet may be crushed., Indications: Periorbital cellulitis 0836 (Given - Provid er: Rocio Hoover RN) ibuprofen (MOTRIN) tablet 600 mg (COMPLETED) 600 mg, Oral, ONCE, 1 dose, On Yael 11/20/20 at 0900 0836 (Given - Provid er: Rocio Hoover RN) sulfamethoxazole-trimethoprim DS (BACTRIM DS, SEPTRA DS) 800-160 MG per tablet 1 Tablet (COMPLETED) 1 Tablet, Oral, ONCE, 1 dose, On Yael 11/20/20 at 0900, Dose based on trimethoprim component, Indications: periorbital cellulitis 0836 (Given - Provid er: Rocio Hoover RN) documented in this encounter Care Teams Sole Tier Relationship Specialty Start Date End Date Dasha Mary, ACQUISITIONS LIBRARIAN, MOISTURE METER OPERATOR [address] [place] [address] PCP - General Advanced Practice Nurse 03/07/19 documented as of this encounter
--- OUTSIDE RECORDS SUMMARY | 2024-03-28 06:37 | XMS_ITS | Encounter Summary ---
Author Organization [facility] Address [address] [place] [address] Phone Care Team Providers Care Background Check Coordinator Name Role Phone Bassem Arleth STRE[address] CNP Primary Care Provider [phone] Reason for Visit * Reason Comments Abdominal Pain Encounter Details Date Type Department Care Team (Late st Contact Info) Description 05/04/2021 8:14 AM EMBEDDER - 05/04/2021 10:21 AM [facility] Emergency [facility] Emergency [address] [place] [address] Jose Patiño, DO [address] [place] [address] Periumbilical abdominal pain Discharge Disposition: Discharged to home or Selfcare [...] have Coronavirus / COVID-19? No / Unsure 05/04/2021 8:11 AM EMBEDDER documented as of this encounter Last Filed Vital Signs Vital Sign Reading Time Taken Comments Blood Pressure 117/78 05/04/2021 10:15 AM EMBEDDER Pulse 68 05/04/2021 10:15 AM EMBEDDER Temperature 36.3 ??C (97.3 ??F) 05/04/2021 8:11 AM CS T Respiratory Rate 16 05/04/2021 8:11 AM EMBEDDER Oxygen Saturation 96% 05/04/2021 10:15 AM EMBEDDER Inhaled Oxygen Concentration - - Weight 95.7 kg (211 lb) 05/04/2021 8:11 AM EMBEDDER Height 180.3 cm (5' 11 ) 05/04/2021 8:11 AM EMBEDDER Body Mass Index 29.43 05/04/2021 8:11 AM EMBEDDER documented in this encounter Discharge Instructions * Discharge Instructions* Jose Patioñ DO - 05/04/2021 10:09 AM EMBEDDER Follow up with your doctor within 24hrs Take Medications as prescribed. Return to ER immediately at anytime if symptoms worsen/ persists, chest pain, shortness of breath, lightheadedness, loss of consciousness, numbness/weakness/tingling in your arms or legs. If patient is using abdominal or rib muscles to breathe or breathing faster than normal. Return if fevers greater than 101, continuous vomiting, inability to drink fluids or tolerate solids by mouth, dehydration, lethargy, if patient not acting normally or any other concerns you may have. Please followup with your primary care doctor or the physician he had been given here in the emergency department prior to any travel. DDER * Attachments The following attachments cannot be sent through Care Everywhere. * Abdominal Pain Adult [id number] (Puerto Rican) * Hematemesis ([place]ican) documented in this encounter Medications at Time [...] as of this encounter ED Notes * Lisa Silva RN - 05/04/2021 10:20 AM CST Patient discharged. Discharge instructions and patient educational material reviewed with patient; questions and concerns addressed; patient verbalizes understanding, using teach back. Patient was given 2 prescriptions. Patient was informed no drinking alcohol, driving or operating heavy machinery while taking narcotics or muscle relaxants. Patient discharged per ambulatory mode with steady gait.SL D/C'ed with Chris cath intact. DDER * Lisa Silva RN - 05/04/2021 10:09 AM CST Pt medicated per provider orders. Pt educated on intended effects and side effects of medication and verbalized understanding, able to provide teach back of education. DDER * Jose Patiño, - 05/04/2021 8:47 AM CST Chief Complaint Patient presents with ??? Abdominal Pain 30-year-old male complains of epigastric abdominal pain, constant, history of abdominal pain of similar quality over the last number of months and years however he had 1 episode of vomiting and had some blood in his vomit so this concerned him. He notes when he was 8 years old he had a tonsillectomy and had hematemesis due to swallowing blood postoperatively. He does not have a GI doctor. Current Facility-Administered Medications Medication Dose Route Frequency Provider Last Rate Last Admin ??? [COMPLETED] dicyclomine (BENTYL) injection 20 mg 20 mg Intramuscular Once Jose Patiño DO 20 mg at 05/04/21 1030 ??? ondansetron (ZOFRAN) injection 4 mg 4 mg Intravenous Q6H PRN Jose Patiño DO 4 mg at05/04/21 0839 Current Outpatient Medications Medication Sig Dispense Refill ??? diazePAM (VALIUM PO) Take by mouth. ??? dicyclomine (BENTYL) 20 MG Tablet Take 1 Tablet by mouth every 6 hours. 30 Tablet 0 ??? dicyclomine (BENTYL) 20 MG Tablet Take [...] ??? ondansetron (ZOFRAN) 4 MG Tablet Take 1-2 Tablets by mouth every 8 hours as needed for Nausea -1st line. 20 Tablet 0 ??? ondansetron (ZOFRAN) 4 MG Tablet [...] 0 Allergies Allergen Reactions ??? Penicillins Hives No past medical history on file. Past Surgical History: Procedure Laterality Date ??? KNEE SURGERY ??? TONSILLECTOMY Social History Socioeconomic History ??? Marital status: [...] Alcohol use: Not Currently ??? Drug use: Yes Types: Marijuana ??? Sexual activity: Not on file Other Topics Concern ??? Not on file Social History Narrative ??? Not on file BP 130/69 Pulse 75 Temp 97.3 ??F (36.3 ??C) (Tympanic) Resp 16 Ht 5' 11 (1.803 m) Wt 211lb (95.7 kg) SpO2 97% BMI 29.43 kg/m?? Review of Systems Constitutional: Negative for activity change, appetite change, chills, diaphoresis, fatigue and fever. HENT: Negative for dental problem, rhinorrhea and sore throat. Eyes: Negative for visual disturbance. Respiratory: Negative for cough, chest tightness, shortness of breath and wheezing. Cardiovascular: Negative for chest pain, palpitations and leg swelling. Gastrointestinal: Positive for nausea and vomiting. Negative for abdominal pain, constipation and diarrhea. Genitourinary: Negative for difficulty urinating, flank pain, hematuria and urgency. Musculoskeletal: Negative for arthralgias, back pain, myalgias, neck pain and neck stiffness. Skin: Negative for color change and rash. Allergic/Immunologic: Negative for food allergies. Neurological: Negative for dizziness, syncope, weakness, light-headedness, numbness and headaches. Psychiatric/Behavioral: Negative for self-injury, sleep disturbance and suicidal ideas. All other systems reviewed and are negative. Physical Exam Vitals and nursing note reviewed. Constitutional: General: He is not in acute distress. Appearance: He is well-developed. He is not diaphoretic. Comments: Older appearing than stated age, male, very pleasant cooperative, no family at the bedside, no acute distress. HENT: Head: Normocephalic and atraumatic. Right Ear: External ear normal. Left Ear: External ear normal. Nose: Nose normal. Mouth/Throat: Pharynx: No oropharyngeal exudate. Eyes: General: Right eye: No discharge. Left eye: No discharge. Conjunctiva/sclera: Conjunctivae normal. Pupils: Pupils are equal, round, and reactive to light. Neck: Thyroid: No thyromegaly. Vascular: No JVD. Trachea: No tracheal deviation. Cardiovascular: Rate and Rhythm: Normal rate and regular rhythm. Heart sounds: Normal heart sounds. No murmur heard. Pulmonary: Effort: Pulmonary effort is normal. No respiratory distress. Breath sounds: Normal breath sounds. No wheezing or rales. Chest: Chest wall: No tenderness. Abdominal: General: Bowel sounds are normal. There is no distension. Palpations: Abdomen is soft. There is no mass. Tenderness: There is abdominal tenderness in the periumbilical area. There is no guarding or rebound. Musculoskeletal: General: No tenderness. Normal range of motion. Cervical back: Normal range of motion and neck supple. Lymphadenopathy: Cervical: No cervical adenopathy. Skin: General: Skin is warm and dry. Capillary Refill: Capillary refill takes less than 2 seconds. Coloration: Skin is not pale. Findings: No erythema or rash. Neurological: Mental Status: He is alert and oriented to person, place, and time. Cranial Nerves: No cranial nerve deficit. Motor: No abnormal muscle tone. Coordination: Coordination normal. Deep Tendon Reflexes: Reflexes are normal and symmetric. Psychiatric: Behavior: Behavior normal. Thought Content: Thought content normal. Emergency Department Progress. (Note: only significant re-evaluation times are documented, patientsin the emergency department typically have many more re- evaluations than reasonably document) 10:23 AM EMBEDDER Re-eval: Patient feeling better, no new issues, wants to go home, he is comfortable with discharge and follow up with primary care doctor. All questions have been answered to the patient and any friends/family present currently present. In reviewing the patient's chart, their primary care doctor is ARLETH PATEL APRN, [employer]. CMP (Comprehensive Metabolic Panel) Final Result Complete Blood Count (CBC) WITH Diff Final Result Lipase Final Result Extra Tubes Final Result Labs Reviewed CMP (COMPREHENSIVE METABOLIC PANEL) - Abnormal; Notable for the following components: Result Value SODIUM 134 (*) GLUCOSE 100 (*) CREATININE, BLOOD 0.64 (*) CALCIUM 8.2 (*) All other components within normal limits CBC WITH AUTO DIFFERENTIAL - Abnormal; Notable for the following components: LYMPHOCYTES 16.0 (*) ABSOLUTE NEUTROPHILS 7.67 (*) ABSOLUTE MONOCYTES 1.35 (*) ABSOLUTE EOSINOPHIL 0.52 (*) All other components within normal limits LIPASE - Normal COMPLETE BLOOD COUNT (CBC) WITH DIFF Narrative: The following orders were created for panel order Complete Blood Count (CBC) WITH Diff. Procedure Abnormality Status --------- ------ CBC with Auto Differential[[id number]] Abnormal Final result Please view results for these tests on the individual orders. EXTRA TUBES Narrative: The following orders were created for panel order Extra Tubes. Procedure Abnormality Status --------- ------ Gold Top Tube[[id number]] Final result Please view results for these tests on the individual orders. GOLD TOP TUBE I have reviewed the available labs, imaging, and nursing notes. Procedures Imaging Results None Labs Reviewed CMP (COMPREHENSIVE METABOLIC PANEL) - Abnormal; Notable for the following components: Result Value SODIUM 134 (*) GLUCOSE 100 (*) CREATININE, BLOOD 0.64 (*) CALCIUM 8.2 (*) All other components within normal limits CBC WITH AUTO DIFFERENTIAL - Abnormal; Notable for the following components: LYMPHOCYTES 16.0 (*) ABSOLUTE NEUTROPHILS 7.67 (*) ABSOLUTE MONOCYTES 1.35 (*) ABSOLUTE EOSINOPHIL 0.52 (*) All other components within normal limits LIPASE - Normal COMPLETE BLOOD COUNT (CBC) WITH DIFF Narrative: The following orders were created for panel order Complete Blood Count (CBC) WITH Diff. Procedure Abnormality Status --------- ------ CBC with Auto Differential[[id number]] Abnormal Final result Please view results for these tests on the individual orders. EXTRA TUBES Narrative: The following orders were created for panel order Extra Tubes. Procedure Abnormality Status --------- ------ Gold Top Tube[[id number]] Final result Please view results for these tests on the individual orders. GOLD TOP TUBE MDM Number of Diagnoses or Management Options Amount and/or Complexity of Data Reviewed Clinical lab tests: ordered and reviewed Tests in the radiology section of CPT??: ordered and reviewed Review and summarize past medical records: yes Reviewed: previous chart, nursing note and vitals Interpretation: labs Patient with no apparent acute surgical condition at this time. I have spoken with the patient at great length and recommend to return to the ED in 12 hours for abdominal re-examination. The patient displays understanding. I have done appendicitis teaching at the bedside and what to symptomatolgy to watch out for and when to return to the ED. The abdominal pain is currently likely due to viral gastroenteritis, hemoglobin stable, recommended supportive care at home. Meds as below. Clinical Impression 1. Hematemesis with nausea 2. Periumbilical abdominal pain Disposition: Discharge home Condition:Stable CLINICAL IMPRESSION: 1. Hematemesis with nausea 2. Periumbilical abdominal pain Current Outpatient Medications Medication Instructions ??? diazePAM (VALIUM PO) Oral ??? dicyclomine (BENTYL) 20 mg, Oral, EVERY 6 HOURS ??? dicyclomine (BENTYL) 20 mg, Oral, EVERY 6 HOURS ??? divalproex (DEPAKOTE) 125 mg, Oral, 2 TIMES DAILY ??? HYDROcodone-acetaminophen (NORCO) 5-325 MG Tablet 1 Tablet, Oral, EVERY 8 HOURS PRN ??? ibuprofen (MOTRIN) 600 mg, Oral, EVERY 8 HOURS ??? ibuprofen (MOTRIN) 600 mg, Oral, EVERY 8 HOURS PRN ??? ibuprofen (MOTRIN) 600 mg, Oral, EVERY 6 HOURS PRN ??? ondansetron (ZOFRAN) 4 mg, Oral, EVERY 8 HOURS PRN ??? ondansetron (ZOFRAN) 4-8 mg, Oral, EVERY 8 HOURS PRN ??? predniSONE (DELTASONE) 50 mg, Oral, DAILY ??? SUMAtriptan (IMITREX) 25 mg, Oral, ONCE PRN, Use as directed. May repeat dose in 2 hours if headache recurs. ??? traMADol (ULTRAM) 50 mg, Oral, EVERY 6 HOURS PRN No current facility-administered medications on file prior to encounter. Current Outpatient Medications on File Prior to Encounter Medication Sig Dispense Refill ??? diazePAM (VALIUM [...] taking: Reported on 03/07/2019) 15 Tab 0 Jose Patiño D.O. Emergency/Tactical Medicine DDER * Lisa Silva, RN - 05/04/2021 8:40 AM CST Pt medicated per provider orders. Pt educated on intended effects and side effects of medication and verbalized understanding, able to provide teach back of education. DDER * Veronica Urrutia RN - 05/04/2021 8:13 AM CST Patient presents to ED triage with complaint of abdominal pain starting today. Patient states that he had one episode of vomiting that looked like coffee ground emesis. Patient states that he is now getting over bronchitis. DDER documented in this encounter Miscellaneous Notes * Interdisciplinary - Sr. Faraz Dodson - 05/04/2021 9:30 AM CST Very polite young man. He stated that he was hinduism and believed in God but didn't feel comfortable praying outl oud. (Not too many people are). Was willing for me to pray. DDER documented in this encounter Plan of Treatment Not on file documented as of this encounter Procedures Procedure Name Priority Date/Time Associated Diagnosis Comments EXTRA TUBES STAT 05/04/2021 8:34 AM EMBEDDER GOLD TOP TUBE STAT 05/04/2021 8:34 AM EMBEDDER CBC WITH AUTO DIFFERENTIAL STAT 05/04/2021 8:34 AM EMBEDDER LIPASE STAT 05/04/2021 8:34 AM EMBEDDER CMP (COMPREHENSIVE METABOLIC PANEL) STAT 05/04/2021 8:34 AM EMBEDDER COMPLETE BLOOD COUNT (CBC) WITH DIFF STAT 05/04/2021 8:34 AM EMBEDDER documented in this encounter Results * Gold Top Tube (05/04/2021 8:34 AM EMBEDDER) Blood No Phlebotomy Charged / Unknown 05/04/2021 8:34 AM EMBEDDER 05/04/2021 8:50 AM EMBEDDER us Jose Patiño DO CHEMISTRY ORDERABLES Fi nal Result [facility] [address] [place] [address] * (ABNORMAL) CBC with Auto Differential (05/04/2021 8:34 AM EMBEDDER) WBC 11.47 4.00 - 12.00 10(3)/mcL 05/04/2021 8:59 AM EMBEDDER [facility] RBC 5.19 4.40 - 5.80 10(6)/mcL 05/04/2021 8:59 AM EMBEDDER [facility] HEMOGLOBIN (HGB) 15.2 13.0 - 16.5 g/dL 05/04/2021 8:59 AM EMBEDDER [facility] HEMATOCRIT (HCT) 47.1 38.0 - 50.0 % 05/04/2021 8:59 AM EMBEDDER [facility] MCV 90.8 82.0 - 96.0 fL 05/04/2021 8:59 AM EMBEDDER [facility] MCH 29.3 26.0 - 32.0 pg 05/04/2021 8:59 AM EMBEDDER [facility] MCHC 32.3 31.0 - 36.0 g/dL 05/04/2021 8:59 AM EMBEDDER [facility] PLATELET COUNT 256 140 - 440 10(3)/mcL 05/04/2021 8:59 AM EMBEDDER [facility] RDW 13.4 11.8 - 15.5 % 05/04/2021 8:59 AM EMBEDDER [facility] MPV 9.4 8.0 - 12.6 fL 05/04/2021 8:59 AM EMBEDDER [facility] NEUTROPHILS 66.9 40.0 - 68.0 % 05/04/2021 8:59 AM EMBEDDER [facility] LYMPHOCYTES 16.0(L) 19.0 - 49.0 % 05/04/2021 8:59 AM EMBEDDER [facility] MONOCYTES 11.8 3.0 - 13.0 % 05/04/2021 8:59 AM [facility] EOSINOPHILS 4.5 0.0 - 8.0 % 05/04/2021 8:59 AM [facility] BASOPHILS 0.8 0.0 - 1.0 % 05/04/2021 8:59 AM [facility] ABSOLUTE NEUTROPHILS 7.67(H) 1.40 - 5.30 10(3)/[facility] 05/04/2021 8:59 AM [facility] ABSOLUTE LYMPHOCYTES 1.84 0.90 - 3.30 10(3)/[facility] 05/04/2021 8:59 AM [facility] ABSOLUTE MONOCYTES 1.35(H) 0.10 - 0.90 10(3)/[facility] 05/04/2021 8:59 AM [facility] ABSOLUTE EOSINOPHIL 0.52(H) 0.00 - 0.50 10(3)/[facility] 05/04/2021 8:59 AM [facility] ABSOLUTE BASOPHILS 0.09 0.00 - 0.10 10(3)/[facility] 05/04/2021 8:59 AM [facility] NRBC PER 100 WBC 0 05/04/19 8:59 AM [facility] Blood Venous Catheter (IV) / Unknown 05/04/2021 8:34 AM EMBEDDER 05/04/2021 8:49 AM EMBEDDER us Jose Patiño DO HEMATOLOGY ORDERABLES F inal Result [facility] [address] [place] [address] * Lipase (05/04/2021 8:34 AM EMBEDDER) Pathologist [facility] LIPASE 26.3 13 - 60 U/L 05/04/2021 9:34 AM EMBEDDER [facility] Blood Venous Catheter (IV) / Unknown 05/04/2021 8:34 AM EMBEDDER 05/04/2021 8:49 AM EMBEDDER us Jose Patiño DO CHEMISTRY ORDERABLES Fi nal Result Performing Organization Address City/[facility]/ZIP Co de Phone Number [facility] [address] [place] [address] * (ABNORMAL) CMP (Comprehensive Metabolic Panel) (05/04/2021 8:34 AM EMBEDDER) [facility] SODIUM 134(L) 136 - 144 mmol/L 05/04/2021 9:33 AM [facility] POTASSIUM 4.0 3.5 - 5.1 mmol/L 05/04/2021 9:33 AM EMBEDDER [facility] CHLORIDE 101 100 - 110 mmol/L 05/04/2021 9:33 AM [facility] CO2, VENOUS 24 22 - 32 mmol/L 05/04/2021 9:33 AM EMBEDDER [facility] ANION GAP 13.0 8.0 - 20.0 mmol/L 05/04/2021 9:33 AM EMBEDDER [facility] GLUCOSE 100(H) 70 - 99 mg/dL 05/04/2021 9:33 AM EMBEDDER [facility] BUN 8 6 - 20 mg/dL 05/04/2021 9:33 AM [facility] CREATININE, BLOOD 0.64(L) 0.80 - 1.30 mg/dL 05/04/2021 9:33 AM [facility] BUN/CREATININE RATIO 13 12 - 20 ratio 05/04/2021 9:33 AM [facility] TOTAL PROTEIN 6.2 6.0 - 8.3 g/dL 05/04/2021 9:33 AM [facility] ALBUMIN 3.8 3.5 - 5.2 g/dL 05/04/2021 9:33 AM [facility] Comment: The colormetric methods used for the determination of Albumin may lead to falsely elevated test results in patients suffering from renal failure or insufficiency due to interference with other proteins. A/G RATIO 1.6 1.0 - 2.0 05/04/2021 9:33 AM [facility] CALCIUM 8.2(L) 8.9 - 10.3 mg/dL 05/04/2021 9:33 AM [facility] T BILI <0.3 <=1.2 mg/dL 05/04/2021 9:33 AM [facility] SGOT (AST) 15 <=40 U/L 05/04/2021 9:33 AM [facility] SGPT (ALT) 26 <=41 U/L 05/04/2021 9:33 AM [facility] ALKALINE PHOSPHATASE 92 40 - 130 U/L 05/04/2021 9:33 AM [facility] GFR, EST. NONAFRICAN >60 >=60 05/04/2021 9:33 AM [facility] GFR, EST. >60 >=60 022 9:33 AM [facility] Comment: Creatinine Clearance is the preferred criteria for selecting drug dose adjustments in renally impaired patients. ??The GFR is provided as additional pertinent clinical information. GFR is reported in mL/min/1.73 sq m. Blood Venous Catheter (IV) / Unknown 05/04/2021 8:34 AM EMBEDDER 05/04/2021 8:49 AM EMBEDDER us Jose Patiño DO CHEMISTRY ORDERABLES Fi nal Result [facility] [address] [place] [address] documented in this encounter Visit Diagnoses Diagnosis Hematemesis with nausea Periumbilical abdominal pain Abdominal pain, periumbilic documented in this encounter Administered Medications Inactive Administered Medications - up to 3 most recent administrations Medication Order MAR Action Action Date Dose Rate Site 0.9 % sodium chloride solution at 999 mL/hr, Intravenous, ONCE, 1 dose, On Tue05/04/21 at 0900 New Bag 05/04/2021 8:39 AM EMBEDDER 1,000 mL 999 mL/hr dicyclomine (BENTYL) injection 20 mg 20 mg, Intramuscular, ONCE, 1 dose, On Tue05/04/21 at 1030 Given 05/04/2021 10:08 AM EMBEDDER 20 mg Right Ventrogluteal ondansetron (ZOFRAN) injection 4 mg 4 mg, Intravenous, EVERY 6 HOURS PRN, 3 doses, Starting on Tue05/04/21 at 0817, Until Tue05/04/21 at 1230, Nausea - 1st line Given 05/04/2021 8:39 AM EMBEDDER 4 mg documented in this encounter Active and Recently Administered Medications Times are shown in EMBEDDER. Scheduled Medication Order 05/02/2021 05/03/2021 05/04/2021 0.9 % sodium chloride solution (COMPLETED) at 999 mL/hr, Intravenous, ONCE, 1 dose, On Tue05/04/21 at 0900 0839 (New Bag - Prov ider: Lisa Silva RN)1009 (Stopped - Provider: Lisa Silva RN) dicyclomine (BENTYL) injection 20 mg (COMPLETED) 20 mg, Intramuscular, ONCE, 1 dose, On Tue05/04/21 at 1030 1008 (Given - Provid er: Lisa Silva RN) PRN Medication Order 05/02/2021 05/03/2021 05/04/2021 ondansetron (ZOFRAN) injection 4 mg 4 mg, Intravenous, EVERY 6 HOURS PRN, 3 doses, Starting on Tue05/04/21 at 0817, Until Tue05/04/21 at 1230, Nausea - 1st line 0839 (Given - Provid er: Lisa Silva RN) documented in this encounter Additional Health Concerns Infection Onset Date Last Indicated Resolved Time COVID - 19 04/23/2021 04/23/2021 05/13/2021 12:1 6 AM EMBEDDER documented as of this encounter Care Teams Background Check Coordinator Relationship Specialty Start Date End Date Arleth Patel APRN, [place] [address] [place] [address] PCP - General Family Medicine 04/16/21 documented as of this encounter
--- OUTSIDE RECORDS SUMMARY | 2024-03-28 06:37 | XMS_ITS | Encounter Summary ---
Author Organization [facility] Care Team Providers Care Commercial Energy Rater Name Role Phone Dasha Mary APRN, CNP Primary Care Provider Encounter Details Date Type Department Care Team (Latest Contact Info) Description 01/26/2021 Travel Social History Tobacco Use Types Packs/Day [...] COVID-19? 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
--- OUTSIDE RECORDS SUMMARY | 2024-03-28 06:37 | XMS_ITS | Encounter Summary ---
Author Organization [facility] Care Team Providers Care Stone Repairer Name Role Phone Arleth Luevano APRN, CNP Primary Care Provider [phone] Encounter Details Date Type Department Care Team (Latest Contact Info) Description 07/14/2023 Travel Social History Tobacco Use Types Packs/Day [...] on filedocumented in this encounter Care Teams Stone Repairer Relationship Specialty Start Date End Date Arleth Luevano APRN, CNP [address] [place] [address] PCP - General Family Medicine 04/16/21 documented as of this encounter
--- OUTSIDE RECORDS SUMMARY | 2024-03-28 06:37 | XMS_ITS | Encounter Summary ---
Author Organization [facility] Address [address] [place] [address] Phone Care Team Providers Care Director Of Safety And Security Name Role Phone Bassem Arleth STREET CNP Primary Care Provider [phone] [phone] Reason for Visit * Reason Comments Chest Congestion Cough Encounter Details Date Type Department Care Team ([facility] st Contact Info) Description 04/23/2021 11:22 AM TOOL TROUBLE SHOOTER - 04/23/2021 12:48 PM TOOL TROUBLE SHOOTER Emergency [facility] Emergency [address] [place] [address] Dasha Mancia, PAC #[address] [place] [address] Acute bronchitis Discharge Disposition: Discharged to home or Selfcare [...] have Coronavirus / COVID-19? No / Unsure 04/23/2021 11:22 AM TOOL TROUBLE SHOOTER documented as of this encounter Last Filed Vital Signs Vital Sign Reading Time Taken Comments Blood Pressure 156/87 04/23/2021 11:22 AM TOOL TROUBLE SHOOTER Pulse 93 04/23/2021 11:22 AM TOOL TROUBLE SHOOTER Temperature 36.3 ??C (97.4 ??F) 04/23/2021 11:[address] Respiratory Rate 16 04/23/2021 11:22 AM TOOL TROUBLE SHOOTER Oxygen Saturation 99% 04/23/2021 11:22 AM TOOL TROUBLE SHOOTER Inhaled Oxygen Concentration - - Weight 95.3 kg (210 lb) 04/23/2021 11:23 AM TOOL TROUBLE SHOOTER Height 180.3 cm (5' 11 ) 04/23/2021 11:23 AM TOOL TROUBLE SHOOTER Body Mass Index 29.29 04/23/2021 11:23 AM TOOL TROUBLE SHOOTER documented in this encounter Discharge Instructions * Discharge Instructions* Dasha Mancia PAC - 04/23/2021 12:19 PM TOOL TROUBLE SHOOTER Please follow up with your primary care provider. Return for reevaluation if your symptoms change or worsen. TROUBLE SHOOTER * Attachments The following attachments cannot be sent through Care Everywhere. * Acute Bronchitis Adult ([place]) documented in this encounter Medications at Time [...] or more severe pain. 15 Tab 02/12/2019 predniSONE (DELTASONE) 20 MG Tablet Take 3 Tablets by mouth daily for 5 days. 15 Tablet 04/23/2021 04/28/2021 documented as of this encounter ED Notes * Dasha Matias RN - 04/23/2021 12:46 PM CST Patient discharged. Discharge instructions and patient educational material reviewed with patient; questions and concerns addressed; patient verbalizes understanding, using teach back. Patient was given 1 prescription. Patient discharged per ambulatory mode with self as responsible constitution party. TROUBLE SHOOTER * Dasha Matias RN - 04/23/2021 11:44 AM CST Pt to xray. TROUBLE SHOOTER * Dasha Mancia PAC - 04/23/2021 11:37 AM CST Chief Complaint Patient presents with ??? Chest Congestion ??? Cough HPI Yaya Rubi is a 30 y.o. male who presents due to chest congestion, chest discomfort, sore throat, nasal congestion, and a nonproductive cough which has been occurring for the past week. Patient states he tested negative for COVID when his symptoms first began. He denies any sob, fever, body aches, diarrhea, or vomiting. He is a smoker. His provider is Arleth Luevano. He denies any chronic medical problems or known exposures. He does not have his covid vaccine. No current facility-administered medications for this encounter. [...] line. 10 Tab 0 ??? predniSONE (DELTASONE) 20 MG Tablet Take 3 Tablets by mouth daily for 5 days. 15 Tablet 0 ??? predniSONE (DELTASONE) 50 MG Tablet [...] risk not applicable to this patient. BP 156/87 Pulse 93 Temp 97.4 ??F (36.3 ??C) (Tympanic) Resp 16 Ht 5' 11 (1.803 m) Wt 210lb (95.3 kg) SpO2 99% BMI 29.29 kg/m?? Review of Systems Constitutional: Negative for chills and fever. HENT: Positive for congestion and sore throat. Negative for ear pain and rhinorrhea. Eyes: Negative for discharge. Respiratory: Positive for cough. Negative for chest tightness, shortness of breath and wheezing. Cardiovascular: Negative for chest pain and palpitations. Gastrointestinal: Negative for abdominal pain, diarrhea, nausea and vomiting. Genitourinary: Negative for flank pain and testicular pain. Musculoskeletal: Negative for back pain and myalgias. Skin: [...] Effort: Pulmonary effort is normal. Breath sounds: Rhonchi present. Abdominal: General: There is no distension. Palpations: Abdomen is soft. Tenderness: There is no abdominal tenderness. Musculoskeletal: General: Normal range of motion. Cervical back: Normal range of motion and neck supple. Skin: General: Skin is warm and dry. Neurological: Mental Status: He is alert and oriented to person, place, and time. Cranial Nerves: No cranial nerve deficit. Psychiatric: Behavior: Behavior normal. Labs Reviewed SARS-COV-2 BY MOLECULAR CULTURE, GRP A STREPTOCOCCUS, CULT ONLY POCT GROUP A STREP SCREEN RAPID XR CHEST 2 VIEWS Final Result IMPRESSION: No acute cardiopulmonary abnormality. Procedures Imaging Results XR CHEST 2 VIEWS (Final result) Result time 04/23/21 11:56:34 Final result by Lillian Santana DO (04/23/21 11:56:34) Impression: IMPRESSION: No acute cardiopulmonary abnormality. Narrative: EXAM DESCRIPTION: XR CHEST 2 VIEWS REASON FOR STUDY: chest congestion, cough x 1 week. smoker TECHNIQUE: Frontal and lateral radiographic views of the chest acquired. COMPARISON: None FINDINGS: The heart, mediastinum, pulmonary vasculature are grossly unremarkable. There is no definite evidence of a pneumothorax. There is no definite evidence of focal consolidation or pleural effusion. The osseous structures are acutely grossly unremarkable. THIS IS AN ELECTRONICALLY VERIFIED FINAL REPORT 04/23/2021 11:53 AM - Electronically signed by Lillian Santana D.O. PS: PS Report ID: [id number] Reading Location: [place] [address] Labs Reviewed SARS-COV-2 BY MOLECULAR CULTURE, GRP A STREPTOCOCCUS, CULT ONLY POCT GROUP A STREP SCREEN RAPID MDM Coding Clinical Impression 1. Acute bronchitis 2. Person under investigation for COVID-19 Patient was started on prednisone for bronchitis. Advised that he return for reevaluation if sx change or worsen. He expressed understanding and agreement to the tx plan. Cosigned by Kevin Bahena MD at 04/23/2021 12:47 PM TOOL TROUBLE SHOOTER TROUBLE SHOOTER TROUBLE SHOOTER * Dasha Matias RN - 04/23/2021 11:25 AM CST Pt to ED with complaints of non-productive cough, sore throat, and chest congestion. Pt states his symptoms started a week ago. Pt states his employer made him get a covid test the day his symptoms started and it was negative at that time. Pt denies known covid exposure. TROUBLE SHOOTER documented in this encounter Plan of Treatment Not on file documented as of this encounter Procedures Procedure Name Priority Date/Time Associated Diagnosis Comments XR CHEST 2 VIEWS STAT 04/23/2021 11:5 0 AM TOOL TROUBLE SHOOTER SARS-COV-2 BY MOLECULAR STAT 04/23/2021 11:49 AM TOOL TROUBLE SHOOTER POCT GROUP A STREP SCREEN RAPID STAT 04/23/2021 11:49 AM TOOL TROUBLE SHOOTER CULTURE, GRP A STREPTOCOCCUS, CULT ONLY STAT 04/23/2021 11:49 AM TOOL TROUBLE SHOOTER documented in this encounter Results * XR CHEST 2 VIEWS (04/23/2021 11:50 AM TOOL TROUBLE SHOOTER) Anatomical Region Laterality Modality Chest N/A Digital Radiogra phy 04/23/2021 11:5 3 AM TOOL TROUBLE SHOOTER Impressions 04/23/2021 11:56 AM TOOL TROUBLE SHOOTER IMPRESSION: ?? No acute cardiopulmonary abnormality. Narrative 04/23/2021 11:56 AM TOOL TROUBLE SHOOTER EXAM DESCRIPTION: ?? XR CHEST 2 VIEWS REASON FOR STUDY: ?? chest congestion, cough x 1 week. smoker TECHNIQUE: ?? Frontal ??and lateral radiographic views of the chest acquired. COMPARISON: ?? None FINDINGS: The heart, mediastinum, pulmonary vasculature are grossly unremarkable. ??There is no definite evidence of a pneumothorax. ?? There is no definite evidence of focal consolidation or pleural effusion. The osseous structures are acutely grossly unremarkable. THIS IS AN ELECTRONICALLY VERIFIED FINAL REPORT 04/23/2021 11:53 AM - Electronically signed by ??Lillian Santana D.O. PS: PS D: ??04/23/2021 11:53 AM T: ??04/23/2021 11:53 AM Report ID: [id number] Reading Location: ??[id number] Procedure Note Lillian Santana DO - 04/23/2021 EXAM DESCRIPTION: XR CHEST 2 VIEWS REASON FOR STUDY: chest congestion, cough x 1 week. smoker TECHNIQUE: Frontal and lateral radiographic views of the chest acquired. COMPARISON: None FINDINGS: The heart, mediastinum, pulmonary vasculature are grossly unremarkable. There is no definite evidence of a pneumothorax. There is no definite evidence of focal consolidation or pleural effusion. The osseous structures are acutely grossly unremarkable. THIS IS AN ELECTRONICALLY VERIFIED FINAL REPORT 04/23/2021 11:53 AM - Electronically signed by Lillian Santana D.O. PS: PS Report ID: [id number] Reading Location: [place] [address] IMPRESSION: No acute cardiopulmonary abnormality. [facility] [place] Page PAC IMG DIAGNOSTIC ORDERABLES Fi nal Result * Culture, Grp A Streptococcus, Cult Only (04/23/2021 11:49 AM TOOL TROUBLE SHOOTER) CULTURE RESULTS NO STREP PYOGENES (GROUP A BETA HEMOLYTIC STREP) ISOLATED AFTER 2 DAYS 04/26/2021 11:55 AM TOOL TROUBLE SHOOTER [facility] Culture SPECIMEN FROM THROAT / Unknown Non-Phlebotomy Collection / Unknown 04/23/2021 11:49 AM TOOL TROUBLE SHOOTER 04/23/2021 12:27 PM TOOL TROUBLE SHOOTER [facility] MICROBIOLOGY - GENERAL ORDER HEATHER Final Result [facility] [address] [place] [address], * SARS-COV-2 BY MOLECULAR (04/23/2021 11:49 AM TOOL TROUBLE SHOOTER) SARSCOV2 NOT DETECTED (Referen ce Range for this test is Not Detected ) [facility] THERMOFISHER FAST DX 04/24/2021 9:48 PM TOOL TROUBLE SHOOTER [facility] Comment:This test was perfor med by a RT-PCR method. Other NASAL STRUCTURE / Unknown Non-Phlebotomy Collection / Unknown 04/23/2021 11:49 AM TOOL TROUBLE SHOOTER 04/23/2021 12:26 PM TOOL TROUBLE SHOOTER Narrative [facility] - 04/24/2021 9:48 PM TOOL TROUBLE SHOOTER Authorized Fact Sheets about this test for providers and patients are available at: https://www.fda.gov/medical-devices/wgwdxzcby-knlejkorpe-nytmlxd-devices/emergen -us e-authorizations [facility] Page PAC MICROBIOLOGY - GENERAL ORDER HEATHER Final Result [facility] [address] [place] [address], * POCT Group A Strep Screen Rapid (04/23/2021 11:49 AM TOOL TROUBLE SHOOTER) POC STREP SCRN Presumptive negative POC STREP SCREEN CONTROL [employer] [place] [place] 04/23/2021 11:4 9 AM TOOL TROUBLE SHOOTER Dasha Normann Page PAC POINT OF CARE TESTING (MANUA L) Final Result documented in this encounter Visit Diagnoses Diagnosis Acute bronchitis- Primary Person under investigation for COVID-19 documented in this encounter Additional Health Concerns Infection Onset Date Last Indicated Resolved Time COVID - 19 04/23/2021 04/23/2021 05/13/2021 12:1 6 AM TOOL TROUBLE SHOOTER documented as of this encounter Care Teams Director Of Safety And Security Relationship Specialty Start Date End Date Arleth Luevano APRN, ESTHETIC DERMATOLOGIST [address] [place] [address] PCP - General Family Medicine 04/16/21 documented as of this encounter
--- OUTSIDE RECORDS SUMMARY | 2024-03-28 06:37 | XMS_ITS | Encounter Summary ---
Author Organization [employer] Care Team Providers Care Sea Air Land Officer Name Role Phone Dasha Mary APRN, CNP Primary Care Provider Encounter Details Date Type Department Care Team (Latest Contact Info) Description 10/29/2019 Travel Social History Tobacco Use Types Packs/Day [...] have Coronavirus / COVID-19? No / Unsure 10/29/2019 8:51 AM CDT documented as of this encounter Plan of Treatment Not on file documented as of this encounter Visit Diagnoses Not on filedocumented in this encounter Care Teams Sea Air Land Officer Relationship Specialty Start Date End Date Dasha Mary APRN, PRODUCTION GRIP [address] [place] [address] PCP - General Advanced Practice Nurse 03/07/19 documented as of this encounter
--- OUTSIDE RECORDS SUMMARY | 2024-03-28 06:37 | XMS_ITS | Encounter Summary ---
Author Organization [employer] Care Team Providers Care Sample Maker Hand Name Role Phone Arleth Luevano APRN, CNP Primary Care Provider [phone] Encounter Details Date Type Department Care Team (Latest Contact Info) Description 04/23/2021 Travel Social History Tobacco Use Types Packs/Day [...] COVID-19? No / Unsure 04/23/2021 11:22 AM MARINE EQUIPMENT RESEARCH ENGINEER documented as of this encounter Plan of Treatment Not on file documented as of this encounter Visit Diagnoses Not on filedocumented in this encounter Additional Health Concerns Infection Onset Date Last Indicated Resolved Time COVID - 19 04/23/2021 04/23/2021 05/13/2021 12:1 6 AM MARINE EQUIPMENT RESEARCH ENGINEER documented as of this encounter Care Teams Sample Maker Hand Relationship Specialty Start Date End Date Arleth Luevano APRN, CNP [address] [place] [address] PCP - General Family Medicine 04/16/21 documented as of this encounter
--- OUTSIDE RECORDS SUMMARY | 2024-03-28 06:37 | XMS_ITS | Encounter Summary ---
Author Organization [facility] Address [address] [place] [address] Phone Care Team Providers Care Street Light Repairer Helper Name Role Phone Arleth Luevano APRN, CNP Primary Care Provider [phone] [phone] Reason for Referral * Radiology Services (Routine) - Closed Specialty Diagnoses / Procedures Referred By Simon ring Referred To Contact Radiology Diagnoses Left lower quadrant pain Procedures XR ABDOMEN KUB FLAT PLATE Arleth Luevano APRN, CNP [address] [place] [address] Phone: tel: fax: Referral ID Status Reason Start Date Expiration Date Visits Re quested Visits Authorized [id number] Closed 12/21/2021 1 1 Encounter Details Date Type Department Care Team (Late st Contact Info) Description 12/21/2021 Transcribe Orders [facility] Central Scheduling [address] [place] [id number] Arleth Luevano APRN, CNP [address] [place] [address] Left lower quadrant pain (Primary Dx) Social History Tobacco Use Types Packs/Day Years [...] as of this encounter Plan of Treatment Scheduled Orders Name Type Priority Associated Diagnoses Orde r Schedule XR ABDOMEN KUB FLAT PLATE Imaging Routine Left lower quadrant pain Expected: 12/21/2021, Expires: 12/21/2022 documented as of this encounter Visit Diagnoses Diagnosis Left lower quadrant pain- Primary Abdominal pain, left lower quadrant documented in this encounter Care Teams Street Light Repairer Helper Relationship Specialty Start Date End Date Arleth Luevano APRN, INFECTION PREVENTION PRACTITIONER [address] [place] [address] PCP - General Family Medicine 04/16/21 documented as of this encounter
--- OUTSIDE RECORDS SUMMARY | 2024-03-28 06:37 | XMS_ITS | Encounter Summary ---
Author Organization [employer] Care Team Providers Care Chief Media Officer Name Role Phone Dasha Mary APRN, CNP Primary Care Provider Encounter Details Date Type Department Care Team (Latest Contact Info) Description 11/20/2020 Travel Social History Tobacco Use Types Packs/Day [...] on filedocumented in this encounter Care Teams Chief Media Officer Relationship Specialty Start Date End Date Dasha Mary APRN, CNP [address] [place] [address] PCP - General Advanced Practice Nurse 03/07/19 documented as of this encounter
--- OUTSIDE RECORDS SUMMARY | 2024-03-28 06:37 | XMS_ITS | Encounter Summary ---
Author Organization [facility] Address [address] [place] [address] Phone Care Team Providers Care Peoplesoft Consultant Name Role Phone Arleth Luevano APRN, CNP Primary Care Provider [phone] [phone] Reason for Referral * Radiology Services (Routine) - Closed Specialty Diagnoses / Procedures Referred By Contac t Referred To Contact Radiology Diagnoses Cough, unspecified type Procedures XR CHEST 2 VIEWS Arleth Luevano APRN, CNP [address] [place] [address] Phone: tel: fax: Referral ID Status Reason Start Date Expiration Date Visits Re quested Visits Authorized [id number] Closed 12/07/2022 1 1 * Radiology Services (Routine) - Closed Specialty Diagnoses / Procedures Referred By Contac t Referred To Contact Radiology Diagnoses Acute pain of left knee Procedures XR KNEE 3 VIEWS LEFT Arleth Luevano APRN, CNP [address] [place] [address] Phone: tel: fax: Referral ID Status Reason Start Date Expiration Date Visits Re quested Visits Authorized [id number] Closed 12/07/2022 1 1 Encounter Details Date Type Department Care Team (Late st Contact Info) Description 12/07/2022 Transcribe Orders [facility] Central Scheduling 1 [facility] [place] [address] Arleth Luevano, CONTENT CURATOR, CORRESPONDENCE COORDINATOR [address] [place] [address] Acute pain of left knee (Primary Dx); Cough, unspecified type Social History Tobacco Use Types Packs/Day Years [...] on file documented as of this encounter Results * XR CHEST 2 VIEWS (12/08/2022 10:51 AM CDT) Anatomical Region Laterality Modality Chest N/A Digital Radiogra phy 12/10/2022 2:01 AM CDT Impressions 12/10/2022 2:04 AM CDT IMPRESSION: No acute cardiopulmonary abnormality. Narrative 12/10/2022 2:04 AM CDT EXAM DESCRIPTION: XR CHEST 2 VIEWS REASON FOR STUDY: smoker, cough x 1 year. sob, tightness ? TECHNIQUE: 2 ??radiographic view(s) of the chest. COMPARISON: 04/23/2021 FINDINGS: LUNGS: ??No focal opacity, pleural effusion, or pneumothorax. ?? HEART/MEDIASTINUM: ??Cardiac silhouette normal in size. Mediastinal and hilar contours appear normal. LINES/TUBES: ??None. BONES: ??No acute osseous abnormality. THIS IS AN ELECTRONICALLY VERIFIED FINAL REPORT 12/10/2022 2:01 AM - Electronically signed by ??Reyes Rice M.D. KT: ROSA D: ??12/10/2022 2:01 AM T: ??12/10/2022 2:01 AM Report ID: [id number] Reading Location: ??[id number] Procedure Note Reyes Rice MD - 12/10/2022 EXAM DESCRIPTION: XR CHEST 2 VIEWS REASON FOR STUDY: smoker, cough x 1 year. sob, tightness TECHNIQUE: 2 radiographic view(s) of the chest. COMPARISON: 04/23/2021 FINDINGS: LUNGS: No focal opacity, pleural effusion, or pneumothorax. HEART/MEDIASTINUM: Cardiac silhouette normal in size. Mediastinal and hilar contours appear normal. LINES/TUBES: None. BONES: No acute osseous abnormality. THIS IS AN ELECTRONICALLY VERIFIED FINAL REPORT 12/10/2022 2:01 AM - Electronically signed by Reyes Rice M.D. KT: ROSA Report ID: [id number] Reading Location: [id number] IMPRESSION: No acute cardiopulmonary abnormality. Arleth Luevano CONTENT CURATOR, CORRESPONDENCE COORDINATOR IMG DIAGNOSTIC ORDERABLES Final Result * XR KNEE 3 VIEWS LEFT (12/08/2022 10:51 AM CDT) Anatomical Region Laterality Modality LOWER EXTREMITY, knee Left Digital Ra diography 12/10/2022 2:01 AM CDT Impressions 12/10/2022 2:03 AM CDT IMPRESSION: No acute osseous abnormality. Narrative 12/10/2022 2:03 AM CDT EXAM DESCRIPTION: XR KNEE 3 VIEWS LEFT REASON FOR STUDY: surg 2006 and 2007. mcl and acl repair. ??Acute left knee pain today. TECHNIQUE: 3 ??radiographic view(s) of the ??left knee . COMPARISON: 02/12/2019 FINDINGS: BONES/JOINTS: There is no acute fracture, malalignment or osseous abnormality. The joint spaces are normal. ??Postoperative changes of prior anterior cruciate ligament repair with 2 surgical screws in the proximal tibia. SOFT TISSUES: Within normal limits. ?? THIS IS AN ELECTRONICALLY VERIFIED FINAL REPORT 12/10/2022 2:01 AM - Electronically signed by ??Reyes Rice M.D. KT: ROSA D: ??12/10/2022 2:01 AM T: ??12/10/2022 2:01 AM Report ID: [id number] Reading Location: ??[id number] Procedure Note Reyes Rice MD - 12/10/2022 EXAM DESCRIPTION: XR KNEE 3 VIEWS LEFT REASON FOR STUDY: surg 2006 and 2007. mcl and acl repair. Acute left knee pain today. TECHNIQUE: 3 radiographic view(s) of the left knee . COMPARISON: 02/12/2019 FINDINGS: BONES/JOINTS: There is no acute fracture, malalignment or osseous abnormality. The joint spaces are normal. Postoperative changes of prior anterior cruciate ligament repair with 2 surgical screws in the proximal tibia. SOFT TISSUES: Within normal limits. THIS IS AN ELECTRONICALLY VERIFIED FINAL REPORT 12/10/2022 2:01 AM - Electronically signed by Reyes Rice M.D. KT: KT Report ID: [id number] Reading Location: [id number] IMPRESSION: No acute osseous abnormality. Arleth Luevano APRN, CNP IMDejuan DIAGNOSTIC ORDERABLES Final Result documented in this encounter Visit Diagnoses Diagnosis Acute pain of left knee- Primary Cough, unspecified type Cough, unspecified type Acute pain of left knee documented in this encounter Care Teams Peoplesoft Consultant Relationship Specialty Start Date End Date Arleth Luevano APRN, CNP [address] [place] [address] PCP - General Family Medicine 04/16/21 documented as of this encounter
--- OUTSIDE RECORDS SUMMARY | 2024-03-28 06:37 | XMS_ITS | Patient Health Record ---
Author Organization [facility] Address [address] [place] [address] Care Team Providers Care Mobile Application Developer Name Role Phone Reyes Colon Primary Care Provider Allergies Allergen (clinical drug ingredient) Drug/Non Drug Allergy documented on EMR Reaction Allergy Type Onset Date Status Penicillin anaphylaxis Drug Allergy Acti ve Reason For Referral No Information Medications Medication SIG (Take, Route, Frequency, Duration) Notes Start Date End Date Status diazePAM 5 MG 1 tablet as needed Orally Once a day for 30 days 12/23/2020 Not-Taking Depakote 125 MG 1 tablet Orally Twic e a day for 30 days 08/13/2020 Active Zoloft 50 MG Take one (1) tablet by mouth at bedtime Orally Once a day for 30 days Active hydrOXYzine Pamoate 25 MG 1 capsule thre e times a day as needed for anxiety Orally for 30 days 12/13/2022 Active Albuterol Sulfate HFA 108 (90 Base) MCG/ACT 1 puff as needed Inhalation every 4 hrs Active Social History Tobacco Use: Social History Observation Description Date Details (start date - stop date) Current Smoker NA - NA Dont use, Tobacco Use/Smoking Question Answer Notes Are you a current smoker Section Notes: SOCIAL HISTORY- Smoking history--- Smokes 3ppd Drug/alcohol use Substance Alcohol Denies use Marijuana Uses, whenever I can get it. cocaine In the past, last use 03/20/2019 Heroin Denies use Meth Denies use LSD/PCP Denies use IV drugs Denies use OTC/Rx drugs Denies use location- Born in [place] Current home location- Lives [place] Who lives at home? Lives with tati, their 1 son, and another son of lennon, and his tati's mother Siblings? Children? Has 1 sister and 2 children (age 4 and age 15 months-boys) Relationships? Has a good relationship with his mother (2-3 words) Describe childhood- My childhood was great. (physical/verbal/mental/sexual) Abuse/Trauma - Denies Education- 11th grade Occupation/Job history- Unemployed, has an application in at [employer] Hobbies/Interests- I don't have any anymore. I used to love outdoors and fishing. I am just too busy in my head. Social Activities-- Nothing really, I don't like talking to people. Spiritual Affiliation- [employer] Probation/Legal trouble/?- Denies No recent per [place] PDMP Problems Problem Type SNOMED Code ICD Code Onset Dates Problem Status W/U Status Risk Notes Problem Tobacco user (279227152) Nicotine dependence, unspecified, uncomplicated (F17.200) Active confirmed Problem 06622013 BARBY (generalized anxiety disorder) (F41.1) Active confirmed Problem 590793744 MDD (major depressive disorder), recurrent episode, moderate (F33.1) Active confirmed Problem Bipolar II disorder (32402396) Bipolar II disorder with or without full interepisode recovery (F31.81) Active confirmed Plan Of Treatment No Information Insurance Providers Payer Name Payer Address Payer Phone Subscriber Number Group Number Insured Name Patient Relationship to Insured Coverage Start Date Coverage End Date [employer] [address] [place] [address] [id number] Yaya Rubi Self - patient is the insured 1 [employer] [address] [place] [address] [id number] Yaya Rubi Self - patient is the insured 1 Medical (General) History Surgical History Surgery Date(Month/Year) tonsillectomy and adenoidectomy 1997 left knee surgery with 2 screws 2007 left knee surgery 2006
--- OUTSIDE RECORDS SUMMARY | 2024-03-28 06:37 | XMS_ITS | Encounter Summary ---
Author Organization [employer] Care Team Providers Care Interior Design Program Chair Name Role Phone Arleth Luevano APRN, CNP Primary Care Provider [phone] [phone] Encounter Details Date Type Department Care Team (Latest Contact Info) Description 05/04/2021 Travel Social History Tobacco Use Types Packs/Day [...] COVID-19? No / Unsure 05/04/2021 8:11 AM OPERATIONS TECH documented as of this encounter Plan of Treatment Not on file documented as of this encounter Visit Diagnoses Not on filedocumented in this encounter Additional Health Concerns Infection Onset Date Last Indicated Resolved Time COVID - 19 04/23/2021 04/23/2021 05/13/2021 12:1 6 AM OPERATIONS TECH documented as of this encounter Care Teams Interior Design Program Chair Relationship Specialty Start Date End Date Arleth Luevano APRN, CNP [address] [place], [place] [id number] PCP - General Family Medicine 04/16/21 documented as of this encounter
--- OUTSIDE RECORDS SUMMARY | 2024-03-28 06:37 | XMS_ITS | Encounter Summary ---
Author Organization [facility] Address [address] [place] [place] [address] Phone Care Team Providers Care Deicer Inspector Pneumatic Name Role Phone Arleth Luevano APRN, CHELA Primary Care Provider [phone] [phone] Encounter Details Date Type Department Care Team (Late Contact Info) Description 04/16/2021 Transcribe Orders [facility] Patient Access Admitting [address] [place] [id number] Arleth Luevano APRN, MILL OILER [address] [place] [address] Contact with and (suspected) exposure to covid-19 (Primary Dx) Social History Tobacco Use Types [...] documented as of this encounter Results * SARS-COV-2 BY MOLECULAR (04/16/2021 10:18 AM DEVICE TEST ENGINEER) SARSCOV2 NOT DETECTED (Referen ce Range for this test is Not Detected ) [facility] THERMOFISHER FAST DX 04/17/2021 12:10 AM DEVICE TEST ENGINEER [facility] Comment:This test was perfor med by a RT-PCR method. Other NASAL STRUCTURE / Unknown Non-Phlebotomy Collection / Unknown 04/16/2021 10:18 AM DEVICE TEST ENGINEER 04/16/2021 10:40 AM DEVICE TEST ENGINEER Narrative [facility] - 04/17/2021 12:10 AM DEVICE TEST ENGINEER Authorized Fact Sheets about this test for providers and patients are available at: https://www.fda.gov/medical-devices/wiphjfnxn-pmpjbkybuc-krrkgdj-devices/emergen -us e-authorizations us Arleth Luevano APRN, CNP MICROBIOLOGY - GENERAL OR DERABLES Final Result [facility] [address] [place] [address], documented in this encounter Visit Diagnoses Diagnosis Contact with and (suspected) exposure to covid-19- Primary documented in this encounter Care Teams Deicer Inspector Pneumatic Relationship Specialty Start Date End Date Arleth Luevano APRN, CNP [address] [place] [address] PCP - General Family Medicine 04/16/21 documented as of this encounter
--- OUTSIDE RECORDS SUMMARY | 2024-03-28 06:37 | XMS_ITS | Encounter Summary ---
Author Organization [facility] Address [address] [place] [address] Phone Care Team Providers Care Industrial Twisting Machine Operator Name Role Phone Arleth Luevano APRN, CNP Primary Care Provider [phone] [phone] Reason for Referral * Radiology Services (Routine) - Closed Specialty Diagnoses / Procedures Referred By Contac t Referred To Contact Radiology Diagnoses Acute pain of left knee Procedures XR KNEE 3 VIEWS LEFT Arleth Luevano APRN, CNP [address] [place] [address] Phone: tel: fax: Referral ID Status Reason Start Date Expiration Date Visits Re quested Visits Authorized [id number] Closed 12/07/2022 1 1 * Radiology Services (Routine) - Closed Specialty Diagnoses / Procedures Referred By Contac t Referred To Contact Radiology Diagnoses Cough, unspecified type Procedures XR CHEST 2 VIEWS Arleth Luevano APRN, CNP [address] [place] [address] Phone: tel: fax: Referral ID Status Reason Start Date Expiration Date Visits Re quested Visits Authorized [id number] Closed 12/07/2022 1 1 Reason for Visit * Radiology Services (Routine) - Closed Specialty Diagnoses / Procedures Referred By Contac t Referred To Contact Radiology Diagnoses Cough, unspecified type Procedures XR CHEST 2 VIEWS Arleth Luevano APRN, CHELA [address] [place] [address] Phone: tel: fax: Referral ID Status Reason Start Date Expiration Date Visits Re quested Visits Authorized [id number] Closed 12/07/2022 1 1 Encounter Details Date Type Department Care Team (Latest Contact Info) Description 12/08/2022 10:38 AM CDT - 12/08/2022 11:59 PM CDT Hospital Encounter [facility] Diagnostic Radiology [address] [place] [address] Arleth Luevano APRN, CNP [address] [place] [address] Discharge Disposition: Discharged to home or Selfcare [...] AM CDT documented as of this encounter Medications at Time of Discharge [...] Tab 02/12/2019 documented as of this encounter Plan of Treatment Not on file documented as of this encounter Procedures Procedure Name Priority Date/Time Associated Diagnosis Comments XR KNEE 3 VIEWS LEFT Routine 12/08/2022 10:51 AM CDT Acute pain of left knee XR CHEST 2 VIEWS Routine 12/08/2022 10:5 1 AM CDT Cough, unspecified type documented in this encounter Results * XR KNEE 3 VIEWS LEFT (12/08/2022 10:51 AM CDT) Anatomical Region Laterality Modality LOWER EXTREMITY, knee Left Digital Ra diography 12/10/2022 2:01 AM CDT Impressions 12/10/2022 2:03 AM CDT IMPRESSION: No acute osseous abnormality. Narrative 12/10/2022 2:03 AM CDT EXAM DESCRIPTION: XR KNEE 3 VIEWS LEFT REASON FOR STUDY: surg 2007 and 2008. mcl and acl repair. ??Acute left knee [...] AM T: ??12/10/2022 2:01 AM Report ID: [id number] Reading Location: ??[id number] Procedure Note Reyes Rice MD - 12/10/2022 EXAM DESCRIPTION: XR KNEE 3 VIEWS LEFT REASON FOR STUDY: surg 2007 and 2008. mcl and acl repair. Acute left knee [...] Reyes Rice M.D. KT: ROSA Report ID: [id number] Reading Location: [id number] IMPRESSION: No acute osseous abnormality. us Arleth Luevano DRY CELL AND BATTERY ASSEMBLER, WASTE TRANSPORTATION TECHNICIAN IMG DIAGNOSTIC ORDERABLES Final Result * XR CHEST 2 VIEWS (12/08/2022 10:51 [...] AM T: ??12/10/2022 2:01 AM Report ID: [id number] Reading Location: ??[id number] Procedure Note Reyes Rice MD - 12/10/2022 [...] Reyes Rice M.D. KT: ROSA Report ID: [id number] Reading Location: [id number] IMPRESSION: No acute cardiopulmonary abnormality. Arleth Luevano APRN, CNP IMDejuan DIAGNOSTIC ORDERABLES Final Result documented in this encounter Visit Diagnoses Diagnosis Cough, unspecified type Acute pain of left knee documented in this encounter Care Teams Industrial Twisting Machine Operator Relationship Specialty Start Date End Date Arleth Luevano APRN, CNP [address] [place] [address] PCP - General Family Medicine 04/16/21 documented as of this encounter
--- OUTSIDE RECORDS SUMMARY | 2024-03-28 06:37 | XMS_ITS | Encounter Summary ---
Author Organization [facility] Address [address] [place] [address] Phone Care Team Providers Care Leader Writer Name Role Phone Arleth Luevano APRN, CHELA Primary Care Provider [phone] [phone] Encounter Details Date Type Department Care Team (Late st Contact Info) Description 04/16/2021 Transcribe Orders [facility] Central Scheduling [address] [place] [id number] Arleth Luevano APRN, TABLE GAMES FLOOR SUPERVISOR [address] [place] [address] Exposure to 2019 novel coronavirus (Primary Dx) Social History Tobacco Use Types [...] have Coronavirus / COVID-19? No / Unsure 04/16/2021 9:59 AM MELTER OPERATOR documented as of this encounter Plan of Treatment Not on file documented as of this encounter Visit Diagnoses Diagnosis Exposure to 2019 novel coronavirus- Primary documented in this encounter Additional Health Concerns Infection Onset Date Last Indicated Resolved Time COVID - 19 04/23/2021 04/23/2021 05/13/2021 12:1 6 AM MELTER OPERATOR documented as of this encounter Care Teams Leader Writer Relationship Specialty Start Date End Date Arleth Luevano APRN, CHELA [address] [place] [id number] PCP - General Family Medicine 04/16/21 documented as of this encounter
--- OUTSIDE RECORDS SUMMARY | 2024-03-28 06:37 | XMS_ITS | Encounter Summary ---
Author Organization [employer] Care Team Providers Care Cellular Phone Repairer Name Role Phone Arleth Luevano APRN, CNP Primary Care Provider [phone] [phone] Encounter Details Date Type Department Care Team (Latest Contact Info) Description 04/16/2021 Travel Social History Tobacco Use Types Packs/Day [...] COVID-19? No / Unsure 04/16/2021 9:59 AM MISSIONARY COORDINATOR documented as of this encounter Plan of Treatment Not on file documented as of this encounter Visit Diagnoses Not on filedocumented in this encounter Care Teams Cellular Phone Repairer Relationship Specialty Start Date End Date Arleth Luevano APRN, CNP [address] [place] [address] PCP - General Family Medicine 04/16/21 documented as of this encounter
--- OUTSIDE RECORDS SUMMARY | 2024-03-28 06:37 | XMS_ITS | Clinical Summary ---
Author Organization [facility] Address [address] [place] [address] Phone Care Team Providers Care Tail Dogger Name Role Phone Luevano, Arleth STREET CNP Primary Care Provider [phone] [phone] Allergies Active Allergy Reactions Criticality Noted Date Comments Penicillins Hives 02/12/2019 Medications ibuprofen (MOTRIN) 600 MG Tablet Take 1 Tab by mouth every 8 hours. 30 Tab 9 Active traMADol (ULTRAM) 50 MG Tablet Take 1 Tab by mouth every 6 hours as needed for Moderate or more severe pain. 15 Tab 9 Active Additional Information Patient not taking.Reported on 03/07/2019 ondansetron (ZOFRAN) 4 MG Tablet Take 1 Tab by mouth every 8 hours as needed for Nausea - 1st line. 10 Tab 9 Active dicyclomine (BENTYL) 20 MG Tablet Take 1 Tab by mouth every 6 hours. 30 Tab 9 Active HYDROcodone-tarun taminophen (NORCO) 5-325 MG Tablet Take 1 Tab by mouth every 8 hours as needed for Moderate or more severe pain. 90 Tab 0 Active divalproex (Depakote) 125 MG Tablet Delayed Response Take 125 mg by mouth 2 times daily. Active ibuprofen (MOTRIN) 600 MG Tablet Take 1 Tab by mouth every 8 hours as needed for Moderate or more severe pain. 60 Tab 0 Active predniSONE (DELTASONE) 50 MG Tablet Take 1 Tab by mouth daily. 4 Tab 0 Active ibuprofen (MOTRIN) 600 MG Tablet Take 1 Tablet by mouth every 6 hours as needed for Moderate or more severe pain or Fever. 60 Tablet 1 Active diazePAM (VALIUM PO) Take by mouth. Act jarad SUMAtriptan (Imitrex) 25 MG Tablet Take 1 Tablet by mouth once as needed for Migraine for up to 1 dose. Use as directed. May repeat dose in 2 hours if headache recurs. 9 Tablet 1 Active ondansetron (ZOFRAN) 4 MG Tablet Take 1-2 Tablets by mouth every 8 hours as needed for Nausea - 1st line. 20 Tablet 2 Active dicyclomine (BENTYL) 20 MG Tablet Take 1 Tablet by mouth every 6 hours. 30 Tablet 2 Active diclofenac (VOLTAREN) 50 MG Tablet Delayed Response Take 1 Tablet by mouth 2 times daily. 30 Tablet 4 Active Social History Tobacco Use Types Packs/Day Years Used Date Smoking Tobacco: Every Day Cigarettes Smokeless Tobacco: Never Tobacco Cessation:Ready to Q uit: Yes; Counseling Given: Yes Alcohol Use Standard Drinks/Week Comments Not Currently [...] on file Sexual Orientation Not on file Last Filed Vital Signs Vital Sign Reading Time Taken Comments Blood Pressure 139/68 10/28/2023 1:45 PM CDT Pulse 83 10/28/2023 1:45 PM CDT Temperature 35.8 ??C (96.4 ??F) 10/28/2023 9:33 AM CD T Respiratory Rate 18 10/28/2023 1:45 PM CDT Oxygen Saturation 100% 10/28/2023 1:45 PM CDT Inhaled Oxygen Concentration - - Weight 93 kg (205 lb) 10/28/2023 9:33 AM CDT Height 180.3 cm (5' 11 ) 10/28/2023 9:33 AM CDT Body Mass Index 28.59 10/28/2023 9:33 AM CDT Plan of Treatment Health Maintenance Due Date Last Done Comments Hepatitis C Virus (HCV) Screening 1989 TdaP Immunization 1989 Pneumococcal Immunization Combined (2 of 2 - PCV) 02/01/2007 02/01/2006 Influenza Immunization (#1) 2023 01/24/2004, 1 SARS-COV-2 Immunization (3 - season) 2023 05/28/2021, 04/30/2021 Respiratory Syncytial Virus (RSV) Immunization (Adult) (1 - 1-dose 75+ series) 2064 Hepatitis B Immunization Completed 997, 05/08/1996, 03/13/1996 DTaP/Tdap/Td Immunization Discontinued 2000, 04/21/2000, 10/21/1993, Additional history exists Meningococcal Immunization (ACWY) Aged Out No longer eligible based on patient's age to complete this topic Rotavirus Immunization Aged Out No lo nger eligible based on patient's age to complete this topic Insurance MEDICAID [place] Care Teams Tail Dogger Relationship Specialty Start Date End Date Luevano, YENIFER Reinoso, CHELA [address] [place] [id number] PCP - General Family Medicine 04/16/21
--- OUTSIDE RECORDS SUMMARY | 2024-03-28 06:37 | XMS_ITS | Encounter Summary ---
Author Organization [facility] Address [address] [place] [address] Phone Care Team Providers Care Asphalt Mixing Machine Operator Name Role Phone Dasha Mary APRN, RANGER AIDE Primary Care Provider Reason for Visit * Reason Comments Back Pain Encounter Details Date Type Department Care Team (Late st Contact Info) Description 10/29/2019 8:46 AM CDT - 10/29/2019 10:35 AM CDT Emergency [facility] [address] [place] [address] Rudy Trevino MD Sciatica of left side Discharge Disposition: Discharged to home or Selfcare [...] Sign Reading Time Taken Comments Blood Pressure 130/71 10/29/2019 10:30 AM CDT Pulse 62 10/29/2019 10:30 AM CDT Temperature 37 ??C (98.6 ??F) 10/29/2019 8:52 AM CDT Respiratory Rate 18 10/29/2019 10:30 AM CDT Oxygen Saturation 96% 10/29/2019 10:30 AM CDT Inhaled Oxygen Concentration - - Weight 72.6 kg (160 lb) 10/29/2019 8:52 AM CDT Height 180.3 cm (5' 11 ) 10/29/2019 8:52 AM CDT Body Mass Index 22.32 10/29/2019 8:52 AM CDT documented in this encounter Discharge Instructions * Attachments The following attachments cannot be sent through Care Everywhere. * Lumbar Radiculopathy, Understanding (Tajik) documented in this encounter Medications at Time [...] or more severe pain. 15 Tab 02/12/2019 cyclobenzaprine (FLEXERIL) 10 MG Tablet Take 0.5 Tabs by mouth 3 times daily as needed for Muscle spasms for up to 14 days. This medicine 15 Tab 10/29/2019 11/12/2019 documented as of this encounter ED Notes * Angela Vasquez RN - 10/29/2019 10:34 AM CDT Patient discharged. Discharge instructions and patient educational material reviewed with patient; questions and concerns addressed; patient verbalizes understanding, using teach back. Patient was given 3 prescriptions. Patient was informed no drinking alcohol, driving or operating heavy machinery while taking narcotics or muscle relaxants. Patient discharged per ambulatory mode with self as responsible alliance party. * Angela Vasquez RN - 10/29/2019 10:26 AM CDT Pt medicated per provider orders. Pt educated on intended effects and side effects of medication and verbalized understanding, able to provide teach back of education. * Rudy Trevino MD - 10/29/2019 10:23 AM CDT Chief Complaint Patient presents with ??? Back Pain The patient is a 29-year-old male who presents the emergency department with complaints of low backpain which she has had since this past October 24. He had atraumatic onset of this after running around in a van with his cousin. The pain has waxed and waned since then. This morning it isradiating down his left leg to his left knee. He has not associated with any fevers, chills, or bowel or bladder dysfunction. He rates the pain at about 8/10 in severity. He did take some ibuprofen for yesterday which achieved modest benefit. He denies weakness or numbness. No current facility-administered medications for this encounter. Current Outpatient Medications Medication Sig Dispense Refill ??? cyclobenzaprine (FLEXERIL) 10 MG Tablet Take 0.5 Tabs by mouth 3 times daily as needed for Muscle spasms for up to 14 days. This medicine 15 Tab 0 ??? dicyclomine (BENTYL) 20 MG Tablet [...] by mouth daily. 4 Tab 0 ??? traMADol (ULTRAM) 50 MG Tablet [...] file Occupational History ??? Not on file Social Needs ??? Financial resource strain: Not on file ??? Food insecurity Worry: Not on file Inability: Not on file ??? Transportation needs Medical: Not on file Non-medical: Not on file Tobacco Use ??? Smoking status: Current Every Day Smoker Packs/day: 1.00 Types: Cigarettes ??? Smokeless tobacco: Never Used Substance and Sexual Activity ??? Alcohol use: Not Currently Frequency: Never ??? Drug use: Not Currently ??? Sexual activity: Not on file Lifestyle ??? Physical activity Days per week: Not on file Minutes per session: Not on file ??? Stress: Not on file Relationships ??? Social connections Talks on phone: Not on file Gets together: Not on file Attends mormon service: Not on file Active member of club or organization: Not on file Attends meetings of clubs or organizations: Not on file Relationship status: Not on file ??? Intimate partner violence Fear of current or ex partner: Not on file Emotionally abused: Not on file Physically abused: Not on file Forced sexual activity: Not on file Other Topics Concern ??? Not on file Social History Narrative ??? Not on file BP 130/71 Pulse 62 Temp 98.6 ??F (37 ??C) (Temporal) Resp 18 Ht 5' 11 (1.803 m) Wt 160 lb (72.6 kg) SpO2 96% BMI 22.32 kg/m?? Review of Systems Constitutional: Negative. Respiratory: Negative. Cardiovascular: Negative. Gastrointestinal: Negative. Genitourinary: Negative. Musculoskeletal: Positive for back pain and myalgias. Neurological: Negative. All other systems reviewed and are negative. Physical Exam Vitals signs and nursing note reviewed. Constitutional: General: He is not in acute distress. Appearance: Normal appearance. He is normal weight. HENT: Head: Normocephalic and atraumatic. Nose: Nose normal. Mouth/Throat: Mouth: Mucous membranes are moist. Pharynx: Oropharynx is clear. Eyes: Extraocular Movements: Extraocular movements intact. Conjunctiva/sclera: Conjunctivae normal. Pupils: Pupils are equal, round, and reactive to light. Neck: Musculoskeletal: Normal range of motion. Cardiovascular: Rate and Rhythm: Normal rate and regular rhythm. Heart sounds: Normal heart sounds. No murmur. Pulmonary: Effort: Pulmonary effort is normal. No respiratory distress. Breath sounds: Normal breath sounds. No wheezing or rales. Abdominal: General: Bowel sounds are normal. Palpations: Abdomen is soft. Tenderness: There is no abdominal tenderness. There is no guarding or rebound. Musculoskeletal: Normal range of motion. Skin: General: Skin is warm and dry. Findings: No rash. Comments: Positive straight leg raise bilaterally at about 30?? Neurological: General: No focal deficit present. Mental Status: He is alert and oriented to person, place, and time. Mental status is at baseline. Psychiatric: Mood and Affect: Mood normal. Procedures Imaging Results None MDM Coding Clinical Impression 1. Sciatica of left side The patient remained stable throughout their ED stay. My clinical impression was discussed with thepatient/family. I gave them the opportunity to ask questions, and addressed them as completely as possible given the information available at present. The therapeutic plan was discussed, instructionswere given and the importance of primary care follow up was stressed and encouraged. The patient/family voiced understanding of the plan, indications to return, and the need for follow up. * Angela Vasquez RN - 10/29/2019 10:14 AM CDT Patient sleeping on stretcher. Call light within reach. Mother at bedside. Will continue to monitor. * Angela Vasquez RN - 10/29/2019 9:49 AM CDT Patient resting on stretcher with no requests at this time. Informed patient that doctor will be into see him soon. Patient states understanding. Mother at bedside. Call light within reach. * Angela Vasquez RN - 10/29/2019 8:56 AM CDT Patient presents to ED room 7. No change in patients condition since triage note written. See triage note. Assessment as noted. Call light within reach. Mother at bedside. Will continue to monitor. * Angela Vasquez RN - 10/29/2019 8:55 AM CDT Patient presents to ED room 7 via wheelchair with complaints of medial lower back pain onset this past . Denies any known injury. States that pain shoots down left leg. documented in this encounter Plan of Treatment Not on file documented as of this encounter Visit Diagnoses Diagnosis Sciatica of left side- Primary Sciatica documented in this encounter Administered Medications Inactive Administered Medications - up to 3 most recent administrations Medication Order MAR Action Action Date Dose Rate Site acetaminophen (TYLENOL) tablet 650 mg 650 mg, Oral, ONCE, 1 dose, On 10/29/19 at 1100, Maximum dose of acetaminophen is 4000 mg from all sources in 24 hours. Given 10/29/2019 10:25 AM CDT 650 mg ibuprofen (MOTRIN) tablet 600 mg 600 mg, Oral, ONCE, 1 dose, On Tue10/29/19 at 1100 Given 10/29/2019 10:26 AM CDT 600 mg predniSONE (DELTASONE) tablet 50 mg 50 mg, Oral, ONCE, 1 dose, On Tue10/29/19 at 1100 Given 10/29/2019 10:26 AM CDT 50 mg documented in this encounter Active and Recently Administered Medications Times are shown in CDT. Scheduled Medication Order 10/27/2019 10/28/2019 10/29/2019 acetaminophen (TYLENOL) tablet 650 mg (COMPLETED) 650 mg, Oral, ONCE, 1 dose, On Tue10/29/19 at 1100, Maximum dose of acetaminophen is 4000 mg from all sources in 24 hours. 1025 (Given - Provid er: Angela Vasquez RN) ibuprofen (MOTRIN) tablet 600 mg (COMPLETED) 600 mg, Oral, ONCE, 1 dose, On Tue10/29/19 at 1100 1026 (Given - Provid er: Angela Vasquez RN) predniSONE (DELTASONE) tablet 50 mg (COMPLETED) 50 mg, Oral, ONCE, 1 dose, On Tue10/29/19 at 1100 1026 (Given - Provid er: Angela Vasquez RN) documented in this encounter Care Teams Asphalt Mixing Machine Operator Relationship Specialty Start Date End Date Dasha Mary APRN, RANGER AIDE [address] [place] [address] PCP - General Advanced Practice Nurse 03/07/19 documented as of this encounter
--- OUTSIDE RECORDS SUMMARY | 2024-03-28 06:37 | XMS_ITS | Encounter Summary ---
Author Organization [facility] Address [address] [place] [address] Phone Care Team Providers Care Certified Coding Specialist Name Role Phone Arleth Luevano APRN, CNP Primary Care Provider [phone] Reason for Visit * Reason Comments Abdominal Pain Encounter Details Date Type Department Care Team (Late st Contact Info) Description 10/28/2023 9:27 AM CDT - 10/28/2023 1:52 PM CDT Emergency [facility] Emergency [address] [place] [address] Lisa Silva APRN, AUTOMATIC SERGING MACHINE OPERATOR [address] [place] [address] Cholelithiasis Discharge Disposition: Discharged to home or Selfcare [...] Mass Index 28.59 10/28/2023 9:33 AM CDT documented in this encounter Discharge Instructions * Discharge Instructions* Lisa Silva APRN, CNP - 10/28/2023 1:46 PM CDT Follow-up with PCP. documented in this encounter Medications at Time [...] as of this encounter ED Notes * Joselyn Thomason RN - 10/28/2023 1:52 PM CDT Patient discharged. Discharge instructions and patient educational material reviewed with patient; questions and concerns addressed; patient verbalizes understanding, using teach back. Patient was given 0 prescriptions. Patient discharged per ambulatory mode with self as responsible republican. SL D/C'ed with Chris cath intact. * Joselyn Thomason RN - 10/28/2023 1:45 PM CDT Provider at bedside discussing test results and discharge instructions. * Joselyn Thomason RN - 10/28/2023 1:00 PM CDT Ultrasound at bedside. * Joselyn Thomason RN - 10/28/2023 12:37 PM CDT Provider at bedside discussing test results and informed that she will be ordering the pt an ultrasound. Pt states that he is okay with getting ultrasound done, but needs to leave in a 1-2 hours to lemon picker his child. * Joselyn Thomason RN - 10/28/2023 11:58 AM CDT Pt uses call light to verbalizes that he was able to use urinal and provide a urine sample. Pt states that he is feeling much better and is comfortably on his phone. Call light remains within reach and pt verbalizes understanding his wait. * Joselyn Thomason RN - 10/28/2023 10:33 AM CDT Pt transporting to CT. * Joselyn Thomason RN - 10/28/2023 10:29 AM CDT Pt medicated per provider orders. Pt educated on intended effects and side effects of medication and verbalized understanding, able to provide teach back of education. * Lisa Silva APRN, AUTOMATIC SERGING MACHINE OPERATOR - 10/28/2023 10:03 AM CDT Chief Complaint Patient presents with Abdominal Pain Yaya Rubi is a 33 y.o. male who presents to the ED c/o left-sided abdominal pain starting on Tuesday. Patient states that his pain is intermittent and describes the pain as sharp and stabbing.He states that he had nausea and vomiting on Tuesday. He states that the nausea and vomiting resolved but he developed diarrhea yesterday. He denies any blood in the stool or vomit. States that he went to [facility] for work note but was referred here. He denies recent fevers. Denies any pertinent past medical history. No past medical history on file. No current facility-administered medications for this encounter. [...] Tab 0 Allergies Allergen Reactions Penicillins Hives No past medical history on file. Past Surgical History: Procedure Laterality Date KNEE SURGERY TONSILLECTOMY Social History Socioeconomic History Marital status: Single Spouse name: Not on file Number of children: Not on file Years of education: Not on file Highest education level: Not on file Occupational History Not on file Tobacco Use Smoking status: Every Day Current packs/day: 1.00 Types: Cigarettes Smokeless tobacco: Never Vaping Use Vaping status: Some Days Substance and Sexual Activity Alcohol use: Not [...] file Housing Stability: Not on file BP 126/68 Pulse 54 Temp (!) 96.4 ??F (35.8 ??C) (Tympanic) Resp 18 Ht 5' 11 (1.803 m) Wt205 lb (93 kg) SpO2 100% BMI 28.59 kg/m?? Review of Systems Constitutional: Negative for chills and fever. HENT: Negative for congestion, ear pain, rhinorrhea and sore throat. Eyes: Negative for discharge. Respiratory: Negative for cough, chest tightness, shortness of breath and wheezing. Cardiovascular: Negative for chest pain and palpitations. Gastrointestinal: Positive for abdominal pain, diarrhea, nausea and vomiting. Genitourinary: Negative for flank pain and testicular pain. Musculoskeletal: Negative for back pain and myalgias. Skin: Negative for rash and wound. Neurological: Negative for syncope, weakness, numbness and headaches. All other systems reviewed and are negative. Physical Exam Vitals and nursing note reviewed. Constitutional: General: He is not in acute distress. Appearance: He is well-developed. He is not diaphoretic. HENT: Head: Normocephalic and atraumatic. Eyes: Pupils: Pupils are equal, round, and reactive to light. Neck: Thyroid: No thyromegaly. Cardiovascular: Rate and Rhythm: Normal rate and regular rhythm. Heart sounds: Normal heart sounds. No murmur heard. Pulmonary: Effort: Pulmonary effort is normal. No respiratory distress. Breath sounds: Normal breath sounds. No wheezing, rhonchi or rales. Chest: Chest wall: No tenderness. Abdominal: General: Bowel sounds are normal. There is no distension. Palpations: Abdomen is soft. There is no mass. Tenderness: There is abdominal tenderness in the left upper quadrant and left lower quadrant. Thereis no guarding or rebound. Musculoskeletal: General: No tenderness. Normal range of motion. Cervical back: Normal range of motion and neck supple. Lymphadenopathy: Cervical: No cervical adenopathy. Skin: General: Skin is warm and dry. Coloration: Skin is not pale. Findings: No erythema or rash. Neurological: Mental Status: He is alert and oriented to person, place, and time. Cranial Nerves: No cranial nerve deficit. Psychiatric: Behavior: Behavior normal. Procedures Recent Results (from the past 24 hour(s)) Comprehensive Metabolic Panel (Cmp) [id number] Result Value Ref Range SODIUM 141 136 - 145 mmol/L POTASSIUM 3.7 3.5 - 5.1 mmol/L CHLORIDE 107 98 - 107 mmol/L CO2, VENOUS 25 22 - 30 mmol/L ANION GAP 12.7 <18.0 mmol/L GLUCOSE 110 (H) 70 - 99 mg/dL BUN 9 9 - 21 mg/dL CREATININE, BLOOD 0.84 0.70 - 1.30 mg/dL BUN/CREATININE RATIO 11 (L) 12 - 20 ratio TOTAL PROTEIN 7.3 6.3 - 8.2 g/dL ALBUMIN 4.7 3.5 - 5.0 g/dL A/G RATIO 1.8 1.0 - 2.2 CALCIUM 9.5 8.7 - 10.5 mg/dL T BILI 0.5 0.2 - 1.2 mg/dL SGOT (AST) 13 5 - 34 U/L SGPT (ALT) 15 0 - 55 U/L ALKALINE PHOSPHATASE 85 40 - 150 U/L GFR, ESTIMATED >60 >=60 GFR, EST. >60 >=60 GFR, EST. NONAFRICAN >60 >=60 Lipase [id number] Result Value Ref Range LIPASE 26 8 - 78 U/L CBC with Auto Differential Result Value Ref Range WBC 11.43 4.00 - 12.00 10(3)/mcL RBC 5.30 4.40 - 5.80 10(6)/mcL HEMOGLOBIN (HGB) 15.8 13.0 - 16.5 g/dL HEMATOCRIT (HCT) 46.4 38.0 - 50.0 % MCV 87.5 82.0 - 96.0 fL MCH 29.8 26.0 - 32.0 pg MCHC 34.1 31.0 - 36.0 g/dL PLATELET COUNT 272 140 - 440 10(3)/mcL RDW 13.3 11.8 - 15.5 % MPV 9.3 8.0 - 12.6 fL NEUTROPHILS 66.9 40.0 - 68.0 % LYMPHOCYTES 20.8 19.0 - 49.0 % MONOCYTES 7.7 3.0 - 13.0 % EOSINOPHILS 3.8 0.0 - 8.0 % BASOPHILS 0.8 0.0 - 1.0 % ABSOLUTE NEUTROPHILS 7.65 (H) 1.40 - 5.30 10(3)/mcL ABSOLUTE LYMPHOCYTES 2.38 0.90 - 3.30 10(3)/mcL ABSOLUTE MONOCYTES 0.88 0.10 - 0.90 10(3)/mcL ABSOLUTE EOSINOPHIL 0.43 0.00 - 0.50 10(3)/mcL ABSOLUTE BASOPHILS 0.09 0.00 - 0.10 10(3)/mcL NRBC PER 100 WBC 0 URINALYSIS REFLEX IF INDICATED BY ABNORMAL RESULTS Result Value Ref Range SPECIFIC GRAVITY 1.005 1.003 - 1.030 URINE PH 8.0 5.0 - 9.0 WBC ESTERASE Negative Negative NITRITE Negative Negative PROTEIN, RANDOM URINE 15 mg/dL (A) Negative URINE GLUCOSE, QUAL Negative Negative URINE KETONES Negative Negative UROBILINOGEN Normal Normal mg/dL URINE BLOOD Negative Negative erika/ul URINALYSIS COLOR Yellow URINALYSIS CLARITY Clear Imaging Results US ABDOMEN LIMITED LEVEL 3 THREE ORGAN (Final result) Result time 10/28/23 13:44:26 Procedure changed from US ABDOMEN COMPLETE Final result by Paulino Salomon MD (10/28/23 13:44:26) Impression: IMPRESSION: 2 gallstones identified without wall thickening or tenderness to suggest acute cholecystitis. No biliary ductal dilatation. Narrative: EXAM DESCRIPTION: US ABDOMEN LIMITED LEVEL 3 THREE ORGAN REASON FOR STUDY: gallstone with abdominal pain for 4 days. TECHNIQUE: Ultrasound of the right upper quadrant of the abdomen was performed with grayscale and color doppler. COMPARISON: 10/28/2023 CT scan suggesting gallstone and gallbladder wall thickening. FINDINGS: PANCREAS: Visualized portions of the pancreas are within normal limits. Portions of the pancreatic body and tail are obscured due to bowel gas. LIVER: The liver appears normal in echotexture and echogenicity. No focal lesion identified. The main portal vein is patent with antegrade flow. GALLBLADDER: Distended containing 2 echogenic foci consistent with stones casting posterior acoustical shadows. 1 is mobile measuring 2.1 cm non mobile stone measures 1.7 cm. Gallbladder wall demonstrates a thickness of 0.2 cm, within normal range. No adjacent fluid or adjacent hepatic edema. No tenderness reported while scanning the fundus. BILIARY: There is no intrahepatic or extrahepatic biliary ductal dilatation. Common bile duct measures 0.5 cm in diameter. RIGHT KIDNEY: Normal size. Normal echogenicity. No solid mass or cyst. No hydronephrosis. Measures 11.2 cm in length. OTHER: No other significant findings. THIS IS AN ELECTRONICALLY VERIFIED FINAL REPORT 10/28/2023 1:42 PM - Electronically signed by Paulino Salomon M.D. RB: SOSA Report ID: [id number] Reading Location: [place] [address] US ABDOMEN COMPLETE (Canceled) CT ABDOMEN PELVIS W/ CONTRAST (Final result) Result time 10/28/23 11:36:44 Final result by Georgia Patrick MD (10/28/23 11:36:44) Impression: IMPRESSION: 2 cm coarsely calcified gallstone in the neck of the gallbladder with possible slight thickening of the gallbladder wall. Ultrasound correlation is suggested. Otherwise, no definable abnormality of the abdomen or pelvis. Bilateral lower lobe atelectasis-infiltrate. Please correlate with clinical factors. Narrative: EXAM DESCRIPTION: CT ABDOMEN PELVIS W/ CONTRAST REASON FOR STUDY: LLQ abdominal pain for 4 days. N/V on Tuesday, but since resolved. Diarrhea starting yesterday. Smoker TECHNIQUE: CT scan of the abdomen and pelvis performed with intravenous and without oral contrast using helical scanning technique with dynamic intravenous contrast injection. Reconstructed coronal and sagittal MPR images reviewed. All images stored on PACS. Automated exposure control was used as a dose optimization technique for this examination. CONTRAST TYPE/DOSE: 100mL of IOPAMIDOL 76 % IV SOLN injected via Intravenous COMPARISON: No comparison. FINDINGS: LOWER CHEST: Areas of infiltrate-consolidation in the lower lung luevano bilaterally in keeping with atelectasis-infiltrate. No definable pleural effusion. Included lung bases otherwise are grossly normal.. LIVER: Normal size. No identified cystic or solid masses. GALLBLADDER: There is a 2 cm coarsely calcified lucent centered gallstone within the neck of the gallbladder. Possible slight thickening of the gallbladder wall. Would recommend ultrasound for correlation. BILE DUCTS: No intrahepatic or extrahepatic ductal dilatation. SPLEEN: Normal size. No focal lesions. PANCREAS: No identified cystic or solid masses. No significant calcifications. No adjacent inflammation or peripancreatic fluid collections. Pancreatic duct not dilated. ADRENALS: Normal. KIDNEYS/URINARY TRACT: No identified significant cystic or solid masses. No visualized stones. No hydronephrosis or hydroureter. Symmetric enhancement. Urinary bladder is unremarkable. GI: No dilated bowel loops. No obvious wall thickening. Normal appendix. No significant diverticular disease. PERITONEUM: No ascites or free air. RETROPERITONEUM: No mass or adenopathy. REPRODUCTIVE: No significant abnormality. VASCULATURE: No abdominal aortic aneurysm. MUSCULOSKELETAL: No significant abnormality. OTHER: No other abnormality. THIS IS AN ELECTRONICALLY VERIFIED FINAL REPORT 10/28/2023 11:34 AM - Electronically signed by Kamlesh Patrick M.D. LC: SHANTHI Report ID: [id number] Reading Location: [place] [address] Labs Reviewed CMP (COMPREHENSIVE METABOLIC PANEL) - Abnormal; Notable for the following components: Result Value GLUCOSE 110 (*) BUN/CREATININE RATIO 11 (*) All other components within normal limits URINALYSIS REFLEX IF INDICATED BY ABNORMAL RESULTS - Abnormal; Notable for the following components: PROTEIN, RANDOM URINE 15 mg/dL (*) All other components within normal limits CBC WITH AUTO DIFFERENTIAL - Abnormal; Notable for the following components: ABSOLUTE NEUTROPHILS 7.65 (*) All other components within normal limits LIPASE - Normal COMPLETE BLOOD COUNT (CBC) WITH DIFF Narrative: The following orders were created for panel order CBC with Diff [id number]. Procedure Abnormality Status --------- ------ CBC with Auto Differential[[id number]] Abnormal Final result Please view results for these tests on the individual orders. EXTRA TUBES Narrative: The following orders were created for panel order Extra Tubes. Procedure Abnormality Status --------- ------ Blue Top Tube[[id number]] Final result Gold Top Tube[[id number]] Final result Please view results for these tests on the individual orders. BLUE TOP TUBE GOLD TOP TUBE US ABDOMEN LIMITED LEVEL 3 THREE ORGAN Final Result IMPRESSION: 2 gallstones identified without wall thickening or tenderness to suggest acute cholecystitis. No biliary ductal dilatation. URINALYSIS REFLEX IF INDICATED BY ABNORMAL RESULTS Final Result CT ABDOMEN PELVIS W/ CONTRAST Final Result IMPRESSION: 2 cm coarsely calcified gallstone in the neck of the gallbladder with possible slight thickening of the gallbladder wall. Ultrasound correlation is suggested. Otherwise, no definable abnormality of the abdomen or pelvis. Bilateral lower lobe atelectasis-infiltrate. Please correlate with clinical factors. CBC with Diff [id number] Final Result Comprehensive Metabolic Panel (Cmp) [id number] Final Result Lipase [id number] Final Result Extra Tubes Final Result Medical Decision Making Amount and/or Complexity of Data Reviewed External Data Reviewed: labs and radiology. Labs: ordered. Radiology: ordered. Clinical Impression 1. Cholelithiasis Disposition: Discharge Differential diagnosis for left lower quadrant abdominal pain includes common etiologies such as diverticulitis, gastroenteritis, constipation, inguinal or femoral hernia, mesenteric adenitis and urethral lithiasis as well as less common etiology such ovarian etiologies and female, testicular etiologies in males, abdominal aortic aneurysm, intestinal ischemia and musculoskeletal pain Labs are relatively unremarkable. IMPRESSION: 2 cm coarsely calcified gallstone in the neck of the gallbladder with possible slight thickening of the gallbladder wall. Ultrasound correlation is suggested. Otherwise, no definable abnormality of the abdomen or pelvis. Bilateral lower lobe atelectasis-infiltrate. Please correlate with clinical factors. Ultrasound ordered. IMPRESSION: 2 gallstones identified without wall thickening or tenderness to suggest acute cholecystitis. No biliary ductal dilatation. Patient with no apparent acute surgical condition at this time. I have spoken with the patient at great length and recommend to return to the ED in 12 hours for abdominal re-examination. The patient displays understanding. I have done teaching at the bedside and what to symptomatolgy to watch out for and when to return to the ED. The patient remained stable throughout their ED stay. My clinical impression was discussed with thepatient/family. Labs and radiology results were reviewed with them. I gave them the opportunity to ask questions, and addressed them as completely as possible given the information available at present. The therapeutic plan was discussed, advised to take medications as instructed, instructions weregiven and the importance of primary care follow up was stressed and encouraged. The patient/family voiced understanding of the plan, indications to return, and the need for follow up. Cosigned by Charles Nunez MD at 10/29/2023 4:29 PM CDT * Lucy Cummins RN - 10/28/2023 9:35 AM CDT Patient reports abdominal pain ongoing for several days. Patient states that he has N/V/D. Patient states he went to urgent care for work note but was referred here. Jacek reports ULQ pain. documented in this encounter Miscellaneous Notes * PatientPass Patient Instructions - Lisa Silva APRN, AUTOMATIC SERGING MACHINE OPERATOR - 10/28/2023 1:40 PM CDT Images from the original note were not included. Patient Education Table of Contents Cholelithiasis To view videos and all your education online visit, [email or web address] or scan this QR code with your smartphone. Access to this content will in one year. Cholelithiasis Cholelithiasis happens when gallstones form in the gallbladder. The gallbladder stores bile. Bile is a fluid that helps digest fats. Bile can harden and form into gallstones. If they cause a blockage, they can cause pain (gallbladder attack). What are the causes? This condition may be caused by: Too much bilirubin in the bile. This happens if you have sickle cell anemia. Too much of a fat-like substance (cholesterol) in your bile. Not enough bile salts in your bile. These salts help the body absorb and digest fats. The gallbladder not emptying fully or often enough. This is common in women. What increases the risk? The following factors may make you more likely to develop this condition: Being older than age 40. Eating a lot of fried foods, fat, and refined carbs (refined carbohydrates). Being female. Being many times. Using medicines with female hormones in them for a long time. Losing weight fast. Having gallstones in your family. Having health problems, such as diabetes, obesity, Crohn's disease, or liver disease. What are the signs or symptoms? Often, there may be gallstones but no symptoms. These gallstones are called silent gallstones. If agallstone causes a blockage, you may get sudden pain. The pain: Can be in the upper right part of your belly (abdomen). Normally comes at night or after you eat. Can last an hour or more. Can spread to your right shoulder, back, or chest. Can feel like discomfort, burning, or fullness in the upper part of your belly (indigestion). If the blockage lasts more than a few hours, you can get an infection or swelling. You may: Vomit or feel like you may vomit (nauseous). Feel bloated. Have belly pain for 5 hours or more. Feel tender in your belly, often in the upper right part and under your ribs. Have a fever or chills. Have skin or the white parts of your eyes turn yellow (jaundice). Have dark pee (urine) or pale poop (stool). How is this treated? Treatment for this condition depends on how bad you feel. If you have symptoms, you may need: Home care, if symptoms are not very bad. ? Do not eat for 12?24 hours. Drink only water and clear liquids. ? After 1 or 2 days, start to eat simple or clear foods. Try broth and crackers. ? You may need medicines for pain or stomach upset or both. ? If you have an infection, you will need antibiotics. A hospital stay, if you have very bad pain or a very bad infection. Surgery to remove your gallbladder. You may need this if: ? Gallstones keep coming back. ? You have very bad symptoms. Medicines to break up gallstones. Medicines may be used for 6?12 months. A procedure to find and take out gallstones or to break up gallstones. Follow these instructions at home: Medicines Take [id number] and prescription medicines only as told by your doctor. If you were prescribed antibiotics, take them as told by your doctor. Do not stop taking them even if you start to feel better. Ask your doctor if you should avoid driving or using machines while you are taking your medicine. Eating and drinking Drink enough fluid to keep your pee pale yellow. Drink water or clear fluids. This is important when you have pain. Eat healthy foods. Choose: ? Fewer fatty foods, such as fried foods. ? Fewer refined carbs. Avoid breads and grains that are highly processed, such as white bread and white rice. Choose whole grains, such as whole-wheat bread and brown rice. ? More fiber. Almonds, fresh fruit, and beans are healthy sources. General instructions Keep a healthy weight. Keep all follow-up visits. You may need to see a specialist or a surgeon. Where to find more information National [place] of Diabetes and Digestive and Kidney Diseases: niddk.nih.gov Contact a doctor if: You have sudden pain in the upper right part of your belly. Pain might spread to your right shoulder, back, or chest. Your pain lasts more than 2 hours. You have been diagnosed with gallstones that have no symptoms and you get: ? Belly pain. ? Discomfort, burning, or fullness in the upper part of your abdomen. You keep feeling like you may vomit. You have dark pee or pale poop. Get help right away if: You have pain in your abdomen, that: ? Lasts more than 5 hours. ? Keeps getting worse. You have a fever or chills. You can't stop vomiting. Your skin or the white parts of your eyes turn yellow. This information is not intended to replace advice given to you by your health care provider. Make sure you discuss any questions you have with your health care provider. Document Released: 2008-08-23 Document Updated: 2022-12-20 Document Reviewed: 2022-12-20 [employer] Patient Education ? 2023 [employer] documented in this encounter Plan of Treatment Not on file documented as of this encounter Procedures Procedure Name Priority Date/Time Associated Diagnosis Comments US ABDOMEN LIMITED LEVEL 3 THREE ORGAN Stat with Interpretation 10/28/2023 1:31 PM CDT URINALYSIS REFLEX IF INDICATED BY ABNORMAL RESULTS STAT 10/28/2023 11:[address] ABDOMEN PELVIS W/ CONTRAST Stat with Interpretation 10/28/2023 10:46 AM CDT EXTRA TUBES STAT 10/28/2023 9:38 AM CDT GOLD TOP TUBE STAT 10/28/2023 9:38 AM CDT BLUE TOP TUBE STAT 10/28/2023 9:38 AM CDT CBC WITH AUTO DIFFERENTIAL STAT 10/28/2023 9:38 AM CDT LIPASE STAT 10/28/2023 9:38 AM CDT CMP (COMPREHENSIVE METABOLIC PANEL) STAT 10/28/2023 9:38 AM CDT COMPLETE BLOOD COUNT (CBC) WITH DIFF STAT 10/28/2023 9:38 AM CDT documented in this encounter Results * US ABDOMEN LIMITED LEVEL 3 THREE ORGAN (10/28/2023 1:31 PM CDT) Anatomical Region Laterality Modality Abdomen N/A Ultrasound 10/28/2023 1:42 PM CDT Impressions 10/28/2023 1:44 PM CDT IMPRESSION: 2 gallstones identified without wall thickening or tenderness to suggest acute cholecystitis. No biliary ductal dilatation. Narrative 10/28/2023 1:44 PM CDT EXAM DESCRIPTION: ?? US ABDOMEN LIMITED LEVEL 3 THREE ORGAN REASON FOR STUDY: ?? gallstone with abdominal pain for 4 days. TECHNIQUE: Ultrasound of the right upper quadrant of the abdomen was performed with grayscale and color doppler. COMPARISON: ?? 10/28/2023 CT scan suggesting gallstone and gallbladder wall thickening. FINDINGS: PANCREAS: ?? Visualized portions of the pancreas are within normal limits. Portions of the pancreatic body and tail are obscured due to bowel gas. LIVER: ?? The liver appears normal in echotexture and echogenicity. No focal lesion identified. The main portal vein is patent with antegrade flow. GALLBLADDER: ?? Distended containing 2 echogenic foci consistent with stones casting posterior acoustical shadows. ??1 is mobile measuring 2.1 cm non mobile stone measures 1.7 cm. ??Gallbladder wall demonstrates a thickness of 0.2 cm, within normal range. ??No adjacent fluid or adjacent hepatic edema. ??No tenderness reported while scanning the fundus. ?? BILIARY: ?? There is no intrahepatic or extrahepatic biliary ductal dilatation. ??Common bile duct measures ??0.5 cm ??in diameter. RIGHT KIDNEY: ?? Normal size. Normal echogenicity. No solid mass or cyst. ??No hydronephrosis. ??Measures ??11.2 ??cm in length. OTHER: ?? No other significant findings. THIS IS AN ELECTRONICALLY VERIFIED FINAL REPORT 10/28/2023 1:42 PM - Electronically signed by ??Paulnio Salomon M.D. RB: SOSA D: ??10/28/2023 1:42 PM T: ??10/28/2023 1:42 PM Report ID: [id number] Reading Location: ??[id number] Procedure Note Paulino Salomon MD - 10/28/2023 EXAM DESCRIPTION: US ABDOMEN LIMITED LEVEL 3 THREE ORGAN REASON FOR STUDY: gallstone with abdominal pain for 4 days. TECHNIQUE: Ultrasound of the right upper quadrant of the abdomen was performed with grayscale and color doppler. COMPARISON: 10/28/2023 CT scan suggesting gallstone and gallbladder wall thickening. FINDINGS: PANCREAS: Visualized portions of the pancreas are within normal limits. Portions of the pancreatic body and tail are obscured due to bowel gas. LIVER: The liver appears normal in echotexture and echogenicity. No focal lesion identified. The main portal vein is patent with antegrade flow. GALLBLADDER: Distended containing 2 echogenic foci consistent with stones casting posterior acoustical shadows. 1 is mobile measuring 2.1 cm non mobile stone measures 1.7 cm. Gallbladder wall demonstrates a thickness of 0.2 cm, within normal range. No adjacent fluid or adjacent hepatic edema. No tenderness reported while scanning the fundus. BILIARY: There is no intrahepatic or extrahepatic biliary ductal dilatation. Common bile duct measures 0.5 cm in diameter. RIGHT KIDNEY: Normal size. Normal echogenicity. No solid mass or cyst. No hydronephrosis. Measures 11.2 cm in length. OTHER: No other significant findings. THIS IS AN ELECTRONICALLY VERIFIED FINAL REPORT 10/28/2023 1:42 PM - Electronically signed by Paulino Salomon M.D. RB: SOSA Report ID: [id number] Reading Location: [id number] IMPRESSION: 2 gallstones identified without wall thickening or tenderness to suggest acute cholecystitis. No biliary ductal dilatation. Lisa Silva APRN, CNP G US ORDERABLES Fin al Result * (ABNORMAL) URINALYSIS REFLEX IF INDICATED BY ABNORMAL RESULTS (10/28/2023 11:56 AM CDT) SPECIFIC GRAVITY 1.005 1.003 - 1.030 10/28/2023 12:53 PM CDT [facility] URINE PH 8.0 5.0 - 9.0 10/28/2023 12:53 PM CDT [facility] WBC ESTERASE Negative Negative 10/28/2023 12:53 PM CDT [facility] NITRITE Negative Negative 10/28/2023 12:53 PM CDT [facility] PROTEIN, RANDOM URINE 15 mg/dL(A) Negative 10/28/2023 12:53 PM CDT [facility] URINE GLUCOSE, QUAL Negative Negative 10/28/2023 12:53 PM CDT [facility] URINE KETONES Negative Negative 10/28/2023 12:53 PM CDT [facility] UROBILINOGEN Normal Normal mg/dL 10/28/2023 12:53 PM CDT [facility] URINE BLOOD Negative Negative erika/ul 10/28/2023 12:53 PM CDT [facility] URINALYSIS COLOR Yellow 10/28/19 24 12:53 PM CDT [facility] URINALYSIS CLARITY Clear 10/28/2023 12:53 PM CDT [facility] Urine URINE SPECIMEN COLLECTION, CLEAN CATCH / Unknown Non-Phlebotomy Collection / Unknown 10/28/2023 11:56 AM CDT 10/28/2023 12:15 PM CDT us Lisa Silva APRN, CNP URINE ORDERABLES Yanet l Result [facility] [place] [address] * CT ABDOMEN PELVIS W/ CONTRAST (10/28/2023 10:46 AM CDT) Anatomical Region Laterality Modality Abdomen N/A Computed Tomogra phy 10/28/2023 11:3 4 AM CDT Impressions 10/28/2023 11:36 AM CDT IMPRESSION: 2 cm coarsely calcified gallstone in the neck of the gallbladder with possible slight thickening of the gallbladder wall. Ultrasound correlation is suggested. Otherwise, no definable abnormality of the abdomen or pelvis. Bilateral lower lobe atelectasis-infiltrate. Please correlate with clinical factors. Narrative 10/28/2023 11:36 AM CDT EXAM DESCRIPTION: ?? CT ABDOMEN PELVIS W/ CONTRAST REASON FOR STUDY: ?? LLQ abdominal pain for 4 days. N/V on Tuesday, but since resolved. Diarrhea starting yesterday. Smoker ?? TECHNIQUE: CT scan of the abdomen and pelvis performed with intravenous and ??without ??oral contrast using helical scanning technique with dynamic intravenous contrast injection. Reconstructed coronal and sagittal MPR images reviewed. All images stored on PACS. Automated exposure control was used as a dose optimization technique for this examination. CONTRAST TYPE/DOSE: ?? 100mL of IOPAMIDOL 76 % IV SOLN ??injected via ?? Intravenous COMPARISON: ?? No comparison. FINDINGS: LOWER CHEST: ?? Areas of infiltrate-consolidation in the lower lung luevano bilaterally in keeping with atelectasis-infiltrate. ??No definable pleural effusion. ??Included lung bases otherwise are grossly normal.. LIVER: ?? Normal size. ??No identified cystic or solid masses. GALLBLADDER: ?? There is a 2 cm coarsely calcified lucent centered gallstone within the neck of the gallbladder. ??Possible slight thickening of the gallbladder wall. ??Would recommend ultrasound for correlation. BILE DUCTS: ?? No intrahepatic or extrahepatic ductal dilatation. SPLEEN: ?? Normal size. ??No focal lesions. PANCREAS: ?? No identified cystic or solid masses. No significant calcifications. No adjacent inflammation or peripancreatic fluid collections. Pancreatic duct not dilated. ?? ADRENALS: ?? Normal. KIDNEYS/URINARY TRACT: ?? No identified significant cystic or solid masses. No visualized stones. No hydronephrosis or hydroureter. Symmetric enhancement. ?Urinary bladder is unremarkable. GI: ?? No dilated bowel loops. No obvious wall thickening. ??Normal appendix. ??No significant diverticular disease. PERITONEUM: ?? No ascites or free air. RETROPERITONEUM: ?? No mass or adenopathy. REPRODUCTIVE: ?? No significant abnormality. VASCULATURE: ?? No abdominal aortic aneurysm. MUSCULOSKELETAL: ?? No significant abnormality. OTHER: ?? No other abnormality. THIS IS AN ELECTRONICALLY VERIFIED FINAL REPORT 10/28/2023 11:34 AM - Electronically signed by ??Kamlesh Patrick M.D. LC: SHANTHI D: ??10/28/2023 11:34 AM T: ??10/28/2023 11:34 AM Report ID: [id number] Reading Location: ??[id number] Procedure Note Georgia Patrick MD - 10/28/2023 EXAM DESCRIPTION: CT ABDOMEN PELVIS W/ CONTRAST REASON FOR STUDY: LLQ abdominal pain for 4 days. N/V on Tuesday, but since resolved. Diarrhea starting yesterday. Smoker TECHNIQUE: CT scan of the abdomen and pelvis performed with intravenous and without oral contrast using helical scanning technique with dynamic intravenous contrast injection. Reconstructed coronal and sagittal MPR images reviewed. All images stored on PACS. Automated exposure control was used as a dose optimization technique for this examination. CONTRAST TYPE/DOSE: 100mL of IOPAMIDOL 76 % IV SOLN injected via Intravenous COMPARISON: No comparison. FINDINGS: LOWER CHEST: Areas of infiltrate-consolidation in the lower lung luevano bilaterally in keeping with atelectasis-infiltrate. No definable pleural effusion. Included lung bases otherwise are grossly normal.. LIVER: Normal size. No identified cystic or solid masses. GALLBLADDER: There is a 2 cm coarsely calcified lucent centered gallstone within the neck of the gallbladder. Possible slight thickening of the gallbladder wall. Would recommend ultrasound for correlation. BILE DUCTS: No intrahepatic or extrahepatic ductal dilatation. SPLEEN: Normal size. No focal lesions. PANCREAS: No identified cystic or solid masses. No significant calcifications. No adjacent inflammation or peripancreatic fluid collections. Pancreatic duct not dilated. ADRENALS: Normal. KIDNEYS/URINARY TRACT: No identified significant cystic or solid masses. No visualized stones. No hydronephrosis or hydroureter. Symmetric enhancement. Urinary bladder is unremarkable. GI: No dilated bowel loops. No obvious wall thickening. Normal appendix. No significant diverticular disease. PERITONEUM: No ascites or free air. RETROPERITONEUM: No mass or adenopathy. REPRODUCTIVE: No significant abnormality. VASCULATURE: No abdominal aortic aneurysm. MUSCULOSKELETAL: No significant abnormality. OTHER: No other abnormality. THIS IS AN ELECTRONICALLY VERIFIED FINAL REPORT 10/28/2023 11:34 AM - Electronically signed by Kamlesh Patrick M.D. LC: SHANTHI Report ID: [id number] Reading Location: [id number] IMPRESSION: 2 cm coarsely calcified gallstone in the neck of the gallbladder with possible slight thickening of the gallbladder wall. Ultrasound correlation is suggested. Otherwise, no definable abnormality of the abdomen or pelvis. Bilateral lower lobe atelectasis-infiltrate. Please correlate with clinical factors. us Lisa Silva APRN, CNP IMG CT ORDERABLES Fin al Result * Gold Top Tube (10/28/2023 9:38 AM CDT) Blood No Phlebotomy Charged / Unknown 10/28/2023 9:38 AM CDT 10/28/2023 9:50 AM CDT Lisa Silva APRN, CNP CHEMISTRY ORDERABLES Final Result Performing Organization Address City/[facility] Co de Phone Number [facility] [place] [address] * Blue Top Tube (10/28/2023 9:38 AM CDT) Blood No Phlebotomy Charged / Unknown 10/28/2023 9:38 AM CDT 10/28/2023 9:50 AM CDT us Lisa Silva APRN, CNP HEMATOLOGY ORDERABLES Final Result Performing Organization Address City/[facility] Co de Phone Number [facility] [place] [address] * (ABNORMAL) CBC with Auto Differential (10/28/2023 9:38 AM CDT) WBC 11.43 4.00 - 12.00 10(3)/[facility] 10/28/2023 9:53 AM CDT [facility] RBC 5.30 4.40 - 5.80 10(6)/[facility] 10/28/2023 9:53 AM CDT [facility] HEMOGLOBIN (HGB) 15.8 13.0 - 16.5 g/dL 10/28/2023 9:53 AM CDT [facility] HEMATOCRIT (HCT) 46.4 38.0 - 50.0 % 10/28/2023 9:53 AM CDT [facility] MCV 87.5 82.0 - 96.0 fL 10/28/2023 9:53 AM CDT [facility] MCH 29.8 26.0 - 32.0 pg 10/28/2023 9:53 AM CDT [facility] MCHC 34.1 31.0 - 36.0 g/dL 10/28/2023 9:53 AM CDT [facility] PLATELET COUNT 272 140 - 440 10(3)/[facility] 10/28/2023 9:53 AM CDT [facility] RDW 13.3 11.8 - 15.5 % 10/28/2023 9:53 AM CDT [facility] MPV 9.3 8.0 - 12.6 fL 10/28/2023 9:53 AM CDT [facility] NEUTROPHILS 66.9 40.0 - 68.0 % 10/28/2023 9:53 AM CDT [facility] LYMPHOCYTES 20.8 19.0 - 49.0 % 10/28/2023 9:53 AM CDT [facility] MONOCYTES 7.7 3.0 - 13.0 % 10/28/2023 9:53 AM CDT [facility] EOSINOPHILS 3.8 0.0 - 8.0 % 10/28/2023 9:53 AM CDT [facility] BASOPHILS 0.8 0.0 - 1.0 % 10/28/2023 9:53 AM CDT [facility] ABSOLUTE NEUTROPHILS 7.65(H) 1.40 - 5.30 10(3)/[facility] 10/28/2023 9:53 AM CDT [facility] ABSOLUTE LYMPHOCYTES 2.38 0.90 - 3.30 10(3)/[facility] 10/28/2023 9:53 AM CDT [facility] ABSOLUTE MONOCYTES 0.88 0.10 - 0.90 10(3)/[facility] 10/28/2023 9:53 AM CDT [facility] ABSOLUTE EOSINOPHIL 0.43 0.00 - 0.50 10(3)/[facility] 10/28/2023 9:53 AM CDT [facility] ABSOLUTE BASOPHILS 0.09 0.00 - 0.10 10(3)/[facility] 10/28/2023 9:53 AM CDT [facility] NRBC PER 100 WBC 0 10/28/19 9:53 AM CDT [facility] Blood Venipuncture / Unknown 10/28/2023 9:38 AM CDT 10/28/2023 9:49 AM CDT us Lisa Silva APRN, CHELA HEMATOLOGY ORDERABLES Final Result [facility] [address] [place] [address] * Lipase [id number] (10/28/2023 9:38 AM CDT) LIPASE 26 8 - 78 U/L 10/28/2023 10:09 AM CDT [facility] Blood Venipuncture / Unknown 10/28/2023 9:38 AM CDT 10/28/2023 9:49 AM CDT us Lisa Silva APRN, AUTOMATIC SERGING MACHINE OPERATOR CHEMISTRY ORDERABLES Final Result [facility] [address] [place] [address] * (ABNORMAL) Comprehensive Metabolic Panel (Cmp) [id number] (10/28/2023 9:38 AM CDT) SODIUM 141 136 - 145 mmol/L 10/28/2023 10:09 AM CDT [facility] POTASSIUM 3.7 3.5 - 5.1 mmol/L 10/28/2023 10:09 AM CDT [facility] CHLORIDE 107 98 - 107 mmol/L 10/28/2023 10:09 AM CDT [facility] CO2, VENOUS 25 22 - 30 mmol/L 10/28/2023 10:09 AM CDT [facility] ANION GAP 12.7 <18.0 mmol/L 10/28/2023 10:09 AM CDT [facility] GLUCOSE 110(H) 70 - 99 mg/dL 10/28/2023 10:09 AM CDT [facility] BUN 9 9 - 21 mg/dL 10/28/2023 10:09 AM CDT [facility] CREATININE, BLOOD 0.84 0.70 - 1.30 mg/dL 10/28/2023 10:09 AM T [facility] BUN/CREATININE RATIO 11(L) 12 - 20 ratio 10/28/2023 10:09 AM T [facility] TOTAL PROTEIN 7.3 6.3 - 8.2 g/dL 10/28/2023 10:09 AM CDT [facility] ALBUMIN 4.7 3.5 - 5.0 g/dL 10/28/2023 10:09 AM CDT [facility] A/G RATIO 1.8 1.0 - 2.2 10/28/2023 10:09 AM CDT [facility] CALCIUM 9.5 8.7 - 10.5 mg/dL 10/28/2023 10:09 AM CDT [facility] T BILI 0.5 0.2 - 1.2 mg/dL 10/28/2023 10:09 AM CDT [facility] SGOT (AST) 13 5 - 34 U/L 10/28/2023 10:09 AM CDT [facility] SGPT (ALT) 15 0 - 55 U/L 10/28/2023 10:09 AM CDT [facility] ALKALINE PHOSPHATASE 85 40 - 150 U/L 10/28/2023 10:09 AM CDT [facility] GFR, ESTIMATED >60 >=60 10/28/2023 10:09 AM CDT [facility] Comment: Creatinine Clearance is the preferred criteria for selecting drug dose adjustments in renally impaired patients. ??The GFR is provided as additional pertinent clinical information. GFR is reported in mL/min/1.73 sq m. Calculation based on the Chronic Kidney Disease Epidemiology Collaboration (CKD- EPI) equation refit without adjustment for race. GFR, EST. >60 >=60 024 10:09 AM CDT [facility] GFR, EST. NONAFRICAN >60 >=60 10/28/2023 10:09 AM CDT [facility] Blood Venipuncture / Unknown 10/28/2023 9:38 AM CDT 10/28/2023 9:49 AM CDT us Lisa Silva APRN, CNP CHEMISTRY ORDERABLES Final Result [facility] [address] [place] [address] documented in this encounter Visit Diagnoses Diagnosis Cholelithiasis- Primary Calculus of gallbladder without mention of cholecystitis or obstruction documented in this encounter Administered Medications Inactive Administered Medications - up to 3 most recent administrations Medication Order MAR Action Action Date Dose Rate Site 0.9 % sodium chloride solution at 999 mL/hr, Intravenous, ONCE, 1 dose, On Tue10/28/23 at 1030 New Bag 10/28/2023 10:05 AM CDT 1,000 mL 999 mL/hr iopamidol (ISOVUE-370) 76 % injection 100 mL 100 mL, Intravenous, ONCE, 1 dose, On Tue10/28/23 at 1030 Given 10/28/2023 10:40 AM CDT 100 mL ketorolac (TORADOL) injection 30 mg 30 mg, Intravenous, ONCE, 1 dose, On Tue10/28/23 at 1030 Given 10/28/2023 10:30 AM CDT 30 mg ondansetron (ZOFRAN) injection 4 mg 4 mg, Intravenous, ONCE, 1 dose, On Tue10/28/23 at 1030 Given 10/28/2023 10:04 AM CDT 4 mg documented in this encounter Active and Recently Administered Medications Times are shown in CDT. Scheduled Medication Order 10/26/2023 10/27/2023 10/28/2023 0.9 % sodium chloride solution (COMPLETED) at 999 mL/hr, Intravenous, ONCE, 1 dose, On Tue10/28/23 at 1030 1005 (New Bag - Prov ider: Joselyn Thomason RN)[id number] (Stopped - Provider: Joselyn Thomason RN) iopamidol (ISOVUE-370) 76 % injection 100 mL (COMPLETED) 100 mL, Intravenous, ONCE, 1 dose, On Tue10/28/23 at 1030 1040 (Given - Provid er: Zoran Rosen, RT(R) (CT)) ketorolac (TORADOL) injection 30 mg (COMPLETED) 30 mg, Intravenous, ONCE, 1 dose, On Tue10/28/23 at 1030 1030 (Given - Provid er: Joselyn Thomason RN - Comment: Barcode would not scan with amelia tries. verfied by two RNs beffore given) ondansetron (ZOFRAN) injection 4 mg (COMPLETED) 4 mg, Intravenous, ONCE, 1 dose, On Tue10/28/23 at 1030 1004 (Given - Provid er: Joselyn Thomason RN) documented in this encounter Care Teams Certified Coding Specialist Relationship Specialty Start Date End Date Arleth Luevano APRN, CHELA [address] [place] [id number] PCP - General Family Medicine 04/16/21 documented as of this encounter
== END 2024-03-21 13:13 | disposition home or self-care (01) ==
PROVIDERS: Emergency Provider Nurse Practitioner; PCP Nurse Practitioner Family
DX: J32.9 Chronic sinusitis, unspecified (principal); F17.210 Nicotine dependence, cigarettes, uncomplicated; F12.90 Cannabis use, unspecified, uncomplicated
CPT/HCPCS: 87081; 87880; 99213; G0463